=== PATIENT | female | born 1940 | race Caucasian/White ===

== ENCOUNTER 2020-06-07 19:21 | Observation (INO) | payer MEDICARE, BC ==
[2020-06-07] MEDS ORDERED: SODIUM CHLORIDE 0.9% 500 ML 500 ML IV STA (19:56)
[2020-06-07] MEDS ORDERED: ONDANSETRON 4 MG/2 ML VIAL IVP STA (19:56)
--- NOTE | 2020-06-07 20:06 | ED ---
General Adult HPI - General Chief complaint: Dizziness Stated complaint: Dizziness Time Seen by Provider: 06/07/20 19:52 Source: patient, EMS, RN notes reviewed, old records reviewed Mode of arrival: EMS Limitations: no limitations - History of Present Illness Initial comments: 79-year-old female presenting with vomiting, dizziness. Patient states she had eaten out at a restaurant, had, home and begun to do some also chores when she acutely began to vomit and felt quite dizzy. She does have a history of vertigo but states this was not the same as her typical vertigo. She reports some epigastric abdominal pain. She vomited several times at home. She denies chest pain or dyspnea. Denies focal numbness or weakness. Denies headache. - Related Data Allergies Allergy/AdvReac Type Severity Reaction Status Date / Time No Known Allergies Allergy Verified 06/07/20 19:30 Review of Systems ROS Statement: Those systems with pertinent positive or pertinent negative responses have been documented in the HPI. ROS Other: All systems not noted in ROS Statement are negative. Past Medical History Past Medical History: Hypertension Additional Past Medical History / Comment(s): Vertigo History of Any Multi-Drug Resistant Organisms: None Reported Past Surgical History: Appendectomy, Section, Cholecystectomy Past Psychological History: No Psychological Hx Reported Smoking Status: Current every day smoker Past Alcohol Use History: None Reported Past Drug Use History: None Reported General Exam Limitations: no limitations General appearance: alert, in no apparent distress Head exam: Present: atraumatic, normocephalic Eye exam: Present: normal appearance, PERRL ENT exam: Present: normal exam Neck exam: Present: normal inspection. Absent: tenderness, meningismus Respiratory exam: Present: normal lung sounds bilaterally. Absent: respiratory distress, wheezes Cardiovascular Exam: Present: regular rate, normal rhythm GI/Abdominal exam: Present: soft, tenderness (Mild epigastric tenderness). Absent: distended Extremities exam: Present: normal inspection, normal capillary refill. Absent: pedal edema Neurological exam: Present: alert, oriented X3, CN II-XII intact. Absent: motor sensory deficit Psychiatric exam: Present: normal affect, normal mood Skin exam: Present: warm, dry, intact. Absent: cyanosis, diaphoretic Course Vital Signs 06/07/20 06/07/20 06/07/20 19:23 19:32 22:12 Temperature 97.6 F Pulse Rate 72 75 Respiratory 18 18 Rate Blood Pressure 124/72 144/89 O2 Sat by Pulse 99 96 Oximetry EKG Findings - EKG Comments: EKG Findings:: EKG: Sinus rhythm with marked sinus arrhythmia occasional PVC, rate of 73, WI interval 206, QRS duration 68, QTC 467, question ST segment depression in V6. Medical Decision Making - Medical Decision Making 79-year-old presenting with acute onset nausea vomiting, dizziness. She has a nonfocal neurologic exam, no ataxia. Minimal epigastric tenderness. She has normal CBC, CO2 is 17, lactic is 2.3. She has otherwise normal laboratory testing. Chest x-ray negative for acute cardio pulmonary disease, x-ray of the abdomen is negative for obstruction or intraperitoneal free air. She will be placed in observation for IV hydration, symptom control. Case discussed with Dr. Cancino, who will admit. - Lab Data Result diagrams: 06/07/20 20:18 06/07/20 20:18 Lab Results 06/07/20 06/07/20 06/07/20 Range/Units 20:18 20:18 20:18 WBC 9.3 (3.8-10.6) k/uL RBC 3.94 (3.80-5.40) m/uL Hgb 12.1 (11.4-16.0) gm/dL Hct 38.0 (34.0-46.0) % MCV 96.5 (80.0-100.0) fL MCH 30.8 (25.0-35.0) pg MCHC 31.9 (31.0-37.0) g/dL RDW 16.8 H (11.5-15.5) % Plt Count 203 (150-450) k/uL Neutrophils % 67 % Lymphocytes % 22 % Monocytes % 6 % Eosinophils % 3 % Basophils % 1 % Neutrophils # 6.2 (1.3-7.7) k/uL Lymphocytes # 2.0 (1.0-4.8) k/uL Monocytes # 0.6 (0-1.0) k/uL Eosinophils # 0.2 (0-0.7) k/uL Basophils # 0.1 (0-0.2) k/uL Hypochromasia Slight Anisocytosis Slight PT 10.0 (9.0-12.0) sec INR 1.0 (<1.2) Sodium (137-145) mmol/L Potassium (3.5-5.1) mmol/L Chloride (98-107) mmol/L Carbon Dioxide (22-30) mmol/L Anion Gap mmol/L BUN (7-17) mg/dL Creatinine (0.52-1.04) mg/dL Est GFR (CKD-EPI)AfAm (>60 ml/min/1.73 sqM) Est GFR (CKD-EPI)NonAf (>60 ml/min/1.73 sqM) Glucose (74-99) mg/dL Plasma Lactic Acid David (0.7-2.0) mmol/L Calcium (8.4-10.2) mg/dL Total Bilirubin (0.2-1.3) mg/dL AST (14-36) U/L ALT (4-34) U/L Alkaline Phosphatase (38-126) U/L Troponin I (0.000-0.034) ng/mL Total Protein (6.3-8.2) g/dL Albumin (3.5-5.0) g/dL Urine Color Light Yellow Urine Appearance Clear (Clear) Urine pH 6.5 (5.0-8.0) Ur Specific [place] 1.012 (1.001-1.035) Urine Protein Negative (Negative) Urine Glucose (UA) Negative (Negative) Urine Ketones Negative (Negative) Urine Blood Negative (Negative) Urine Nitrite Negative (Negative) Urine Bilirubin Negative (Negative) Urine Urobilinogen <2.0 (<2.0) mg/dL Ur Leukocyte Esterase Small H (Negative) Urine RBC 1 (0-5) /hpf Urine WBC 4 (0-5) /hpf Ur Squamous Epith Cells <1 (0-4) /hpf Hyaline Casts 1 (0-2) /lpf Urine Mucus Rare H (None) /hpf 06/07/20 06/07/20 06/07/20 Range/Units 20:18 20:18 20:18 WBC (3.8-10.6) k/uL RBC (3.80-5.40) m/uL Hgb (11.4-16.0) gm/dL Hct (34.0-46.0) % MCV (80.0-100.0) fL MCH (25.0-35.0) pg MCHC (31.0-37.0) g/dL RDW (11.5-15.5) % Plt Count (150-450) k/uL Neutrophils % % Lymphocytes % % Monocytes % % Eosinophils % % Basophils % % Neutrophils # (1.3-7.7) k/uL Lymphocytes # (1.0-4.8) k/uL Monocytes # (0-1.0) k/uL Eosinophils # (0-0.7) k/uL Basophils # (0-0.2) k/uL Hypochromasia Anisocytosis PT (9.0-12.0) sec INR (<1.2) Sodium 139 (137-145) mmol/L Potassium 3.9 (3.5-5.1) mmol/L Chloride 114 H (98-107) mmol/L Carbon Dioxide 17 L (22-30) mmol/L Anion Gap 8 mmol/L BUN 19 H (7-17) mg/dL Creatinine 1.22 H (0.52-1.04) mg/dL Est GFR (CKD-EPI)AfAm 48 (>60 ml/min/1.73 sqM) Est GFR (CKD-EPI)NonAf 42 (>60 ml/min/1.73 sqM) Glucose 131 H (74-99) mg/dL Plasma Lactic Acid David 2.3 H* (0.7-2.0) mmol/L Calcium 8.7 (8.4-10.2) mg/dL Total Bilirubin 0.4 (0.2-1.3) mg/dL AST 24 (14-36) U/L ALT 9 (4-34) U/L Alkaline Phosphatase 61 (38-126) U/L Troponin I <0.012 (0.000-0.034) ng/mL Total Protein 7.9 (6.3-8.2) g/dL Albumin 3.9 (3.5-5.0) g/dL Urine Color Urine Appearance (Clear) Urine pH (5.0-8.0) Ur Specific [place] (1.001-1.035) Urine Protein (Negative) Urine Glucose (UA) (Negative) Urine Ketones (Negative) Urine Blood (Negative) Urine Nitrite (Negative) Urine Bilirubin (Negative) Urine Urobilinogen (<2.0) mg/dL Ur Leukocyte Esterase (Negative) Urine RBC (0-5) /hpf Urine WBC (0-5) /hpf Ur Squamous Epith Cells (0-4) /hpf Hyaline Casts (0-2) /lpf Urine Mucus (None) /hpf Disposition Clinical Impression: Dehydration, Nausea & vomiting Disposition: ADMITTED IP TO THIS HOSP Condition: Stable Is patient prescribed a controlled substance at d/c from ED?: No Referrals: None,Stated [Primary Care Provider] - 1-2 days Decision to Admit Reason: Admit from EC Decision Date: 06/07/20 Decision Time: 22:34
[2020-06-07 20:36] LABS: Anisocytosis Slight; Basophils # (A) 0.1 k/uL (0-0.2); Basophils % (A) 1 %; Eosinophils # (A) 0.2 k/uL (0-0.7); Eosinophils % (A) 3 %; HGB 12.1 gm/dL (11.4-16.0); Hypochromasia Slight; Lymphocytes % (A) 22 %; MCH 30.8 pg (25.0-35.0); MCHC 31.9 g/dL (31.0-37.0); MCV 96.5 fL (80.0-100.0); Mean Platelet Volume 8.5; Monocytes # (A) 0.6 k/uL (0-1.0); Monocytes % (A) 6 %; Neutrophils # (A) 6.2 k/uL (1.3-7.7); Neutrophils % (A) 67 %; Platelet Count 203 k/uL (150-450); RBC 3.94 m/uL (3.80-5.40); RDW 16.8 % (11.5-15.5); WBC 9.3 k/uL (3.8-10.6)
[2020-06-07 20:45] LABS: Albumin 3.9 g/dL (3.5-5.0); Calcium 8.7 mg/dL (8.4-10.2); Potassium 3.9 mmol/L (3.5-5.1); Total Bilirubin 0.4 mg/dL (0.2-1.3); Total Protein 7.9 g/dL (6.3-8.2)
--- NOTE | 2020-06-07 21:08 | XR ---
EXAMINATION TYPE: XR KUB DATE OF EXAM: 06/07/2020 COMPARISON: NONE HISTORY: Vomiting. Short of breath. TECHNIQUE: Single view FINDINGS: There is no sign of intestinal obstruction or pneumoperitoneum. Fecal pattern is normal. Th ere are clips from cholecystectomy. There are no pathologic calcifications over the kidneys. IMPRESSION: Nonacute abdomen.
--- NOTE | 2020-06-07 21:10 | XR ---
EXAMINATION TYPE: XR chest 2V DATE OF EXAM: 06/07/2020 COMPARISON: NONE HISTORY: Vomiting TECHNIQUE: FINDINGS: There is no heart failure nor confluent pneumonic infiltrate. There is some coarsening of i nterstitial markings. Heart size is normal. There are chest leads. There is no pleural effusion. IMPRESSION: Interstitial fibrotic changes. No heart failure.
[2020-06-07 21:45] LABS: Appearance,Urine Clear (Clear); Bilirubin,Urine Negative (Negative); Blood,Urine Negative (Negative); Color,Urine Light Yellow; Glucose,Urine (UA) Negative (Negative); Hyaline Casts,Urine 1 /lpf (0-2); Ketones,Urine Negative (Negative); Leukocyte Esterase,Urine Small (Negative); Mucus,Urine Rare /hpf; Nitrite,Urine Negative (Negative); PH, Urine 6.5 (5.0-8.0); Protein,Urine Negative (Negative); RBC,Urine 1 /hpf (0-5); Specific Gravity,Urine 1.012 (1.001-1.035); Squamous Epithelial Cell,Urine <1 /hpf (0-4); Urobilinogen,Urine <2.0 mg/dL (<2.0); WBC,Urine 4 /hpf (0-5)
[2020-06-07] MEDS ORDERED: NALOXONE 0.4 MG/ML 1 ML VIAL IV PRN (22:26)
--- NOTE | 2020-06-07 23:40 | P.HPIM ---
History of Present Illness H&P Date: 06/07/20 The patient is an 79-year-old female with a PMH of hypertension and hypothyroidism who presented to the ED with complaints of nausea, vomiting, diarrhea. Patient reports that she was in her usual state of health until this evening when she ate her supper at [employer]) where she had a cod sandwich at around 4:30 pm with her who ate the same. This subsequently returned home and she sat down on her couch to watch TV when she suddenly developed nausea with 4-5 episodes of nonbloody emesis within a period of 10-15 minutes. She also had 2 watery bowel movements, nonbloody. After her bowel movements, she began feeling lightheaded though she did not lose consciousness. She subsequently came to the emergency room where she had another 1-2 episodes of biliary emesis. At time of interview, she reported feeling better, and states that she feel as though she is back to her baseline. Aside from mild epigastric discomfort from the retching, she denied experiencing any additional symptoms. Denied chest discomfort, shortness of breath, palpitations, or diaphoresis. Reports that she has never experienced symptoms like this in the past. Further denied cough, fever, chills, headache, weakness, or numbness. In the emergency room, chest x-ray revealed interstitial fibrotic changes though otherwise unremarkable. Repeat EKG showing sinus rhythm with sinus arrhythmia a nd PVCs at 73 bpm with T-wave inversions in leads V1 and V2. KUB x-ray was unremarkable. Laboratory evaluation revealed a lactic acid of 2.3, BUN 19, creatinine 1.22, bicarb 17, troponin less than 0.012, UA unremarkable, and CBC unremarkable. Review of Systems Pertinent positives and negatives as discussed in HPI, a complete review of systems was performed and all other systems are negative. Past Medical History Past Medical History: Hypertension Additional Past Medical History / Comment(s): Vertigo History of Any Multi-Drug Resistant Organisms: None Reported Past Surgical History: Appendectomy, Section, Cholecystectomy Past Psychological History: No Psychological Hx Reported Smoking Status: Current every day smoker Past Alcohol Use History: None Reported Past Drug Use History: None Reported Medications and Allergies Allergies Allergy/AdvReac Type Severity Reaction Status Date / Time No Known Allergies Allergy Verified 06/07/20 19:30 Physical Exam Vitals: Vital Signs Temp Pulse Resp BP Pulse Ox 06/07/20 22:12 75 18 144/89 96 06/07/20 19:32 97.6 F 06/07/20 19:23 72 18 124/72 99 Intake and Output 06/07/20 06/07/20 06/08/20 14:59 22:59 06:59 Other: Weight 56.699 kg General: non toxic, no distress, appears at stated age, normal weight Derm: no unusual rashes/lesions no unusual ecchymoses, warm, dry Head: atraumatic, normocephalic, symmetric Eyes: EOMI, no lid lag, anicteric sclera, pupils equal round reactive to light ENT: Nose and ears atraumatic, no thrush, no pharyngeal erythema Neck: No thyromegaly, no cervical lymphadenopathy, trachea midline, supple Mouth: no lip lesion, mucus membranes moist Cardiovascular: S1S2 reg, no murmur, positive posterior tibial pulse bilateral, no edema, capillary refill less than 2 seconds Lungs: CTA bilateral, no rhonchi, no rales , no accessory muscle use Abdominal: soft, nontender to palpation, no guarding, no appreciable organomegaly, normal bowel sounds Ext: no gross muscle atrophy, muscle strength 5 out of 5 in all 4 extremities grossly, no contractures, Neuro: CN II-XI grossly intact, light touch intact all 4 extremities, finger to nose within normal limits, Psych: Alert, oriented, appropriate affect Results CBC & Chem 7: 06/07/20 20:18 06/07/20 20:18 Labs: Abnormal Lab Results - Last 24 Hours (Table) 06/07/20 06/07/20 06/07/20 Range/Units 20:18 20:18 20:18 RDW 16.8 H (11.5-15.5) % Chloride 114 H (98-107) mmol/L Carbon Dioxide 17 L (22-30) mmol/L BUN 19 H (7-17) mg/dL Creatinine 1.22 H (0.52-1.04) mg/dL Glucose 131 H (74-99) mg/dL Plasma Lactic Acid David (0.7-2.0) mmol/L Ur Leukocyte Esterase Small H (Negative) Urine Mucus Rare H (None) /hpf 06/07/20 Range/Units 20:18 RDW (11.5-15.5) % Chloride (98-107) mmol/L Carbon Dioxide (22-30) mmol/L BUN (7-17) mg/dL Creatinine (0.52-1.04) mg/dL Glucose (74-99) mg/dL Plasma Lactic Acid David 2.3 H* (0.7-2.0) mmol/L Ur Leukocyte Esterase (Negative) Urine Mucus (None) /hpf Assessment and Plan Plan: Nausea and vomiting, possibly toxic gastroenteritis -Conservative management for now with normal saline 100 mL an hour -Anti-emetics -Clear liquid diet Dizziness, likely orthostatic due to multiple episodes of emesis and diarrhea -Fall precautions Lactic acidosis, likely secondary to above -Monitor to resolution Kidney injury, acute versus chronic, no baseline available -Monitor BMP for now Metabolic acidosis, likely due to diarrhea with lactic acidosis -Monitor to resolution Chronic conditions: Hypertension, hypothyroidism -Hold off on home ASMITA inhibitor in setting of kidney injury -Continue with home Synthroid dose DVT prophylaxis -Heparin subq The patient is admitted with an anticipated less than 2 midnight stay for evaluation of nausea and vomiting CODE STATUS: Full Code Discussed with: Patient Anticipated discharge date: 06/[address]: Home A total of 40 minutes was spent on the care of this complex patient more than 50% of the time was spent in counseling and care coordination.
[2020-06-08] MEDS: SODIUM CHLORIDE 0.9% 1,000 ML IV SCH ×2 (00:14→07:20)
[2020-06-08] MEDS: HEPARIN SODIUM,PORCINE 5,000 UNIT/ML 1 ML VIAL SQ SCH ×2 (00:14→07:20)
[2020-06-08 06:21] LABS: Calcium 8.3 mg/dL (8.4-10.2); Potassium 4.1 mmol/L (3.5-5.1)
[2020-06-08 07:25] VITALS: BP 133/77; PULSE 70; RESP 14; TEMP 97.6
[2020-06-08] MEDS ORDERED: LEVOTHYROXINE 88 MCG TAB PO SCH (09:15)
[2020-06-08] MEDS ORDERED: PRAVASTATIN SODIUM 20 MG TAB PO SCH (09:15)
[2020-06-08] MEDS ORDERED: ASPIRIN 81 MG PO SCH (09:15)
--- NOTE | 2020-06-08 09:48 | P.DS ---
Providers Date of admission: 06/07/20 22:26 Expected date of discharge: 06/08/20 Attending physician: Flory Cancino MD Primary care physician: Stated None Hospital Course: The patient is an 79-year-old female with a PMH of hypertension and h ypothyroidism who presented to the ED with complaints of nausea, vomiting, diarrhea. Patient reports that she was in her usual state of health until this evening when she ate her supper at [employer]) where she had a cod sandwich at around 4:30 pm with her who ate the same. This subsequently returned home and she sat down on her couch to watch TV when she suddenly developed nausea with 4-5 episodes of nonbloody emesis within a period of 10-15 minutes. She also had 2 watery bowel movements, nonbloody. After her bowel movements, she began feeling lightheaded though she did not lose consciousness. She subsequently came to the emergency room where she had another 1-2 episodes of biliary emesis. At time of interview, she reported feeling better, and states that she feel as though she is back to her baseline. Aside from mild epigastric discomfort from the retching, she denied experiencing any additional symptoms. Denied chest discomfort, shortness of breath, palpitations, or diaphoresis. Reports that she has never experienced symptoms like this in the past. Further denied cough, fever, chills, headache, weakness, or numbness. In the emergency room, chest x-ray revealed interstitial fibrotic changes though otherwise unremarkable. Repeat EKG showing sinus rhythm with sinus arrhythmia and PVCs at 73 bpm with T-wave inversions in leads V1 and V2. KUB x-ray was unremarkable. Laboratory evaluation revealed a lactic acid of 2.3, BUN 19, creatinine 1.22, bicarb 17, troponin less than 0.012, UA unremarkable, and CBC unremarkable. Orthostats were negative. She was started on normal saline at 100 mL per hour for conservative management of gastroenteritis. She was able to tolerate her clear liquid diet this morning. She had no further nausea, vomiting or diarrhea. Patient was seen and examined this morning. No acute events overnight. No further symptoms since admission. Would like to go home. She denies any chest pain, shortness breath, palpitations or dizziness. General: [non toxic], [no distress], [appears at stated age] Derm: [warm], [dry] Head: [atraumatic], [normocephalic], [symmetric] Eyes: [EOMI], [no lid lag], [anicteric sclera] Mouth: [no lip lesion], [mucus membranes moist] Cardiovascular: [S1S2 reg], [no murmur], [positive DP pulse bilateral], Lungs: [CTA bilateral], [no rhonchi, no rales] , [no accessory muscle use] Abdominal: [soft], [ nontender to palpation], [no guarding], [no appreciable organomegaly] Ext: [no gross muscle atrophy], [no edema], [no contractures] Neuro: [no focal neuro deficits] Psych: [Alert], [oriented], [appropriate affect] Nausea and vomiting, possibly toxic gastroenteritis -DC IVF and encourage hydration by mouth -Anti-emetics -Clear liquid diet and advanced Kidney injury, acute versus chronic, no baseline available -Monitor BMP for now -Improved Metabolic acidosis, likely due to diarrhea with lactic acidosis -Monitor to resolution Chronic conditions: Hypertension, hypothyroidism -Hold off on home ASMITA inhibitor in setting of kidney injury -Continue with home Synthroid dose DVT prophylaxis -Heparin subq Resolved: Dizziness and lactic acidosis [Patient admitted for conservative management of gastroenteritis. Her symptoms have improved. Anticipate DC home today. ] Pertinent Studies: KUB, chest x-ray Patient Condition at Discharge: Stable Plan - Discharge Summary Discharge Rx Participant: No New Discharge Prescriptions: No Action Pravastatin Sodium [Pravachol] 10 mg PO DAILY Levothyroxine Sodium [Synthroid] 88 mcg PO DAILY Cholecalciferol [Vitamin D3 (25 Mcg = 1000 Iu)] 2,000 unit PO DAILY Aspirin [Adult Low Dose Aspirin EC] 81 mg PO DAILY amLODIPine [Norvasc] 5 mg PO DAILY Benazepril HCl 40 mg PO DAILY Discharge Medication List Aspirin [Adult Low Dose Aspirin EC] 81 mg PO DAILY 06/08/20 [History] Benazepril HCl 40 mg PO DAILY 06/08/20 [History] Cholecalciferol [Vitamin D3 (25 Mcg = 1000 Iu)] 2,000 unit PO DAILY 06/08/20 [History] Levothyroxine Sodium [Synthroid] 88 mcg PO DAILY 06/08/20 [History] Pravastatin Sodium [Pravachol] 10 mg PO DAILY 06/08/20 [History] amLODIPine [Norvasc] 5 mg PO DAILY 06/08/20 [History] Follow up Appointment(s)/Referral(s): None,Stated [Primary Care Provider] - 1-2 days
== END 2020-06-08 10:55 | disposition home or self-care (01) ==
LOC: EC 19:21 → 1SOBS 22:26
PROVIDERS: ADMIT Internal Medicine; ATTEND Internal Medicine
DX: K52.9 Noninfective gastroenteritis and colitis, unspecified (principal); E86.0 Dehydration; E87.2 Acidosis; I10 Essential (primary) hypertension; N28.9 Disorder of kidney and ureter, unspecified; R42 Dizziness and giddiness; F17.200 Nicotine dependence, unspecified, uncomplicated; E03.9 Hypothyroidism, unspecified; I49.3 Ventricular premature depolarization; Z90.49 Acquired absence of other specified parts of digestive tract; Z98.891 History of uterine scar from previous surgery
CPT/HCPCS: 96372; 96361; 96374; 99285; 36415; 93005; 80053; 80048; 83605; 84484; 85025; 85610; 81001; 71046; 74018; G0378 ×2; J1644; J2405

== ENCOUNTER 2020-09-24 08:02 | Day surgery (SDC) | payer MEDICARE, BC ==
[2020-09-18 15:42] VITALS: BMI 24.0
[~2020-09-24 08:02] MED LIST: LACTATED RINGERS 1,000 ML IV SCH; LIDOCAINE 1% (10MG/ML) FOR IV START INTRADERMA PRN
[2020-09-24 08:44] VITALS: RESP 16; TEMP 98.6
[2020-09-24] MEDS ORDERED: PROPOFOL 10 MG/ML 20 ML VIAL IV ONE (08:48)
--- NOTE | 2020-09-24 08:52 | P.GSHP ---
History of Present Illness H&P Date: 09/24/20 Chief Complaint: Blood in stool Patient here today for colonoscopy. She had a recent cologuard test comes back positive. Notices rectal bleeding rarely. Last colonoscopy 13 years ago. No family history of colon cancer. No bowel complaints. Past Medical History Past Medical History: Hyperlipidemia, Hypertension Additional Past Medical History / Comment(s): Vertigo, positive cologard History of Any Multi-Drug Resistant Organisms: None Reported Past Surgical History: Appendectomy, Section, Cholecystectomy Additional Past Surgical History / Comment(s): breast biopsy in 1986 pt stated "it turned out to be an absess." Past Anesthesia/Blood Transfusion Reactions: No Reported Reaction Smoking Status: Current every day smoker Medications and Allergies Home Medications Medication Instructions Recorded Confirmed Type Aspirin [Adult Low Dose Aspirin EC] 81 mg PO DAILY 06/08/20 09/24/20 History Benazepril HCl 40 mg PO DAILY 06/08/20 09/24/20 History Cholecalciferol [Vitamin D3 (25 2,000 unit PO DAILY 06/08/20 09/24/20 History Mcg = 1000 Iu)] Levothyroxine Sodium [Synthroid] 88 mcg PO DAILY 06/08/20 09/24/20 History Pravastatin Sodium [Pravachol] 10 mg PO DAILY 06/08/20 09/24/20 History amLODIPine [Norvasc] 5 mg PO DAILY 06/08/20 09/24/20 History Allergies Allergy/AdvReac Type Severity Reaction Status Date / Time No Known Allergies Allergy Verified 09/24/20 08:30 Surgical - Exam Vital Signs Temp Pulse Resp BP Pulse Ox 98.6 F 76 16 155/72 98 09/24/20 08:34 09/24/20 08:34 09/24/20 08:34 09/24/20 08:34 09/24/20 08:34 Physical exam: General: Well-developed, well-nourished HEENT: Normocephalic, sclerae nonicteric Abdomen: Nontender, nondistended Extremities: No edema Neuro: Alert and oriented Assessment and Plan (1) Blood in stool Narrative/Plan: Will proceed with colonoscopy Current Visit: Yes Status: Acute Code(s): K92.1 - MELENA SNOMED Code(s): 186870910
--- NOTE | 2020-09-24 09:15 | P.PCN ---
Date of Procedure: 09/24/20 Procedure(s) Performed: PREOPERATIVE DIAGNOSIS: Blood in stool POSTOPERATIVE DIAGNOSIS: Descending colon polyp, tortuous colon PROCEDURE: Colonoscopy with snare polypectomy, unable to reach cecum ANESTHESIA: MAC SURGEON: Dwayne Godoy M.D. SPECIMENS: And ascending colon polyp ENDOSCOPIC PROCEDURE: The patient was placed on the endoscopy table in the left decubitus position. The Olympus colonoscope was inserted into the anus and passed under direct visualization to the hepatic flexure. We thought we were able to visualize the cecum from a a distance however I was not completely sure of that. Numerous attempts to get to the cecum were unsuccessful. The scope was slowly withdrawn. There were no abnormalities seen throughout the transverse colon. In the descending colon a small polyp was seen and removed using the snare with cautery technique. The remainder of the descending sigmoid and rectum appeared normal. Air was no visible diverticulosis. The patient did have hemorrhoids noted. Digital rectal examination was otherwise normal. The patient was taken to the recovery room in stable condition per anesthesia guidelines. RECOMMENDATIONS: Await biopsy results. Will need barium enema 8 weeks
[2020-09-24 09:45] VITALS: BP 149/73; PULSE 67
== END 2020-09-24 10:08 | disposition home or self-care (01) ==
LOC: ORWHC2ENDO 08:02
PROVIDERS: ATTEND Surgery
DX: D12.4 Benign neoplasm of descending colon (principal); K64.9 Unspecified hemorrhoids; Q43.8 Other specified congenital malformations of intestine; E78.5 Hyperlipidemia, unspecified; I10 Essential (primary) hypertension; E07.9 Disorder of thyroid, unspecified; F17.210 Nicotine dependence, cigarettes, uncomplicated; R42 Dizziness and giddiness; Z90.49 Acquired absence of other specified parts of digestive tract; Z98.891 History of uterine scar from previous surgery; Z98.890 Other specified postprocedural states; Z90.89 Acquired absence of other organs; Z97.2 Presence of dental prosthetic device (complete) (partial); Z79.82 Long term (current) use of aspirin; Z79.890 Hormone replacement therapy; Z79.899 Other long term (current) drug therapy
CPT/HCPCS: 88305; 45385; J2704

== ENCOUNTER → 2021-12-08 | Outpatient (CLI) | payer MEDICARE, BC ==
--- NOTE | 2021-12-09 09:42 | XR ---
EXAMINATION TYPE: XR knee complete RT DATE OF EXAM: 12/08/2021 COMPARISON: NONE HISTORY: Pain TECHNIQUE: Three views are submitted. FINDINGS: Chondrocalcinosis with diffuse osteopenia. There is narrowing of the medial compartment and patellofe moral compartments of the joint space.. Osseous structures are intact. No acute fracture seen. IMPRESSION: 1. 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
== END | disposition home or self-care (01) ==
LOC: RADXRMAIN 16:40
PROVIDERS: ATTEND Family Medicine
DX: M11.261 Other chondrocalcinosis, right knee (principal); M12.861 Other specific arthropathies, not elsewhere classified, right knee; M85.861 Other specified disorders of bone density and structure, right lower leg

== ENCOUNTER → 2022-08-05 | Outpatient (CLI) | payer MEDICARE, BC ==
--- NOTE | 2022-08-05 10:59 | MM ---
Reason for Exam: Clinical finding. Last mammogram was performed 3 year(s) and 1 month(s) ago. Patient History: Menarche at age 12. First Full-Term at age 19. Postmenopausal. MG pre op needle loc LT - 2 on the Left side. Niece had breast cancer at or over age 50. Paternal aunt had breast cancer under age 50. Risk Values: Zoe 5 year model risk: 1.3%. NCI Lifetime model risk: 1.5%. Prior Study Comparison: 05/05/2017 Bilateral MG screening mammo w CAD - 2, Unknown. 05/10/2018 Bilateral MG screening mammo w CAD - 2, Unknown. 07/05/2019 Bilateral MG screening mammo w CAD - 2, Unknown. Tissue Density: The breast tissue is heterogeneously dense. This may lower the sensitivity of mammography. Findings: Analyzed By CAD. A few scattered tiny benign-appearing round calcifications in the bilateral breasts. Some benign-appearing vascular calcifications bilaterally. No suspicious new mass or distortion in either breast. Overall Assessment: Benign, BI-RAD 2 Management: Screening Mammogram of both breasts in 1 year. Manage left nipple pain on clinical basis. Results were given to the patient verbally at the time of exam. Electronically signed and approved by: Claudio Martinez M.D.
--- NOTE | 2022-08-05 11:17 | BD ---
EXAMINATION TYPE: Axial Bone Density DATE OF EXAM: 08/05/2022 COMPARISON: NONE CLINICAL HISTORY: 82 years year old Female. ICD-10 CODE: Z78.0 ASYMPTOMATIC MENOPAUSAL STATE Height: 5FT 1IN Weight: 120.6 FRAX RISK QUESTIONS: Alcohol (3 or more units per day): NO-NO Family History (Parent hip fracture): NO Glucocorticoids (More than 3mos): NO (Ex: prednisone, prednisolone, methylprednisolone, dexamethasone, and hydrocortisone). History of Fracture in Adulthood: NO Secondary Osteoporosis: YES 1. Type 1 Diabetes: NO 2. Hyperthyroidism: NO 3. Menopause before 45: NO 4. Malnutrition: NO 5. Chronic liver disease: NO Rheumatoid Arthritis: NO Current Tobacco Use: YES RISK FACTORS HISTORY OF: Family History of Osteoporosis: NONE KNOWN Active: YES Diet low in dairy products/other sources of calcium: YES Postmenopausal woman: YES Lost more than 2 inches in height since high school: YES Frequent falls: NO Poor Health: YES Hyperparathyroidism: NO Adrenal Insufficiency: NO MEDICATIONS: Additional Medications: BENZAPRIL, AMLODIPINE, SYNTHROID Additional History: EXAM MEASUREMENTS: Bone mineral densitometry was performed using the Taggs System. Bone mineral density as measured about the Lumbar spine is: ----- L1-L4(G/cm2): 1.011 T Score Values are as follows: ----- L1: -2.1 ----- L2: -2.8 ----- L3: -1.2 ----- L4: 0.0 ----- L1-L4: -1.4 PREVIOUS ELSEWHERE Bone mineral density about the R hip (g/cm2): 0.558 Bone mineral density about the L hip (g/cm2): 0.551 T Score values are as follows: -----R Neck: -3.8 -----L Neck: -3.6 -----R Total: -3.6 -----L Total: -3.6 PREVIOUS ELSEWHERE FRAX%s: The graph provided illustrates a 35.5% chance for a major osteoporotic fx and a 23.7% chance for the hips probability for fx in 10 years time. IMPRESSION: Osteoporosis (T Score less than -2.5). There is increased fracture risk and therapy is usually indicated based on age. Re-Screen 1-2 years. NOTE: T-SCORE=SD OF THE YOUNG ADULT MEAN.
== END | disposition home or self-care (01) ==
LOC: RADBDWWP 09:50
PROVIDERS: ATTEND Family Medicine
DX: M81.0 Age-related osteoporosis without current pathological fracture (principal); N64.4 Mastodynia; Z78.0 Asymptomatic menopausal state; Z80.3 Family history of malignant neoplasm of breast
CPT/HCPCS: 77066; 77080

== ENCOUNTER 2022-12-28 17:31 | Observation (INO) | payer MEDICARE, BC ==
--- NOTE | 2022-12-28 17:39 | ED ---
ENT HPI - General Source: patient <MenloAkua - Last Filed: 12/28/22 17:35> <Jeanne Grimm - Last Filed: 12/28/22 20:34> - General Chief complaint: ENT Stated complaint: Bleeding left nostril Time Seen by Provider: 12/28/22 17:35 - History of Present Illness Initial comments: Patient is 82-year-old female presents to the emergency room with complaints of epistaxis ongoing throughout the day today out of her left nostril. She reports the symptoms began after blowing her nose earlier in the day. She has applied cotton pressure which has helped the bleeding and it is not currently bleeding at this time. She states that she has had problems with occasional nosebleeds since being placed on Xarelto for atrial fibrillation. She denies taking any antihistamines or nasal sprays. She denies any other symptoms including any headache, dizziness, congestion, difficulty in breathing, nausea, vomiting, fevers or chills. (Akua Horta) I agree with the above HPI. No injury to the face or nose. No recent falls. No chest pain, shortness of breath, lightheadedness. (Jeanne Grimm) - Related Data Home Medications Medication Instructions Recorded Confirmed Aspirin [Adult Low Dose Aspirin EC] 81 mg PO DAILY 06/08/20 09/24/20 Benazepril HCl 40 mg PO DAILY 06/08/20 09/24/20 Cholecalciferol [Vitamin D3 (25 2,000 unit PO DAILY 06/08/20 09/24/20 Mcg = 1000 Iu)] Levothyroxine Sodium [Synthroid] 88 mcg PO DAILY 06/08/20 09/24/20 Pravastatin Sodium [Pravachol] 10 mg PO DAILY 06/08/20 09/24/20 amLODIPine [Norvasc] 5 mg PO DAILY 06/08/20 09/24/20 Allergies Allergy/AdvReac Type Severity Reaction Status Date / Time No Known Allergies Allergy Verified 12/28/22 18:25 Review of Systems ROS Other: All systems not noted in ROS Statement are negative. <Akua Horta - Last Filed: 12/28/22 17:35> ROS Other: All systems not noted in ROS Statement are negative. <Jeanne Grimm - Last Filed: 12/28/22 20:34> ROS Statement: Those systems with pertinent positive or pertinent negative responses have been documented in the HPI. Past Medical History Past Medical History: Hyperlipidemia, Hypertension Additional Past Medical History / Comment(s): Vertigo, positive cologard History of Any Multi-Drug Resistant Organisms: None Reported Past Surgical History: Appendectomy, Section, Cholecystectomy Additional Past Surgical History / Comment(s): breast biopsy in 1986 pt stated "it turned out to be an absess." Past Anesthesia/Blood Transfusion Reactions: No Reported Reaction Smoking Status: Current every day smoker <Akua Horta - Last Filed: 12/28/22 17:35> General Exam <Akua Horta - Last Filed: 12/28/22 17:35> General appearance: alert, in no apparent distress Head exam: Present: atraumatic, normocephalic, normal inspection Eye exam: Present: normal appearance, PERRL, EOMI. Absent: scleral icterus, conjunctival injection, periorbital swelling ENT exam: Present: other (right nostril: no evidence of trauma or prior bleed left nostril: clot visualized no evidence of trauma no active bleeding ) Respiratory exam: Present: normal lung sounds bilaterally. Absent: respiratory distress, wheezes, rales, rhonchi, stridor Cardiovascular Exam: Present: regular rate, normal heart sounds. Absent: normal rhythm (patient has known a fib ), systolic murmur, diastolic murmur, rubs, ga llop, clicks Neurological exam: Present: alert, oriented X3, CN II-XII intact Psychiatric exam: Present: normal affect, normal mood Skin exam: Present: warm, dry, intact, normal color. Absent: rash <Jeanne Grimm - Last Filed: 12/28/22 20:34> - General Exam Comments Initial Comments: Visual Physical Exam Vital signs reviewed General: Well-appearing, nontoxic, no acute distress. Head: Normocephalic, atraumatic Eyes: PERRLA, EOMI ENT: Airway patent Chest: Nonlabored breathing Skin: No visual rash, normal skin tone Neuro: Alert and oriented 3 Musculoskeletal: No gross abnormalities noted, patient in wheelchair. (Akua Horta) Course Vital Signs 12/28/22 18:21 Temperature 98.0 F Pulse Rate 76 Respiratory 20 Rate Blood Pressure 127/73 O2 Sat by Pulse 100 Oximetry Medical Decision Making - Lab Data Result diagrams: 12/28/22 18:44 <Jeanne Grimm - Last Filed: 12/28/22 20:34> - Lab Data Lab Results 12/28/22 12/28/22 Range/Units 18:44 18:44 WBC 7.4 (3.8-10.6) k/uL RBC 3.06 L (3.80-5.40) m/uL Hgb 6.6 L* (11.4-16.0) gm/dL Hct 23.6 L (34.0-46.0) % MCV 77.2 L (80.0-100.0) fL MCH 21.6 L (25.0-35.0) pg MCHC 28.0 L (31.0-37.0) g/dL RDW 17.6 H (11.5-15.5) % Plt Count 305 (150-450) k/uL MPV 8.2 Neutrophils % (Manual) 70 % Lymphocytes % (Manual) 19 % Monocytes % (Manual) 10 % Eosinophils % (Manual) 1 % Neutrophils # (Manual) 5.18 (1.3-7.7) k/uL Lymphocytes # (Manual) 1.41 (1.0-4.8) k/uL Monocytes # (Manual) 0.74 (0-1.0) k/uL Eosinophils # (Manual) 0.07 (0-0.7) k/uL Nucleated RBCs 0 (0-0) /100 WBC Hypochromasia Marked Poikilocytosis Moderate Anisocytosis Slight Microcytosis Slight PT 13.9 H (9.0-12.0) sec INR 1.4 H (<1.2) APTT 28.1 (22.0-30.0) sec Disposition <Akua Horta - Last Filed: 12/28/22 17:35> <Jeanne Grimm - Last Filed: 12/28/22 20:34> Clinical Impression: Epistaxis, Anemia Disposition: ADMITTED IP TO THIS [facility] Condition: Stable Referrals: Magda Soto, KWASI [REFERRING] - 1-2 days
[2022-12-28 19:18] LABS: Anisocytosis Slight; HCT 23.6 % (34.0-46.0); Hypochromasia Marked; MCH 21.6 pg (25.0-35.0); MCV 77.2 fL (80.0-100.0); Mean Platelet Volume 8.2; Microcytosis Slight; Platelet Count 305 k/uL (150-450); Poikilocytosis Moderate; RBC 3.06 m/uL (3.80-5.40); RDW 17.6 % (11.5-15.5); WBC 7.4 k/uL (3.8-10.6)
[2022-12-28 19:22] LABS: INR 1.4 (<1.2); Partial Thromboplastin Time 28.1 sec (22.0-30.0); Prothrombin Time 13.9 sec (9.0-12.0)
[2022-12-28 19:24] LABS: HGB 6.6 gm/dL (11.4-16.0)
[2022-12-28 19:58] LABS: Eosinophils # (M) 0.07 k/uL (0-0.7); Lymphocytes # (M) 1.41 k/uL (1.0-4.8); Monocytes # (M) 0.74 k/uL (0-1.0); Neutrophils # (M) 5.18 k/uL (1.3-7.7); Neutrophils % (M) 70 %; Nucleated Red Blood Cells 0 /100 WBC (0-0); Total Cells Counted 100
[2022-12-28] MEDS ORDERED: NALOXONE 0.4 MG/ML 1 ML VIAL IV PRN (20:26)
[2022-12-28] MEDS ORDERED: SODIUM CHLORIDE 0.9% 1,000 ML IV STA (20:28)
[2022-12-29] MEDS ORDERED: METOPROLOL SUCCINATE (ER) 25 MG TAB.ER.24H PO SCH (09:00)
[2022-12-29] MEDS ORDERED: LEVOTHYROXINE 100 MCG TAB PO SCH (09:00)
[2022-12-29] MEDS ORDERED: PANTOPRAZOLE 40 MG/10 ML VIAL IVP SCH (09:00)
[2022-12-29] MEDS ORDERED: PRAVASTATIN SODIUM 20 MG TAB PO SCH (09:00)
[2022-12-29 10:57] LABS: Anisocytosis Slight; Basophils % (A) 1 %; Eosinophils % (A) 0 %; HCT 28.3 % (34.0-46.0); Hypochromasia Marked; Lymphocytes # (A) 1.3 k/uL (1.0-4.8); Lymphocytes % (A) 16 %; MCHC 29.3 g/dL (31.0-37.0); MCV 78.6 fL (80.0-100.0); Mean Platelet Volume 8.5; Microcytosis Slight; Monocytes # (A) 0.7 k/uL (0-1.0); Monocytes % (A) 8 %; Neutrophils # (A) 6.2 k/uL (1.3-7.7); Neutrophils % (A) 74 %; Platelet Count 274 k/uL (150-450); Poikilocytosis Marked; RBC 3.59 m/uL (3.80-5.40); RDW 17.4 % (11.5-15.5); WBC 8.4 k/uL (3.8-10.6)
[2022-12-29 10:58] LABS: HGB 8.3 gm/dL (11.4-16.0)
[2022-12-29] MEDS: ARTIFICIAL TEARS-HYPROMELLOSE DROPS 15 ML BTL BOTH EYES SCH ×2 (11:33→13:16)
[2022-12-29 12:27] LABS: Poikilocytosis (M) Present; Polychromasia Present
--- NOTE | 2022-12-29 12:31 | P.HPIM ---
History of Present Illness H&P Date: 12/29/22 Chief Complaint: Nosebleed History of physical and discharge summary This is a pleasant 82-year-old female with a past medical history of atrial fibr illation on aspirin and Xarelto ,hypertension, hyperlipidemia, hypothyroidism, ongoing nicotine dependence, chronic kidney disease stage III and multiple other medical issues presented to the ER with complaints of nose bleeding ongoing throughout the day. Denies fall/trauma. Denies syncope. Reports it initiated after blowing her nose earlier and was unable to stop the bleed with pressure. Patient is on Xarelto and aspirin and reported to the ER that she has occasional nosebleeds since being placed on Xarelto. Denies nasal sprays. Denies chest pain, palpitations or shortness of breath. Denies lightheadedness dizziness or focal deficits. Denies nausea, vomiting or diarrhea. Hemoglobin 6.6, platelets 305, INR 1.4. Receive 1 unit of packed RBCs, follow-up hemoglobin pending. Review of Systems ROS Statement: Those systems with pertinent positive or pertinent negative responses have been documented in the HPI. ROS Other: All systems not noted in ROS Statement are negative. Past Medical History Past Medical History: Hyperlipidemia, Hypertension Additional Past Medical History / Comment(s): Vertigo, positive cologard History of Any Multi-Drug Resistant Organisms: None Reported Past Surgical History: Appendectomy, Section, Cholecystectomy Additional Past Surgical History / Comment(s): breast biopsy in 1986 pt stated "it turned out to be an absess." Past Anesthesia/Blood Transfusion Reactions: No Reported Reaction Past Psychological History: No Psychological Hx Reported Smoking Status: Current every day smoker Past Alcohol Use History: None Reported Past Drug Use History: None Reported Medications and Allergies Home Medications Medication Instructions Recorded Confirmed Type Benazepril HCl 40 mg PO DAILY 06/08/20 12/28/22 History Pravastatin Sodium [Pravachol] 10 mg PO DAILY 06/08/20 12/28/22 History Alendronate Sodium 70 mg PO BUNDY 12/28/22 12/28/22 History Carboxymethylcellulose Sodium 1 drop BOTH EYES QID 12/28/22 12/28/22 History [Refresh Tears] Levothyroxine Sodium 100 mcg PO DAILY 12/28/22 12/28/22 History Metoprolol Succinate [Metoprolol 25 mg PO DAILY 12/28/22 12/28/22 History Succinate ER] Vit C/E/Zn/Coppr/Lutein/Zeaxan 1 cap PO BID 12/28/22 12/28/22 History [Preservision Areds 2 Softgel] Aspirin [Adult Low Dose Aspirin EC] 81 mg PO DAILY #0 12/29/22 12/28/22 Rx Rivaroxaban [Xarelto] 20 mg PO W/SUPPER #0 12/29/22 12/28/22 Rx Allergies Allergy/AdvReac Type Severity Reaction Status Date / Time No Known Allergies Allergy Verified 12/28/22 21:02 Physical Exam Vitals: Vital Signs Temp Pulse Resp BP Pulse Ox 12/29/22 08:18 97.9 F 74 18 127/74 98 12/29/22 04:00 82 16 160/97 98 12/29/22 03:00 87 16 161/82 98 12/29/22 02:00 88 16 156/93 96 12/29/22 01:42 977 F H 84 16 162/91 98 12/29/22 01:40 97.7 F 84 16 162/91 98 12/29/22 01:00 87 16 156/91 95 12/29/22 00:09 136/96 12/29/22 00:00 97.9 F 88 16 145/88 98 12/28/22 23:00 89 16 153/76 12/28/22 22:46 97.7 F 89 16 153/76 98 12/28/22 22:26 97.8 F 83 16 159/79 98 12/28/22 22:19 84 16 151/86 12/28/22 22:00 97.8 F 88 16 151/86 99 12/28/22 20:46 98.1 F 78 14 150/80 97 12/28/22 18:21 98.0 F 76 20 127/73 100 Intake and Output 12/28/22 12/29/22 12/29/22 22:59 06:59 14:59 Intake Total 0 310 Balance 0 310 Intake: Blood Product 0 310 Rc As-1 Unit 0 310 [id number] Other: Weight 56.245 kg PHYSICAL EXAM: VITAL SIGNS: [As above] GENERAL: Sitting up in bed, no acute distress HEENT: Conjunctivae normal. eyes normal. NECK: Supple, No JVD. No thyroid enlargement. No LNs CARDIOVASCULAR: S1, S2 regular. No murmur RESPIRATION: Nonlabored, Breath sounds diminished in the bases. No rhonchi or crackles. No bronchial breathing. ABDOMEN: Soft, nontender . No guarding. no masses palpable. No ascites, No hepatosplenomegaly.Bowel sounds heard. LEGS: No edema. no swelling PSYCHIATRY: Alert and oriented X3, mood and affect normal. NERVOUS SYSTEM: Cranial N 2-12 grossly normal. No focal deficits. Strength and sensation grossly intact. Skin: Warm and dry, no rash Results CBC & Chem 7: 12/29/22 09:22 Labs: Abnormal Lab Results - Last 24 Hours (Table) 12/28/22 12/28/22 12/28/22 Range/Units 18:44 18:44 20:11 RBC 3.06 L (3.80-5.40) m/uL Hgb 6.6 L* (11.4-16.0) gm/dL Hct 23.6 L (34.0-46.0) % MCV 77.2 L (80.0-100.0) fL MCH 21.6 L (25.0-35.0) pg MCHC 28.0 L (31.0-37.0) g/dL RDW 17.6 H (11.5-15.5) % PT 13.9 H (9.0-12.0) sec INR 1.4 H (<1.2) Crossmatch See Detail 12/29/22 Range/Units 09:22 RBC 3.59 L (3.80-5.40) m/uL Hgb 8.3 L D (11.4-16.0) gm/dL Hct 28.3 L (34.0-46.0) % MCV 78.6 L (80.0-100.0) fL MCH 23.0 L (25.0-35.0) pg MCHC 29.3 L (31.0-37.0) g/dL RDW 17.4 H (11.5-15.5) % PT (9.0-12.0) sec INR (<1.2) Crossmatch Assessment and Plan Assessment: Acute blood loss anemia secondary to Epistaxis, status post 1 unit packed RBCs, resolved with no further bleeding. Aspirin and Xarelto placed on hold. Patient advised to hold for 1 week and then resume. Hypertension Hyperlipidemia Chronic kidney disease stage III Chronic anemia secondary to the above Hypothyroidism Vertigo Positive cologard, further follow-up outpatient as per PCP Vertigo, chronic Ongoing nicotine dependence Plan: Continue on current medication regime ,monitoring and symptomatic treatment. Significant clinical improvement. Bleeding has subsided, no further bleeding since yesterday. Status post 1 unit of packed RBCs with follow-up hemoglobin pending. Patient will be discharged home today in a stable condition with guarded prognosis pending patient continues to have no bleeding, follow-up hemoglobin improving. Patient has been advised to hold on aspirin and Xarelto 1 week and then resume. Discharge Medication List Benazepril HCl 40 mg PO DAILY 06/08/20 [History] Pravastatin Sodium [Pravachol] 10 mg PO DAILY 06/08/20 [History] Alendronate Sodium 70 mg PO BUNDY 12/28/22 [History] Carboxymethylcellulose Sodium [Refresh Tears] 1 drop BOTH EYES QID 12/28/22 [History] Levothyroxine Sodium 100 mcg PO DAILY 12/28/22 [History] Metoprolol Succinate [Metoprolol Succinate ER] 25 mg PO DAILY 12/28/22 [History] Vit C/E/Zn/Coppr/Lutein/Zeaxan [Preservision Areds 2 Softgel] 1 cap PO BID 12/28/22 [History] Aspirin [Adult Low Dose Aspirin EC] 81 mg PO DAILY #0 12/29/22 [Rx] Famotidine [Pepcid] 20 mg PO BID #60 tablet 12/29/22 [Rx] Rivaroxaban [Xarelto] 20 mg PO W/SUPPER #0 12/29/22 [Rx] The impression and plan of care has been dictated as directed. : I performed a history and examination of this patient, discussed the same with the dictator. I agree with the dictator's note ,documented as a scribe. Any ad ditional findings or plans will be noted.
[2022-12-29 14:21] VITALS: BP 162/78; PULSE 83; RESP 16; TEMP 97.8
== END 2022-12-29 14:43 ==
LOC: EC 17:31 → 6NMEDSUR 20:26
PROVIDERS: ADMIT Family Medicine; ATTEND Family Medicine
DX: D62 Acute posthemorrhagic anemia (principal); R04.0 Epistaxis; I12.9 Hypertensive chronic kidney disease with stage 1 through stage 4 chronic kidney disease, or unspecified chronic kidney disease; N18.30 Chronic kidney disease, stage 3 unspecified; I48.0 Paroxysmal atrial fibrillation; E03.9 Hypothyroidism, unspecified; E78.5 Hyperlipidemia, unspecified; F17.200 Nicotine dependence, unspecified, uncomplicated; R42 Dizziness and giddiness; R19.5 Other fecal abnormalities; Z79.01 Long term (current) use of anticoagulants; Z79.82 Long term (current) use of aspirin; Z79.890 Hormone replacement therapy; Z79.899 Other long term (current) drug therapy; Z90.49 Acquired absence of other specified parts of digestive tract; Z98.891 History of uterine scar from previous surgery; Z98.890 Other specified postprocedural states
CPT/HCPCS: 96374; 36430; 99284; 36415; 86900; 86901; 85025 ×2; 85610; 85730; 86850; 86920; G0378; P9016; C9113

== ENCOUNTER → 2023-03-08 | Outpatient (CLI) | payer MEDICARE, BC ==
--- NOTE | 2023-03-08 16:01 | XR ---
EXAMINATION TYPE: XR chest 2V DATE OF EXAM: 03/08/2023 COMPARISON: 01/23/2023 TECHNIQUE: PA and lateral views submitted. HISTORY: Inflammation FINDINGS: The lungs are clear and there is no pneumothorax, or focal pneumonia. There is hyperexpansion of the lungs and there is borderline cardiomegaly with diffuse interstitial pattern. Diffuse osteopenia. Th ere is blunting of the right costophrenic angle. Osseous structures demonstrate hypertrophic and dege nerative changes of the spine. IMPRESSION: 1. COPD correlate for mild chronic interstitial lung disease. Tiny right pleural effusion suggested.
[2023-03-09 10:19] LABS: Angiotensin-1 Converting Enz. 16 U/L (8-52)
[2023-03-09 15:54] LABS: HLA B27 NEGATIVE
== END | disposition home or self-care (01) ==
LOC: LABWHC1 14:49
PROVIDERS: ATTEND Ophthalmology
DX: H20.00 Unspecified acute and subacute iridocyclitis (principal)
CPT/HCPCS: 36415; 71046; 82164; 85549; 86618; 86780; 86812

== ENCOUNTER → 2023-08-06 | Outpatient (CLI) | payer MEDICARE, BC ==
--- NOTE | 2023-08-09 14:34 | MM ---
Reason for Exam: Screening (asymptomatic). Last screening mammogram was performed 12 month(s) ago. Patient History: Menarche at age 12. First Full-Term at age 19. Postmenopausal. MG pre op needle loc LT - 2 on the Left side. Niece had breast cancer at or over age 50. Paternal aunt had breast cancer under age 50. Risk Values: Zoe 5 year model risk: 1.2%. NCI Lifetime model risk: 1.2%. Prior Study Comparison: 05/10/2018 Bilateral MG screening mammo w CAD - 2, Unknown. 07/05/2019 Bilateral MG screening mammo w CAD - 2, Unknown. 08/05/2022 Bilateral MG diagnostic mammo w CAD MENDO[facility], PH. Tissue Density: The breast tissue is heterogeneously dense. This may lower the sensitivity of mammography. Findings: Analyzed By CAD. There is no suspicious group of microcalcifications or new suspicious mass in either breast. Overall Assessment: Benign, BI-RAD 2 Management: Screening Mammogram of both breasts in 1 year. . Patient should continue monthly self-breast exams. A clinical breast exam by your physician is recommended on an annual basis. This exam should not preclude additional follow-up of suspicious palpable abnormalities. Note on Zoe scores and lifetime risk: 1. A Zoe score greater than 3% is considered moderate risk. If this is the case, consider specialist referral to assess eligibility for a risk reducing agent. 2. If overall lifetime risk for the development of breast cancer is 20% or higher, the patient may qualify for future screening with alternating mammogram and breast MRI. Electronically signed and approved by: Cyril Suggs M.D. Radiologis
== END | disposition home or self-care (01) ==
LOC: RADMAMWWP 14:33
PROVIDERS: ATTEND Family Medicine
DX: Z12.31 Encounter for screening mammogram for malignant neoplasm of breast (principal); Z78.0 Asymptomatic menopausal state; Z80.3 Family history of malignant neoplasm of breast
CPT/HCPCS: 77063; 77067

== ENCOUNTER → 2024-04-19 | Outpatient (CLI) | payer MEDICARE, BC ==
--- NOTE | 2024-04-19 16:01 | XR ---
EXAMINATION TYPE: XR thoracic spine 2V DATE OF EXAM: 04/19/2024 3:33 PM CLINICAL INDICATION:Female, 83 years old with history of M54.6 THORACIC PAIN; [facility] COMPARISON: None TECHNIQUE: XR thoracic spine 2V views of the spine in Frontal and lateral projections. FINDINGS: No evidence of acute fracture. There is scattered multilevel disk space narrowing without loss of ve rtebral body height. There is normal alignment of the thoracic vertebral bodies. Scattered osteophyte formation along the anterior and lateral aspects of the vertebral bodies. Neural foramen are patent given limitations of this exam. Spinal canal appears patent. IMPRESSION: 1. No acute osseous pathology. 2. Moderate multilevel degeneration changes of the spine.
--- NOTE | 2024-04-19 16:03 | XR ---
EXAMINATION TYPE: XR abdomen 2V DATE OF EXAM: 04/19/2024 3:33 PM CLINICAL INDICATION:Female, 83 years old with history of M54.6 THORACIC PAIN; [facility] COMPARISON: None. TECHNIQUE: Two views of the abdomen were obtained. FINDINGS: The bowel gas pattern is nonspecific without dilated loops of small or large bowel. There i s no evidence for organomegaly or pneumoperitoneum. The osseous structures are intact. No abnormal calcifications are present. Fecal material and gas are demonstrated throughout the colon and rectum. Right upper quadrant clips possibly cholecystectomy clips. IMPRESSION: Nonspecific bowel gas pattern without radiographic evidence for acute process.
== END | disposition home or self-care (01) ==
LOC: RADXRMAIN 15:09
PROVIDERS: ATTEND Family Medicine
DX: K31.89 Other diseases of stomach and duodenum (principal); M54.6 Pain in thoracic spine
CPT/HCPCS: 72070; 74019

== ENCOUNTER 2024-04-21 14:50 | Emergency (ER) | payer MEDICARE, BC ==
[2024-04-21] MEDS: CYCLOBENZAPRINE 5 MG TAB PO STA (16:46)
[2024-04-21] MEDS: ACETAMINOPHEN TAB 500 MG TAB PO STA (16:46)
[2024-04-21] MEDS: LIDOCAINE 4% PATCH TOPICAL ONE (17:11)
[2024-04-21 17:17] VITALS: RESP 16
--- NOTE | 2024-04-21 17:35 | CT ---
EXAMINATION TYPE: CT chest wo con CT DLP: 233.2 mGycm, Automated exposure control for dose reduction was used. DATE OF EXAM: 04/21/2024 5:03 PM COMPARISON: Chest radiograph 03/08/2023. CLINICAL INDICATION:Female, 83 years old with history of mid/upper T spine/right post rib pain; PH[facility], mid/upper T spine/right post rib pain TECHNIQUE: Multiple axial images were obtained through the chest. Sagittal and coronal reformats were created for review. Contrast used: mL of (None if empty) Oral contrast used: (None if empty) FINDINGS: LUNGS/ PLEURA: No gross consolidation identified. Moderately severe emphysematous change. AIRWAY: Patent and unremarkable. HEART: Moderately enlarged.. MEDIASTINUM: No gross evidence of adenopathy. VASCULATURE: No aortic aneurysm. MUSCULOSKELETAL: No acute osseous abnormalities. Approximately T2, T6 and mildly T2 anterior wedging of vertebral bodies.1 SOFT TISSUES/LYMPH NODES: Unremarkable. LOWER NECK: No significant findings. UPPER ABDOMEN: Cholecystectomy clips in the gallbladder. No acute process. IMPRESSION: Emphysema. Moderately severe
--- NOTE | 2024-04-21 17:53 | CT ---
EXAMINATION TYPE: CT thoracic spine wo con CT DLP: 233.2 mGycm, Automated exposure control for dose reduction was used. DATE OF EXAM: 04/21/2024 5:03 PM COMPARISON: . CLINICAL INDICATION:Female, 83 years old with history of mid/upper T spine/right post rib pain; [facility], mid/upper T spine/right post rib pain TECHNIQUE: Axial images of the thoracic spine were obtained without contrast. Coronal and sagittal re formats were performed. 3-D reformats of the bones were created on a separate workstation and submitt ed for review. CT DLP: 233.2 mGycm, Automated exposure control for dose reduction was used. Contrast used: mL of , none Oral contrast used: none FINDINGS: Vertebra are osteoporotic. Osteoporotic anterior wedge compression deformities are seen in volving T3 and T7. This produces slightly exaggerated dorsal spine kyphosis. Intervertebral discs an d osseous structures have normal appearance. I do not see any evidence of extradural defects nor significant spinal canal narrowing at any thoraci c vertebral body level. IMPRESSION: No spinal canal or neural foraminal stenosis is identified. Osteoporotic anterior wedge compression deformities of T3 and T7
--- NOTE | 2024-04-21 18:30 | ED ---
General Adult HPI - General Chief complaint: Back Pain/Injury Stated complaint: Back Pain Time Seen by Provider: 04/21/24 16:25 Source: patient, RN notes reviewed, old records reviewed Mode of arrival: ambulatory Limitations: no limitations - History of Present Illness Initial comments: Patient is an 83-year-old female presents emergency department complaining of back pain. Has been ongoing for 1 week. Had x-rays yesterday with PCP and given a prescription for Toradol however patient cannot take it as she is on a blood thinner. States the pain is worse and presents emergency department for evaluation. States it is primarily over the right side of her back next to the thoracic spine. States it started after sitting for a long time at a 1 week ago. Worse with movements. Denies any other acute complaints at this time. Denies any falls or trauma. Presents for further evaluation. Did not hit her head. Has only been taking Tylenol at home for pain control. Presents with family over concern for her continued pain. - Related Data Home Medications Medication Instructions Recorded Confirmed Pravastatin Sodium [Pravachol] 10 mg PO DAILY 06/08/20 01/23/23 Alendronate Sodium 70 mg PO BUNDY 12/28/22 01/23/23 Carboxymethylcellulose Sodium 1 drop BOTH EYES QID 12/28/22 01/23/23 [Refresh Tears] Levothyroxine Sodium 100 mcg PO DAILY 12/28/22 01/23/23 Vit C/E/Zn/Coppr/Lutein/Zeaxan 1 cap PO BID 12/28/22 01/23/23 [Preservision Areds 2 Softgel] Previous Rx's Medication Instructions Recorded Famotidine [Pepcid] 20 mg PO BID #60 tablet 12/29/22 Apixaban [Eliquis] 2.5 mg PO BID #60 tab 01/26/23 Furosemide [Lasix] 40 mg PO DAILY #30 tab 01/26/23 Metoprolol Succinate [Toprol XL] 50 mg PO DAILY #90 tab 01/26/23 Cyclobenzaprine [Flexeril] 5 mg PO TID PRN 7 Days #21 tablet 04/21/24 Lidocaine 5% Patch [Lidoderm 5% 1 patch TOPICAL DAILY PRN 14 Days 04/21/24 Patch] #14 patch Allergies Allergy/AdvReac Type Severity Reaction Status Date / Time No Known Allergies Allergy Verified 04/21/24 15:03 Review of Systems ROS Statement: Those systems with pertinent positive or pertinent negative responses have been documented in the HPI. Review of Systems: CONST: Denies fever EYES: Denies blurry vision ENT: Denies nasal congestion C/V: Denies Chest pain RESP: Denies shortness of breath GI: Denies abdominal pain : Denies dysuria SKIN: Denies rash. MSK: Endorses back pain NEURO: Denies headache ROS Other: All systems not noted in ROS Statement are negative. Past Medical History Past Medical History: Atrial Fibrillation, Heart Failure, Hyperlipidemia, Hypertension, Thyroid Disorder Additional Past Medical History / Comment(s): Vertigo, positive cologard History of Any Multi-Drug Resistant Organisms: None Reported Past Surgical History: Appendectomy, Section, Cholecystectomy Additional Past Surgical History / Comment(s): breast biopsy in 1986 pt stated "it turned out to be an absess." Past Anesthesia/Blood Transfusion Reactions: No Reported Reaction Past Psychological History: No Psychological Hx Reported Smoking Status: Current every day smoker Past Alcohol Use History: None Reported Past Drug Use History: None Reported - Past Family History Mother Family Medical History: Cancer Additional Family Medical History / Comment(s): Gallbladder cancer Father Family Medical History: Myocardial Infarction ([place]) General Exam - General Exam Comments Initial Comments: General: Appears in no acute distress. HEAD: Normal with no signs of head trauma. EYES: EOMI ENT: Hearing grossly intact, normal oropharynx. RESPIRATORY: Clear breath sounds bilaterally. No wheezes, rales, or rhonchi. C/V: Regular rate and rhythm. S1 and S2 auscultated, no edema, peripheral pulses 2+ and intact throughout ABD: Abd is soft, nontender, nondistended EXT: Normal range of motion, no obvious deformity. Mild midline mid thoracic spine tenderness to palpation but mostly paraspinal muscle tenderness to palpation on the right. No obvious step-offs or deformities. No obvious injuries. SKIN: No rashes or lesions observed on exposed skin. NEURO: Alert and oriented x 4. Limitations: no limitations Course Vital Signs 04/21/24 04/21/24 04/21/24 14:58 17:16 19:06 Temperature 97.8 F 98.1 F Pulse Rate 94 80 87 Respiratory 18 16 16 Rate Blood Pressure 147/84 151/89 148/84 O2 Sat by Pulse 99 98 96 Oximetry Medical Decision Making - Medical Decision Making Was pt. sent in by a medical professional or institution ([facility], [facility], urgent care, hospital, or group home...) When possible be specific @ -No Did you speak to anyone other than the patient for history (EMS, parent, family, police, friend...)? What history was obtained from this source @ -No Did you review nursing and triage notes (agree or disagree)? Why? @ -I reviewed and agree with nursing and triage notes Were old charts reviewed (outside hosp., previous admission, EMS record, old EKG, old radiological studies, urgent care reports/EKG's, group home records)? Report findings @ -No old charts were reviewed Differential Diagnosis (chest pain, altered mental status, abdominal pain women, abdominal pain men, vaginal bleeding, weakness, fever, dyspnea, syncope, headache, dizziness, GI bleed, back pain, seizure, CVA, palpatations, mental health, musculoskeletal)? @ -Differential Back Pain: Strain, zoster, cauda equina syndrome, epidural abscess, vertebral osteomyelitis, discitis, fracture, subluxation, disc herniation, DJD, spinal stenosis, dissection, AAA, pancreatitis, peptic ulcer disease, pyelonephritis, kidney stone, this is not meant to be an all-inclusive list. EKG interpreted by me (3pts min.). @ -None done X-rays interpreted by me (1pt min.). @ -None done CT interpreted by me (1pt min.). @ -CT chest shows emphysema but no other obvious injuries. CT C-spine shows compression fractures at T3 and T7 of indeterminate age. U/S interpreted by me (1pt. min.). @ -None done What testing was considered but not performed or refused? (CT, X-rays, U/S, labs)? Why? @ -None What meds were considered but not given or refused? Why? @ -None Did you discuss the management of the patient with other professionals (professionals i.e. [facility], [facility], lab, RT, psych nurse, social worker assistant, toxicologist, teacher, ground defence officer, continuous pillowcase cutter)? Give summary @ -No Was smoking cessation discussed for >3mins.? @ -No Was critical care preformed (if so, how long)? @ -No Were there social determinants of health that impacted care today? How? (Homelessness, low income, unemployed, alcoholism, drug addiction, transportation, low edu. Level, literacy, decrease access to med. care, shelter, rehab)? @ -No Was there de-escalation of care discussed even if they declined (Discuss DNR or withdrawal of care, Hospice)? DNR status @ -No What co-morbidities impacted this encounter? (DM, HTN, Smoking, COPD, CAD, Cancer, CVA, ARF, Chemo, Hep., AIDS, mental health diagnosis, sleep apnea, morb id obesity)? @ -None Was patient admitted / discharged? Hospital course, mention meds given and route, prescriptions, significant lab abnormalities, going to OR and other pertinent info. @ -Patient presents with back pain. Is been ongoing for 1 week. Appears to be musculoskeletal on exam. Did recommend CT imaging as x-rays revealed nothing obvious. They were in agreement this plan. Patient will be administered Flexeril as well as a lidocaine patch and Tylenol for pain control. Imaging shows compression fractures of T3 and T7 of unknown age. After reevaluations, patient is feeling improved. Discussed that the pain could be secondary to compression fractures or possible muscle sprain or strain or spasm. I did recommend discharge on muscle relaxer as well as lidocaine patches. They were in agreement this plan. Recommended follow-up with PCP. They expressed understanding were in agreement this plan. I will provide the patient with a prescription for lidocaine patch, Flexeril. I instructed the patient to follow up with their PCP in the next 1-3 days.. I explained that the patient should return to the emergency department if they experience any worsening symptoms. Strict return precautions were discussed with the patient. The patient expressed understanding of these instructions. I answered all questions that the patient had. The patient was discharged home in good condition with their prescriptions and follow up information. Undiagnosed new problem with uncertain prognosis? @ -No Drug Therapy requiring intensive monitoring for toxicity (Heparin, Nitro, Insulin, Cardizem)? @ -No Were any procedures done? @ -No Diagnosis/symptom? @ -Thoracic compression fracture, back spasm Acute, or Chronic, or Acute on Chronic? @ -Acute Uncomplicated (without systemic symptoms) or Complicated (systemic symptoms)? @ -Uncomplicated Side effects of treatment? @ -No Exacerbation, Progression, or Severe Exacerbation? @ -No Poses a threat to life or bodily function? How? (Chest pain, [place], [place], pneumonia, PE, COPD, DKA, ARF, appy, cholecystitis, CVA, Diverticulitis, Homicidal, Suicidal, threat to staff... and all critical care pts) @ -No Disposition Clinical Impression: Back spasm, Thoracic compression fracture Disposition: HOME SELF-CARE Condition: Fair Instructions (If sedation given, give patient instructions): Vertebral Compression Fracture (ED), Muscle Spasm (ED), Back Pain (ED) Prescriptions: Cyclobenzaprine [Flexeril] 5 mg PO TID PRN 7 Days #21 tablet PRN Reason: Pain Lidocaine 5% Patch [Lidoderm 5% Patch] 1 patch TOPICAL DAILY PRN 14 Days #14 patch PRN Reason: Muscle Spasm Is patient prescribed a controlled substance at d/c from ED?: No Referrals: Gerardo Kwong DO [Primary Care Provider] - 1-2 days Time of Disposition: 18:30
[2024-04-21 19:08] VITALS: BP 148/84; PULSE 87; TEMP 98.1
== END 2024-04-21 19:08 | disposition home or self-care (01) ==
LOC: EC 14:50
DX: S22.000A Wedge compression fracture of unspecified thoracic vertebra, initial encounter for closed fracture (principal); R25.2 Cramp and spasm; F17.200 Nicotine dependence, unspecified, uncomplicated; X58.XXXA Exposure to other specified factors, initial encounter
CPT/HCPCS: 71250; 72128; 99284

== ENCOUNTER 2024-07-09 11:41 | Emergency (ER) | payer MEDICARE, BC ==
--- NOTE | 2024-07-09 12:40 | ED ---
General Adult HPI - General Chief complaint: Recheck/Abnormal Lab/Rx Stated complaint: abn labs Time Seen by Provider: 07/09/24 12:10 Source: patient, family, RN notes reviewed, old records reviewed Mode of arrival: wheelchair Limitations: no limitations - History of Present Illness Initial comments: Patient is an 84-year-old female with past medical history remarkable for atrial fibrillation on Eliquis, hypertension, hyperlipidemia, thyroid disease, anemia. Sent to the emergency department over concern for worsening anemia. Patient has been feeling weak for weeks, 3 to 4 weeks with nausea and vomiting ongoing for longer than that. Time as well. No blood in her vomit. Emesis is almost on a daily basis and is usually what she just ate or clear. States she is still having bowel movements and they are light brown. No dark tarry stool. No bright red blood per rectum. No bleeding from the urine. No vaginal discharge. No other acute complaints at this time other than this weakness and feeling cold. Once again, the symptoms have been ongoing for weeks. She does have a history of anemia and saw her PCP on Wednesday Dr. Kwong who recommended blood work and stopped her Eliquis on Wednesday. It is currently Wednesday. Was notified today that her hemoglobin was low and was sent here for further evaluation. She has been off her blood thinners for 2 days. - Related Data Home Medications Medication Instructions Recorded Confirmed Pravastatin Sodium [Pravachol] 10 mg PO HS 06/08/20 07/09/24 Levothyroxine Sodium 100 mcg PO DAILY 12/28/22 07/09/24 Acetaminophen Tab [Tylenol] 325 - 650 mg PO Q6H PRN 07/09/24 07/09/24 Apixaban [Eliquis] 5 mg PO BID 07/09/24 07/09/24 Ondansetron Odt [Zofran Odt] 4 mg PO Q6H PRN 07/09/24 07/09/24 methylPREDNISolone [Medrol Dose See Taper PO DIRECTED 07/09/24 07/09/24 Pack] Previous Rx's Medication Instructions Recorded Famotidine [Pepcid] 20 mg PO BID #60 tablet 12/29/22 Furosemide [Lasix] 40 mg PO DAILY #30 tab 01/26/23 Metoprolol Succinate [Toprol XL] 50 mg PO DAILY #90 tab 05/02/23 Allergies Allergy/AdvReac Type Severity Reaction Status Date / Time No Known Allergies Allergy Verified 07/09/24 15:31 Review of Systems ROS Statement: Those systems with pertinent positive or pertinent negative responses have been documented in the HPI. Review of Systems: CONST: Denies fever EYES: Denies blurry vision ENT: Denies nasal congestion C/V: Denies Chest pain RESP: Denies shortness of breath GI: Denies abdominal pain : Denies dysuria SKIN: Denies rash. MSK: Denies joint pain. NEURO: Denies headache ROS Other: All systems not noted in ROS Statement are negative. Past Medical History Past Medical History: Atrial Fibrillation, Heart Failure, Hyperlipidemia, Hypertension, Thyroid Disorder Additional Past Medical History / Comment(s): Vertigo, positive cologard History of Any Multi-Drug Resistant Organisms: None Reported Past Surgical History: Appendectomy, Section, Cholecystectomy Additional Past Surgical History / Comment(s): breast biopsy in 1986 pt stated "it turned out to be an absess." Past Anesthesia/Blood Transfusion Reactions: No Reported Reaction Past Psychological History: No Psychological Hx Reported Smoking Status: Current every day smoker Past Alcohol Use History: None Reported Past Drug Use History: None Reported - Past Family History Mother Family Medical History: Cancer Additional Family Medical History / Comment(s): Gallbladder cancer Father Family Medical History: Myocardial Infarction ([place]) General Exam - General Exam Comments Initial Comments: General: Appears in no acute distress. HEAD: Normal with no signs of head trauma. EYES: PERRLA, EOMI, conjunctiva normal, no discharge. ENT: Hard of hearing, normal oropharynx. RESPIRATORY: Clear breath sounds bilaterally. No wheezes, rales, or rhonchi. C/V: Regular rate and rhythm. S1 and S2 auscultated, no edema, peripheral pulses 2+ and intact throughout ABD: Abd is soft, nontender, nondistended. Rectal exam performed in the presence of a female staff member negative for any obvious gross blood. No m francie. No dark tarry stool. Light brown stool on gross exam. Occult sent. EXT: Normal range of motion, no obvious deformity SKIN: No rashes or lesions observed on exposed skin. NEURO: Alert and oriented x 4. Limitations: no limitations Course Vital Signs 07/09/24 07/09/24 07/09/24 11:49 14:50 15:04 Temperature 97.4 F L 97.3 F L 97.9 F Pulse Rate 66 62 72 Respiratory 18 17 16 Rate Blood Pressure 104/55 109/58 108/69 O2 Sat by Pulse 92 L Oximetry 07/09/24 07/09/24 15:24 17:36 Temperature 97.4 F L 98.1 F Pulse Rate 66 72 Respiratory 15 15 Rate Blood Pressure 103/62 105/66 O2 Sat by Pulse 97 97 Oximetry Medical Decision Making - Medical Decision Making Was pt. sent in by a medical professional or institution (, PA, [employer] HRMS DEVELOPER, urgent care, hospital, or assisted...) When possible be specific @ -No Did you speak to anyone other than the patient for history (EMS, parent, family, police, friend...)? What history was obtained from this source @ -Spoke with patient's family members and daughter who are present who help with patient's history as patient is legally blind. She is able to report on patient's stool, emesis, as well as symptoms and for how long they have been ongoing. Did you review nursing and triage notes (agree or disagree)? Why? @ -I reviewed and agree with nursing and triage notes Were old charts reviewed (outside hosp., previous admission, EMS record, old EKG, old radiological studies, urgent care reports/EKG's, assisted records)? Report findings @ -Reviewed the laboratory results from 07/07/2024 which showed patient was anemic at that time with a hemoglobin of 6.1. Differential Diagnosis (chest pain, altered mental status, abdominal pain women, abdominal pain men, vaginal bleeding, weakness, fever, dyspnea, syncope, headache, dizziness, GI bleed, back pain, seizure, CVA, palpatations, mental health, musculoskeletal)? @ -Differential GI Bleed: Esophageal varices, aortoenteric fistula, Christie-Knutson, gastritis, peptic ulcer disease, diverticulosis, inflammatory bowel disease, hemorrhoids, fissure, colitis, malignancy, Meckel's diverticulum, this is not meant to be an all- inclusive list. EKG interpreted by me (3pts min.). @ -As above X-rays interpreted by me (1pt min.). @ -None done CT interpreted by me (1pt min.). @ -Considered CTA for GI bleed protocol however patient's renal function is poor at baseline. I did discuss with family regarding this, and due to patient's age, as well as no obvious active GI bleed and the chronicity of symptoms we decided to defer at this time. U/S interpreted by me (1pt. min.). @ -None done What testing was considered but not performed or refused? (CT, X-rays, U/S, labs)? Why? @ -None What meds were considered but not given or refused? Why? @ -None Did you discuss the management of the patient with other professionals (professionals i.e. , PA, [employer] HRMS DEVELOPER, lab, RT, psych nurse, social media intern, recording studio internship, teacher, staff command and control officer, high risk case manager)? Give summary @ -No Was smoking cessation discussed for >3mins.? @ -No Was critical care preformed (if so, how long)? @ -No Were there social determinants of health that impacted care today? How? (Homelessness, low income, unemployed, alcoholism, drug addiction, transportation, low edu. Level, literacy, decrease access to med. care, mcc, re hab)? @ -No Was there de-escalation of care discussed even if they declined (Discuss DNR or withdrawal of care, Hospice)? DNR status @ -No What co-morbidities impacted this encounter? (DM, HTN, Smoking, COPD, CAD, Cancer, CVA, ARF, Chemo, Hep., AIDS, mental health diagnosis, sleep apnea, morbid obesity)? @ -None Was patient admitted / discharged? Hospital course, mention meds given and route, prescriptions, significant lab abnormalities, going to OR and other pertinent info. @ -Based on patient's presentation and physical exam, presents to the emergency department for anemia with no obvious source of bleeding on chronic blood thinners. Also complaining of chronic weakness as well as nausea and vomiting for multiple weeks. Was sent in by her PCP. Vital signs are within acceptable limits. We will obtain laboratory studies, screening EKG. Occult blood sent as rectal exam was unremarkable on gross rectal exam showed light brown stool with no evidence of bleeding. She will be symptomatically treated with IV Zofran and Protonix. We will discuss CT imaging following laboratory results. Family and patient were in agreement this plan. Patient has been off Eliquis for 2 days. Patient's laboratory studies are remarkable for hemoglobin of 7.1, which is microcytic. Patient has a leukocytosis of 14.9 which is likely reactive. Patient has a MARIFER on CKD. Occult blood is positive despite the gross blood in rectal exam being unremarkable overall. Viral swabs are negative. I discussed at length with family as well as patient. I did offer CT angiogram of the abdomen GI bleed protocol however due to the patient's renal function this would require admission. We discussed options of admission versus discharge. They would prefer to go home as the patient has no active GI h emorrhage and stool exam is unremarkable. She is feeling fine otherwise. Her symptoms seem likely chronic after discussion with family members and patient. I did discuss that if admitted, there is a good chance they would prefer that patient be transferred as we do not have GI services which they do not want. Family and patient also agree that patient would not want any significant surgery done. Uncertain if they would want any scoping such as colonoscopy or EGD performed. Overall they would prefer if the patient goes home which I believe is reasonable at this time as her hemoglobin is actually improved from Wednesday. We will transfuse her 1 unit of blood. I did attempt to contact the patient's PCP at the request however he did not call back as he is off as it is the weekend. Patient was transfused 2 unit of blood. They would still like to go home. I believe this is reasonable. I instructed patient not to take her Eliquis until speak with Dr. Kwong. Strict return precautions discussed. They were in agreement this plan. I instructed the patient to follow up with their PCP in the next 1-3 days. I explained that the patient should return to the emergency department if they experience any worsening symptoms. Strict return precautions were discussed with the patient. The patient expressed understanding of these instructions. I answered all questions that the patient had. The patient was discharged home in fair condition with their prescriptions and follow up information. Undiagnosed new problem with uncertain prognosis? @ -No Drug Therapy requiring intensive monitoring for toxicity (Heparin, Nitro, Insulin, Cardizem)? @ -No Were any procedures done? @ -No Diagnosis/symptom? @ -Symptomatic anemia of unknown etiology Acute, or Chronic, or Acute on Chronic? @ -Acute on chronic Uncomplicated (without systemic symptoms) or Complicated (systemic symptoms)? @ -Complicated Side effects of treatment? @ -None Exacerbation, Progression, or Severe Exacerbation] @ -No Poses a threat to life or bodily function? @ -Unlikely at this time - Lab Data Result diagrams: 07/09/24 12:20 07/09/24 12:20 Lab Results 07/09/24 07/09/24 07/09/24 Range/Units 12:20 12:20 12:20 WBC 14.9 H (3.8-10.6) k/uL RBC 3.37 L (3.80-5.40) m/uL Hgb 7.1 L (11.4-16.0) gm/dL Hct 26.0 L (34.0-46.0) % MCV 77.2 L (80.0-100.0) fL MCH 21.2 L (25.0-35.0) pg MCHC 27.4 L (31.0-37.0) g/dL RDW 18.7 H (11.5-15.5) % Plt Count 287 (150-450) k/uL MPV 8.4 Neutrophils % (Manual) 88 % Lymphocytes % (Manual) 5 % Monocytes % (Manual) 7 % Neutrophils # (Manual) 13.11 H (1.3-7.7) k/uL Lymphocytes # (Manual) 0.75 L (1.0-4.8) k/uL Monocytes # (Manual) 1.04 H (0-1.0) k/uL Nucleated RBCs 2 H (0-0) /100 WBC Manual Slide Review Performed Polychromasia Present Hypochromasia Marked Poikilocytosis Marked Anisocytosis Slight Microcytosis Slight Target Cells Present PT 12.4 (10.0-12.5) sec INR 1.2 H (<1.2) APTT 23.4 (22.0-30.0) sec Sodium 140 (137-145) mmol/L Potassium 3.5 (3.5-5.1) mmol/L Chloride 104 (98-107) mmol/L Carbon Dioxide 25 (22-30) mmol/L Anion Gap 11 mmol/L BUN 47 H (7-17) mg/dL Creatinine 1.72 H (0.52-1.04) mg/dL Est GFR (CKD-EPI)AfAm 31 (>60 ml/min/1.73 sqM) Est GFR (CKD-EPI)NonAf 27 (>60 ml/min/1.73 sqM) Glucose 123 H (74-99) mg/dL Calcium 9.1 (8.4-10.2) mg/dL Magnesium 2.4 H (1.6-2.3) mg/dL Total Bilirubin 0.8 (0.2-1.3) mg/dL AST 20 (14-36) U/L ALT 12 (4-34) U/L Alkaline Phosphatase 73 (38-126) U/L Total Protein 7.4 (6.3-8.2) g/dL Albumin 4.0 (3.5-5.0) g/dL Stool Occult Blood (Negative) Influenza Type A (PCR) (Not Detectd) Influenza Type B (PCR) (Not Detectd) RSV (PCR) (Not Detectd) SARS-CoV-2 (PCR) (Not Detectd) Blood Type Blood Type Recheck Bld Type Recheck Status Antibody Screen Crossmatch Spec Expiration Date 07/09/24 07/09/24 07/09/24 Range/Units 12:34 12:34 12:35 WBC (3.8-10.6) k/uL RBC (3.80-5.40) m/uL Hgb (11.4-16.0) gm/dL Hct (34.0-46.0) % MCV (80.0-100.0) fL MCH (25.0-35.0) pg MCHC (31.0-37.0) g/dL RDW (11.5-15.5) % Plt Count (150-450) k/uL MPV Neutrophils % (Manual) % Lymphocytes % (Manual) % Monocytes % (Manual) % Neutrophils # (Manual) (1.3-7.7) k/uL Lymphocytes # (Manual) (1.0-4.8) k/uL Monocytes # (Manual) (0-1.0) k/uL Nucleated RBCs (0-0) /100 WBC Manual Slide Review Polychromasia Hypochromasia Poikilocytosis Anisocytosis Microcytosis Target Cells PT (10.0-12.5) sec INR (<1.2) APTT (22.0-30.0) sec Sodium (137-145) mmol/L Potassium (3.5-5.1) mmol/L Chloride (98-107) mmol/L Carbon Dioxide (22-30) mmol/L Anion Gap mmol/L BUN (7-17) mg/dL Creatinine (0.52-1.04) mg/dL Est GFR (CKD-EPI)AfAm (>60 ml/min/1.73 sqM) Est GFR (CKD-EPI)NonAf (>60 ml/min/1.73 sqM) Glucose (74-99) mg/dL Calcium (8.4-10.2) mg/dL Magnesium (1.6-2.3) mg/dL Total Bilirubin (0.2-1.3) mg/dL AST (14-36) U/L ALT (4-34) U/L Alkaline Phosphatase (38-126) U/L Total Protein (6.3-8.2) g/dL Albumin (3.5-5.0) g/dL Stool Occult Blood Positive H (Negative) Influenza Type A (PCR) Not Detected (Not Detectd) Influenza Type B (PCR) Not Detected (Not Detectd) RSV (PCR) Not Detected (Not Detectd) SARS-CoV-2 (PCR) Not Detected (Not Detectd) Blood Type A Negative Blood Type Recheck A Neg Bld Type Recheck Status No Antibody Screen NEGATIVE Crossmatch See Detail Spec Expiration Date 07/12/20242334 - EKG Data -: EKG Interpreted by Me EKG Comments: 12-lead Electrocardiogram Interpretation Note EKG was reviewed and interpreted by myself. 12-lead ECG performed at 1303 is interpreted by me as revealing atrial fibrillation at a rate of 73 beats per minute. Dougherty is normal. QRS duration is 77 ms, QTc is 359 ms.. There were no ST or T wave abnormalities to suggest myocardial ischemia or injury. R wave progression across the precordium was satisfactory. By my interpretation this EKG is non-diagnostic for acute ischemia. Disposition Clinical Impression: Symptomatic anemia Disposition: HOME SELF-CARE Condition: Fair Instructions (If sedation given, give patient instructions): Anemia (ED) Additional Instructions: Continue to hold your blood thinner Eliquis. Follow-up with Dr. Kwong in the next 24 to 48 hours. Is patient prescribed a controlled substance at d/c from ED?: No Referrals: Gerardo Kwong DO [Primary Care Provider] - 1-2 days Time of Disposition: 17:37
[2024-07-09 12:51] LABS: INR 1.2 (<1.2); Partial Thromboplastin Time 23.4 sec (22.0-30.0); Prothrombin Time 12.4 sec (10.0-12.5)
[2024-07-09] MEDS: PANTOPRAZOLE 40 MG/10 ML VIAL IVP STA (12:53)
[2024-07-09] MEDS: ONDANSETRON 4 MG/2 ML VIAL IVP STA (12:53)
[2024-07-09 12:54] LABS: Anisocytosis Slight; HGB 7.1 gm/dL (11.4-16.0); Hypochromasia Marked; MCH 21.2 pg (25.0-35.0); MCHC 27.4 g/dL (31.0-37.0); MCV 77.2 fL (80.0-100.0); Mean Platelet Volume 8.4; Microcytosis Slight; Platelet Count 287 k/uL (150-450); Poikilocytosis Marked; RBC 3.37 m/uL (3.80-5.40); RDW 18.7 % (11.5-15.5)
[2024-07-09 13:01] LABS: ALT 12 U/L (4-34); AST 20 U/L (14-36); African American GFR (CKD) 31 (>60 ml/min/1.73 sqM); Alkaline Phosphatase 73 U/L (38-126); Anion Gap 11 mmol/L; Blood Urea Nitrogen 47 mg/dL (7-17); Calcium 9.1 mg/dL (8.4-10.2); Carbon Dioxide 25 mmol/L (22-30); Chloride 104 mmol/L (98-107); Glucose 123 mg/dL (74-99); Magnesium 2.4 mg/dL (1.6-2.3); Non-African American GFR(CKD) 27 (>60 ml/min/1.73 sqM); Potassium 3.5 mmol/L (3.5-5.1); Sodium 140 mmol/L (137-145); Total Bilirubin 0.8 mg/dL (0.2-1.3); Total Protein 7.4 g/dL (6.3-8.2)
[2024-07-09 13:33] LABS: Neutrophils % (M) 88 %
[2024-07-09 13:34] LABS: Polychromasia Present; Target Cells Present
[2024-07-09 13:36] LABS: Nucleated Red Blood Cells 2 /100 WBC (0-0)
[2024-07-09 13:37] LABS: Lymphocytes # (M) 0.75 k/uL (1.0-4.8); Monocytes # (M) 1.04 k/uL (0-1.0); Neutrophils # (M) 13.11 k/uL (1.3-7.7); Total Cells Counted 200; WBC 14.9 k/uL (3.8-10.6)
[2024-07-09 17:22] VITALS: RESP 15
[2024-07-09 17:36] VITALS: BP 105/66; PULSE 72; TEMP 98.1
== END 2024-07-09 17:51 | disposition home or self-care (01) ==
LOC: EC 11:41
CPT/HCPCS: 36415; 36430; 80053; 82272; 83735; 85025; 85610; 85730; 86850; 86900; 86901; 86920; 87636; 93005; 96374; 96375; 99284

== ENCOUNTER 2024-07-17 09:12 | Day surgery (SDC) | payer MEDICARE, BC ==
[2024-07-17 09:42] VITALS: TEMP 97.9
[2024-07-17] MEDS: IV FLUID CONTINUATION 1,000 ML IV ONE (09:42)
[2024-07-17] MEDS: LACTATED RINGERS 1,000 ML IV SCH (09:42)
[2024-07-17] MEDS: LIDOCAINE 1% (10MG/ML) FOR IV START INTRADERMA PRN (09:42)
[2024-07-17] MEDS ORDERED: PROPOFOL 10 MG/ML 20 ML VIAL IV ONE (10:03)
[2024-07-17] MEDS ORDERED: LIDOCAINE 1% INJ 10MG/ML (20 ML MDV) ONE (10:03)
[2024-07-17] MEDS ORDERED: PHENYLEPHRINE-0.9% NACL SYG 1,000 MCG/10 ML SYRINGE ONE (10:03)
[2024-07-17 10:04] LABS: Glucose,Whole Blood 105 mg/dL (70-110)
--- NOTE | 2024-07-17 10:18 | P.PCN ---
Date of Procedure: 07/17/24 Preoperative Diagnosis: Melena, black stool Postoperative Diagnosis: Gastritis Duodenitis Procedure(s) Performed: EGD with biopsy Anesthesia: GIANNI Surgeon: Delta Damon Pathology: other (Biopsies of GE junction, antrum, duodenum) Condition: stable Disposition: same day Indications for Procedure: 84-year-old female presents for EGD. She has had recent episodes of black stool. Secondary to this, plan is for upper endoscopy for further workup. Risk on benefits and alternatives were provided to the patient. All questions answered. Operative Findings: Mild gastritis Mild duodenitis Description of Procedure: Patient was brought to the endoscopy suite and placed in left lateral decubitus position and adequate sedation was achieved using conscious sedation. A bite block was placed and an endoscope was placed in the oropharynx and advanced und er endoscopic visualization. The endoscope was advanced through the esophagus into the stomach, through the gastric antrum and in through the pylorus. The third portion of the duodenum was visualized. The endoscope was then slowly withdrawn. The first portion of the duodenum was noted to have mild inflammatory changes. Biopsies were taken. The antrum was noted to have mild inflammatory changes. Biopsies were taken. The gastric body distended normally and the gastric folds appeared normal and flattened with insufflation. A retroflexed view of the fundus and GE junction revealed no significant hiatal hernia. The esophagus appeared endoscopically normal. Biopsies were taken of the GE junction. Excess air was removed and the scope was withdrawn and the procedure completed. The patient was then sent to postanesthesia care unit in stable condition.
[2024-07-17 10:43] VITALS: BP 97/66; PULSE 84; RESP 20
== END 2024-07-17 11:22 | disposition home or self-care (01) ==
LOC: ORWHC2ENDO 09:12
PROVIDERS: ATTEND Surgery
CPT/HCPCS: 43239; 88305; 88313

== ENCOUNTER 2024-07-30 14:04 | Emergency (ER) | payer MEDICARE, BC ==
--- NOTE | 2024-07-30 15:25 | ED ---
Extremity Problem HPI - General Chief complaint: Extremity Problem,Nontraumatic Stated complaint: SOB,Facial swelling Time Seen by Provider: 07/30/24 14:24 Source: patient, RN notes reviewed Mode of arrival: ambulatory Limitations: no limitations - History of Present Illness Initial comments: 84-year-old female presents emergency department with family for concerns of swelling. Daughter stating that she has leg swelling, some shortness of breath. Patient states that she does not have any complaints and denies having chest pain shortness of breath dizziness. Patient did receive blood transfusion last week for hemoglobin 6.8 repeat was 8. Patient did have upper and lower scopes without acute findings. They are unsure where she is anemic. Patient states she does not want to be here but is brought here with family for these concerns. - Related Data Home Medications Medication Instructions Recorded Confirmed Pravastatin Sodium [Pravachol] 10 mg PO HS 06/08/20 07/14/24 Levothyroxine Sodium 100 mcg PO DAILY 12/28/22 07/14/24 Apixaban [Eliquis] 5 mg PO BID 07/09/24 07/14/24 Ondansetron Odt [Zofran ODT] 4 mg PO Q6H PRN 07/09/24 07/14/24 Famotidine [Pepcid] 20 mg PO BID PRN 07/14/24 07/14/24 Previous Rx's Medication Instructions Recorded Furosemide [Lasix] 40 mg PO DAILY #30 tab 01/26/23 Metoprolol Succinate [Toprol XL] 50 mg PO DAILY #90 tab 01/26/23 Allergies Allergy/AdvReac Type Severity Reaction Status Date / Time No Known Allergies Allergy Verified 07/30/24 14:18 Review of Systems ROS Statement: Those systems with pertinent positive or pertinent negative responses have been documented in the HPI. ROS Other: All systems not noted in ROS Statement are negative. Past Medical History Past Medical History: Atrial Fibrillation, Heart Failure, CVA/TIA, Eye Disorder, Hyperlipidemia, Hypertension, Osteoarthritis (OA), Renal Disease, Thyroid Disorder Additional Past Medical History / Comment(s): frequent Vertigo, macular degeneration, anemia, recent blood transfusion on Sun., on & off N/V for 3 weeks, emphysema, chronic kidney disease, TIA-s-no deficits per daughter, bout of CHF about a year ago but hasn't had any recent problems per daughter, osteoporosis, currently has 3 compression fx.'s in back History of Any Multi-Drug Resistant Organisms: None Reported Past Surgical History: Appendectomy, Section, Cholecystectomy Additional Past Surgical History / Comment(s): breast biopsy in 1986 pt stated "it turned out to be an absess." C/S x5 Past Anesthesia/Blood Transfusion Reactions: No Reported Reaction Additional Past Anesthesia/Blood Transfusion Reaction / Comment(s): no transfusion reactions Past Psychological History: No Psychological Hx Reported Smoking Status: Current every day smoker - Past Family History Mother Family Medical History: Cancer Additional Family Medical History / Comment(s): Gallbladder cancer Father Family Medical History: Myocardial Infarction (AR) General Exam Limitations: no limitations General appearance: alert, in no apparent distress Head exam: Present: atraumatic, normocephalic, normal inspection Eye exam: Present: normal appearance, PERRL, EOMI. Absent: scleral icterus, conjunctival injection, periorbital swelling ENT exam: Present: normal exam, normal oropharynx, mucous membranes moist Neck exam: Present: normal inspection, full ROM. Absent: tenderness, menin gismus, lymphadenopathy Respiratory exam: Present: normal lung sounds bilaterally. Absent: respiratory distress, wheezes, rales, rhonchi, stridor Cardiovascular Exam: Present: regular rate, normal rhythm, normal heart sounds. Absent: systolic murmur, diastolic murmur, rubs, gallop, clicks Neurological exam: Present: alert, oriented X3, CN II-XII intact Skin exam: Present: warm, dry, intact, normal color. Absent: rash Course Vital Signs 07/30/24 14:14 Temperature 97.5 F L Pulse Rate 72 Respiratory 16 Rate Blood Pressure 112/61 O2 Sat by Pulse 100 Oximetry Medical Decision Making - Medical Decision Making Was pt. sent in by a medical professional or institution (, PA, BLOWER ROOM ATTENDANT, urgent care, hospital, or penitentiary...) When possible be specific @ -No Did you speak to anyone other than the patient for history (EMS, parent, family, police, friend...)? What history was obtained from this source @ -No Did you review nursing and triage notes (agree or disagree)? Why? @ -I reviewed and agree with nursing and triage notes Were old charts reviewed (outside hosp., previous admission, EMS record, old EKG, old radiological studies, urgent care reports/EKG's, penitentiary records)? Report findings @ -No old charts were reviewed Differential Diagnosis (chest pain, altered mental status, abdominal pain women, abdominal pain men, vaginal bleeding, weakness, fever, dyspnea, syncope, headache, dizziness, GI bleed, back pain, seizure, CVA, palpatations, mental health, musculoskeletal)? @ -Leg edema, CHF, transfusion reaction, renal failure EKG interpreted by me (3pts min.). @ -None X-rays interpreted by me (1pt min.). @ -Chest x-ray shows minimal pleural effusion CT interpreted by me (1pt min.). @ -None done U/S interpreted by me (1pt. min.). @ -None done What testing was considered but not performed or refused? (CT, X-rays, U/S, labs)? Why? @ -None What meds were considered but not given or refused? Why? @ -None Did you discuss the management of the patient with other professionals (professionals i.e. , PA, BLOWER ROOM ATTENDANT, lab, RT, psych nurse, delinquency prevention social worker, sql server architect, teacher, building drafting officer, family preservation caseworker)? Give summary @ -No Was smoking cessation discussed for >3mins.? @ -No Was critical care preformed (if so, how long)? @ -No Were there social determinants of health that impacted care today? How? (Homelessness, low income, unemployed, alcoholism, drug addiction, transportation, low edu. Level, literacy, decrease access to med. care, group home, rehab)? @ -No Was there de-escalation of care discussed even if they declined (Discuss DNR or withdrawal of care, Hospice)? DNR status @ -No What co-morbidities impacted this encounter? (DM, HTN, Smoking, COPD, CAD, Canc er, CVA, ARF, Chemo, Hep., AIDS, mental health diagnosis, sleep apnea, morbid obesity)? @ -CHF, anemia Was patient admitted / discharged? Hospital course, mention meds given and route, prescriptions, significant lab abnormalities, going to OR and other pertinent info. @ -Patient presented with family which family had concerns of a cough and possible leg edema. Patient has no significant leg edema only some swelling in her foot. Patient does not want to be here denies being dyspneic or having any chest pain. Patient's x-ray shows possible small pleural effusion. Patient was given a dose of Lasix. Patient will be discharged in stable condition return parameters abdirahman. Undiagnosed new problem with uncertain prognosis? @ -No Drug Therapy requiring intensive monitoring for toxicity (Heparin, Nitro, Insulin, Cardizem)? @ -No Were any procedures done? @ -No Diagnosis/symptom? @ -Leg edema Acute, or Chronic, or Acute on Chronic? @ -Acute Uncomplicated (without systemic symptoms) or Complicated (systemic symptoms)? @ -Uncomplicated Side effects of treatment? @ -No Exacerbation, Progression, or Severe Exacerbation? @ -No Poses a threat to life or bodily function? How? (Chest pain, USA, AR, pneumonia, PE, COPD, DKA, ARF, appy, cholecystitis, CVA, Diverticulitis, Homicidal, Suicidal, threat to staff... and all critical care pts) @ -No - Lab Data Result diagrams: 07/30/24 15:45 07/30/24 15:45 Lab Results 07/30/24 07/30/24 Range/Units 15:45 15:45 WBC 9.2 (3.8-10.6) k/uL RBC 3.80 (3.80-5.40) m/uL Hgb 8.8 L (11.4-16.0) gm/dL Hct 31.0 L (34.0-46.0) % MCV 81.5 (80.0-100.0) fL MCH 23.2 L (25.0-35.0) pg MCHC 28.5 L (31.0-37.0) g/dL RDW 20.5 H (11.5-15.5) % Plt Count 223 (150-450) k/uL MPV 7.6 Neutrophils % 72 % Lymphocytes % 18 % Monocytes % 7 % Eosinophils % 1 % Basophils % 1 % Neutrophils # 6.6 (1.3-7.7) k/uL Lymphocytes # 1.7 (1.0-4.8) k/uL Monocytes # 0.6 (0-1.0) k/uL Eosinophils # 0.1 (0-0.7) k/uL Basophils # 0.1 (0-0.2) k/uL Hypochromasia Marked Poikilocytosis Moderate Anisocytosis Moderate Microcytosis Slight Sodium 142 (137-145) mmol/L Potassium 3.3 L (3.5-5.1) mmol/L Chloride 106 (98-107) mmol/L Carbon Dioxide 30 (22-30) mmol/L Anion Gap 6 mmol/L BUN 31 H (7-17) mg/dL Creatinine 1.61 H (0.52-1.04) mg/dL Est GFR (CKD-EPI)AfAm 33 (>60 ml/min/1.73 sqM) Est GFR (CKD-EPI)NonAf 29 (>60 ml/min/1.73 sqM) Glucose 130 H (74-99) mg/dL Calcium 8.5 (8.4-10.2) mg/dL NT-Pro-B Natriuret Pep 52619 pg/mL Disposition Clinical Impression: Leg edema Disposition: HOME SELF-CARE Condition: Stable Instructions (If sedation given, give patient instructions): Leg Edema (ED) Additional Instructions: Please return to the Emergency Department if symptoms worsen or any other concerns. Is patient prescribed a controlled substance at d/c from ED?: No Referrals: Gerardo Kwong DO [Primary Care Provider] - 1-2 days Time of Disposition: 16:27
--- NOTE | 2024-07-30 15:39 | XR ---
EXAMINATION TYPE: XR chest 2V DATE OF EXAM: 07/30/2024 COMPARISON: 03/08/2023 INDICATION: Short of breath TECHNIQUE: Frontal and lateral views of the chest are obtained. FINDINGS: The heart size is normal. The pulmonary vasculature is normal. Small right and left pleural effusions are present. Some adjacent compressive atelectasis likely pres ent. Compression deformity mid thoracic spine, may have mild progression from comparison CT 4. No posterior wall displacement is identified. IMPRESSION: 1. Mild bibasilar infiltrates, correlate for atelectasis. 2. Small bilateral pleural effusions. 3. Compression deformity midthoracic spine may be slightly progressive from comparison March 2024 [facility], Workstation: [facility], 07/30/2024 3:36 PM
[2024-07-30 16:02] LABS: Anisocytosis Moderate; Basophils # (A) 0.1 k/uL (0-0.2); Basophils % (A) 1 %; Eosinophils # (A) 0.1 k/uL (0-0.7); Eosinophils % (A) 1 %; HGB 8.8 gm/dL (11.4-16.0); Hypochromasia Marked; Lymphocytes # (A) 1.7 k/uL (1.0-4.8); Lymphocytes % (A) 18 %; MCH 23.2 pg (25.0-35.0); MCHC 28.5 g/dL (31.0-37.0); MCV 81.5 fL (80.0-100.0); Mean Platelet Volume 7.6; Microcytosis Slight; Monocytes # (A) 0.6 k/uL (0-1.0); Monocytes % (A) 7 %; Neutrophils # (A) 6.6 k/uL (1.3-7.7); Neutrophils % (A) 72 %; Platelet Count 223 k/uL (150-450); Poikilocytosis Moderate; RDW 20.5 % (11.5-15.5); WBC 9.2 k/uL (3.8-10.6)
[2024-07-30 16:15] LABS: African American GFR (CKD) 33 (>60 ml/min/1.73 sqM); Anion Gap 6 mmol/L; Blood Urea Nitrogen 31 mg/dL (7-17); Calcium 8.5 mg/dL (8.4-10.2); Carbon Dioxide 30 mmol/L (22-30); Chloride 106 mmol/L (98-107); Glucose 130 mg/dL (74-99); Non-African American GFR(CKD) 29 (>60 ml/min/1.73 sqM); Potassium 3.3 mmol/L (3.5-5.1); Sodium 142 mmol/L (137-145)
[2024-07-30 16:22] LABS: NT-Pro-B-Type Natriuretic Pept 12200 pg/mL
[2024-07-30 16:41] VITALS: RESP 18; TEMP 98.1
[2024-07-30] MEDS: FUROSEMIDE 10 MG/ML 4 ML VIAL IV STA (16:41)
[2024-07-30 17:55] VITALS: BP 117/76; PULSE 84
== END 2024-07-30 17:53 | disposition home or self-care (01) ==
LOC: EC 14:04
DX: R60.0 Localized edema (principal); F17.200 Nicotine dependence, unspecified, uncomplicated
CPT/HCPCS: 36415; 83880; 80048; 85025; 71046; 99285; 96374; J1940

== ENCOUNTER 2024-09-02 13:26 | Inpatient (IN) | payer MEDICARE, BC ==
--- NOTE | 2024-09-02 14:53 | ED ---
General Adult HPI - General Chief complaint: Altered Mental Status Stated complaint: AMS Time Seen by Provider: 09/02/24 14:16 Source: patient, EMS, RN notes reviewed, old records reviewed Mode of arrival: EMS Limitations: altered mental status - History of Present Illness Initial comments: 84-year-old female presenting with confusion over the past 24 to 48 hours. History is obtained somewhat from the patient but predominantly from the family members including her daughter and . Patient's only complaint is thirst. She has no prior history of diabetes but does have initial blood sugar which is elevated. She has had poor appetite over the past 2 days. No fever. No focal numbness or weakness reported. - Related Data Home Medications Medication Instructions Recorded Confirmed Pravastatin Sodium [Pravachol] 10 mg PO HS 06/08/20 09/02/24 Apixaban [Eliquis] 5 mg PO BID-W/MEALS 07/09/24 09/02/24 Donepezil [Aricept] 10 mg PO HS 09/02/24 09/02/24 Furosemide [Lasix] 40 mg PO BID-W/MEALS 09/02/24 09/02/24 Iron (Unknown Dose) 2 tab PO DAILY 09/02/24 09/02/24 Levothyroxine Sodium [Tirosint] 100 mcg PO DAILY 09/02/24 09/02/24 Potassium Chloride ER [K-Dur 20] 20 meq PO DAILY 09/02/24 09/02/24 Vit C/E/Zn/Coppr/Lutein/Zeaxan 1 cap PO BID-W/MEALS 09/02/24 09/02/24 [Preservision Areds 2 Softgel] Previous Rx's Medication Instructions Recorded Metoprolol Succinate [Toprol XL] 50 mg PO DAILY #90 tab 01/26/23 Allergies Allergy/AdvReac Type Severity Reaction Status Date / Time No Known Allergies Allergy Verified 09/02/24 15:30 Review of Systems ROS Statement: Those systems with pertinent positive or pertinent negative responses have been documented in the HPI. ROS Other: All systems not noted in ROS Statement are negative. Past Medical History Past Medical History: Atrial Fibrillation, Heart Failure, CVA/TIA, Eye Disorder, Hyperlipidemia, Hypertension, Osteoarthritis (OA), Renal Disease, Thyroid Di sorder Additional Past Medical History / Comment(s): frequent Vertigo, macular degeneration, anemia, recent blood transfusion on Sun., on & off N/V for 3 weeks, emphysema, chronic kidney disease, TIA-s-no deficits per daughter, bout of CHF about a year ago but hasn't had any recent problems per daughter, osteoporosis, currently has 3 compression fx.'s in back History of Any Multi-Drug Resistant Organisms: None Reported Past Surgical History: Appendectomy, Section, Cholecystectomy Additional Past Surgical History / Comment(s): breast biopsy in 1986 pt stated "it turned out to be an absess." C/S x5 Past Anesthesia/Blood Transfusion Reactions: No Reported Reaction Additional Past Anesthesia/Blood Transfusion Reaction / Comment(s): no transfusion reactions Past Psychological History: No Psychological Hx Reported Smoking Status: Current every day smoker - Past Family History Mother Family Medical History: Cancer Additional Family Medical History / Comment(s): Gallbladder cancer Father Family Medical History: Myocardial Infarction (AR) General Exam General appearance: alert, in no apparent distress Head exam: Present: atraumatic, normocephalic Eye exam: Present: normal appearance, PERRL ENT exam: Present: mucous membranes dry Neck exam: Present: normal inspection. Absent: tenderness, meningismus Respiratory exam: Present: normal lung sounds bilaterally. Absent: respiratory distress Cardiovascular Exam: Present: regular rate, normal rhythm GI/Abdominal exam: Present: soft. Absent: distended, tenderness Extremities exam: Absent: pedal edema Neurological exam: Absent: oriented X3, motor sensory deficit Course Vital Signs 09/02/24 13:54 Temperature 98.1 F Pulse Rate 40 L Respiratory 18 Rate Blood Pressure 112/56 O2 Sat by Pulse 100 Oximetry Medical Decision Making - Medical Decision Making Was pt. sent in by a medical professional or institution (, PA, RECREATION THERAPY AIDE, urgent ca re, hospital, or care home...) When possible be specific @ -No Did you speak to anyone other than the patient for history (EMS, parent, family, police, friend...)? What history was obtained from this source @ -No Did you review nursing and triage notes (agree or disagree)? Why? @ -I reviewed and agree with nursing and triage notes Were old charts reviewed (outside hosp., previous admission, EMS record, old EKG, old radiological studies, urgent care reports/EKG's, care home records)? Report findings @ -No old charts were reviewed Differential Altered Mental Status: Hypoglycemia, DKA, hypercapnia, ETOH, overdose, CO poisoning, trauma, myxedema coma, HTN encephalopathy, infection, encephalitis, psychosis, intercranial hemorrhage, hepatic encephalopathy, meningitis, CVA, this is not meant to be an all-inclusive list EKG interpreted by me (3pts min.). Controlled atrial fibrillation rate of 81, QRS duration 81, QTc [address] segment elevation X-rays interpreted by me (1pt min.). @ -Chest x-ray shows large left-sided pleural effusion CT interpreted by me (1pt min.). @CT brain negative for intracranial hemorrhage or mass effect U/S interpreted by me (1pt. min.). @ -None done What testing was considered but not performed or refused? (CT, X-rays, U/S, labs)? Why? @ -None What meds were considered but not given or refused? Why? @ -None Did you discuss the management of the patient with other professionals (professionals i.e. , PA, RECREATION THERAPY AIDE, lab, RT, psych nurse, social work specialist, hanging flags decorator, teacher, food safety officer, rifle case repairer)? Give summary @ -Case discussed with Dr. Marie who will admit Was smoking cessation discussed for >3mins.? @ -No Was critical care preformed (if so, how long)? @ -No Were there social determinants of health that impacted care today? How? (Homel essness, low income, unemployed, alcoholism, drug addiction, transportation, low edu. Level, literacy, decrease access to med. care, skilled nursing, rehab)? @ -No Was there de-escalation of care discussed even if they declined (Discuss DNR or withdrawal of care, Hospice)? DNR status @ -No What co-morbidities impacted this encounter? (DM, HTN, Smoking, COPD, CAD, Cancer, CVA, ARF, Chemo, Hep., AIDS, mental health diagnosis, sleep apnea, morbid obesity)? @ -Chronic kidney disease, atrial fibrillation Was patient admitted / discharged? Hospital course, mention meds given and route, prescriptions, significant lab abnormalities, going to OR and other pertinent info. @ -84-year-old female with multiple medical problems presenting with approximately 24 hours of confusion and altered mental status. Patient received workup including CT, chest x-ray, laboratory testing. She has chronic stable lab abnormalities including anemia and chronic kidney disease. She has a minimally elevated troponin 0.054. This level will be trended. This may be elevated in the setting of CHF and chronic kidney disease. Her urinalysis is negative. CT brain shows no signs of intracranial hemorrhage or mass effect. Chest x-ray shows large left-sided pleural effusion. No definitive cause of her altered mental status identified in the emergency department. Patient admitted with both neurology and cardiology placed on consult. Undiagnosed new problem with uncertain prognosis? @ -No Drug Therapy requiring intensive monitoring for toxicity (Heparin, Nitro, Insulin, Cardizem)? @ -No Were any procedures done? @ -No Diagnosis/symptom? @ -Altered Mental status, pleural effusion, troponin elevation Acute, or Chronic, or Acute on Chronic? @ -[acute Uncomplicated (without systemic symptoms) or Complicated (systemic symptoms)? @ -Default Side effects of treatment? @ -No Exacerbation, Progression, or Severe Exacerbation? @ -No Poses a threat to life or bodily function? How? (Chest pain, USA, AR, pneumonia, PE, COPD, DKA, ARF, appy, cholecystitis, CVA, Diverticulitis, Homicidal, Suicidal, threat to staff... and all critical care pts) @ -moderate risk - Lab Data Result diagrams: 09/02/24 14:37 09/02/24 14:37 Lab Results 09/02/24 09/02/24 09/02/24 Range/Units 14:37 14:37 14:37 WBC 9.4 (3.8-10.6) k/uL RBC 4.07 (3.80-5.40) m/uL Hgb 8.8 L (11.4-16.0) gm/dL Hct 32.8 L (34.0-46.0) % MCV 80.7 (80.0-100.0) fL MCH 21.7 L (25.0-35.0) pg MCHC 26.9 L (31.0-37.0) g/dL RDW 21.9 H (11.5-15.5) % Plt Count 182 (150-450) k/uL MPV 8.4 Neutrophils % 77 % Lymphocytes % 13 % Monocytes % 9 % Eosinophils % 0 % Basophils % 0 % Neutrophils # 7.2 (1.3-7.7) k/uL Lymphocytes # 1.2 (1.0-4.8) k/uL Monocytes # 0.8 (0-1.0) k/uL Eosinophils # 0.0 (0-0.7) k/uL Basophils # 0.0 (0-0.2) k/uL Manual Slide Review Performed Hypochromasia Marked Poikilocytosis Slight Anisocytosis Moderate Microcytosis Slight PT 14.2 H (10.0-12.5) sec INR 1.4 H (<1.2) APTT 28.3 (22.0-30.0) sec Sodium (137-145) mmol/L Potassium (3.5-5.1) mmol/L Chloride (98-107) mmol/L Carbon Dioxide (22-30) mmol/L Anion Gap mmol/L BUN (7-17) mg/dL Creatinine (0.52-1.04) mg/dL Est GFR (CKD-EPI)AfAm (>60 ml/min/1.73 sqM) Est GFR (CKD-EPI)NonAf (>60 ml/min/1.73 sqM) Glucose (74-99) mg/dL POC Glucose (mg/dL) (70-110) mg/dL POC Glu Multi Line Claims Adjuster ID Calcium (8.4-10.2) mg/dL Total Bilirubin (0.2-1.3) mg/dL AST (14-36) U/L ALT (4-34) U/L Alkaline Phosphatase (38-126) U/L Troponin I (0.000-0.034) ng/mL Total Protein (6.3-8.2) g/dL Albumin (3.5-5.0) g/dL Urine Color Light Yellow Urine Appearance Clear (Clear) Urine pH 6.5 (5.0-8.0) Ur Specific [place] 1.012 (1.001-1.035) Urine Protein Negative (Negative) Urine Glucose (UA) Negative (Negative) Urine Ketones Negative (Negative) Urine Blood Negative (Negative) Urine Nitrite Negative (Negative) Urine Bilirubin Negative (Negative) Urine Urobilinogen 2.0 (<2.0) mg/dL Ur Leukocyte Esterase Negative (Negative) Urine Opiates Screen Not Detected (NotDetected) Ur Oxycodone Screen Not Detected (NotDetected) Urine Methadone Screen Not Detected (NotDetected) Ur Barbiturates Screen Not Detected (NotDetected) U Tricyclic Antidepress Not Detected (NotDetected) Ur Phencyclidine Scrn Not Detected (NotDetected) Ur Amphetamines Screen Not Detected (NotDetected) U Methamphetamines Scrn Not Detected (NotDetected) U Benzodiazepines Scrn Not Detected (NotDetected) Urine Cocaine Screen Not Detected (NotDetected) U Marijuana (THC) Screen Not Detected (NotDetected) Acetone, Qual (Negative) 09/02/24 09/02/24 09/02/24 Range/Units 14:37 14:37 14:56 WBC (3.8-10.6) k/uL RBC (3.80-5.40) m/uL Hgb (11.4-16.0) gm/dL Hct (34.0-46.0) % MCV (80.0-100.0) fL MCH (25.0-35.0) pg MCHC (31.0-37.0) g/dL RDW (11.5-15.5) % Plt Count (150-450) k/uL MPV Neutrophils % % Lymphocytes % % Monocytes % % Eosinophils % % Basophils % % Neutrophils # (1.3-7.7) k/uL Lymphocytes # (1.0-4.8) k/uL Monocytes # (0-1.0) k/uL Eosinophils # (0-0.7) k/uL Basophils # (0-0.2) k/uL Manual Slide Review Hypochromasia Poikilocytosis Anisocytosis Microcytosis PT (10.0-12.5) sec INR (<1.2) APTT (22.0-30.0) sec Sodium 144 (137-145) mmol/L Potassium 3.9 (3.5-5.1) mmol/L Chloride 105 (98-107) mmol/L Carbon Dioxide 33 H (22-30) mmol/L Anion Gap 6 mmol/L BUN 36 H (7-17) mg/dL Creatinine 1.35 H (0.52-1.04) mg/dL Est GFR (CKD-EPI)AfAm 41 (>60 ml/min/1.73 sqM) Est GFR (CKD-EPI)NonAf 36 (>60 ml/min/1.73 sqM) Glucose 123 H (74-99) mg/dL POC Glucose (mg/dL) 143 H (70-110) mg/dL POC Glu Multi Line Claims Adjuster ID Carmelo Crook Calcium 8.3 L (8.4-10.2) mg/dL Total Bilirubin 0.8 (0.2-1.3) mg/dL AST 23 (14-36) U/L ALT 13 (4-34) U/L Alkaline Phosphatase 67 (38-126) U/L Troponin I 0.054 H* (0.000-0.034) ng/mL Total Protein 6.2 L (6.3-8.2) g/dL Albumin 3.0 L (3.5-5.0) g/dL Urine Color Urine Appearance (Clear) Urine pH (5.0-8.0) Ur Specific [place] (1.001-1.035) Urine Protein (Negative) Urine Glucose (UA) (Negative) Urine Ketones (Negative) Urine Blood (Negative) Urine Nitrite (Negative) Urine Bilirubin (Negative) Urine Urobilinogen (<2.0) mg/dL Ur Leukocyte Esterase (Negative) Urine Opiates Screen (NotDetected) Ur Oxycodone Screen (NotDetected) Urine Methadone Screen (NotDetected) Ur Barbiturates Screen (NotDetected) U Tricyclic Antidepress (NotDetected) Ur Phencyclidine Scrn (NotDetected) Ur Amphetamines Screen (NotDetected) U Methamphetamines Scrn (NotDetected) U Benzodiazepines Scrn (NotDetected) Urine Cocaine Screen (NotDetected) U Marijuana (THC) Screen (NotDetected) Acetone, Qual Negative (Negative) Disposition Clinical Impression: Anemia, Altered mental status, Pleural effusion Disposition: ADMITTED IP TO [facility] Condition: Stable Is patient prescribed a controlled substance at d/c from ED?: No Referrals: Gerardo Kwong DO [Primary Care Provider] - 1-2 days Time of Disposition: 17:19
[2024-09-02 14:55] LABS: Anisocytosis Moderate; Basophils % (A) 0 %; Eosinophils % (A) 0 %; HCT 32.8 % (34.0-46.0); HGB 8.8 gm/dL (11.4-16.0); Hypochromasia Marked; Lymphocytes # (A) 1.2 k/uL (1.0-4.8); Lymphocytes % (A) 13 %; MCH 21.7 pg (25.0-35.0); MCHC 26.9 g/dL (31.0-37.0); MCV 80.7 fL (80.0-100.0); Mean Platelet Volume 8.4; Microcytosis Slight; Monocytes # (A) 0.8 k/uL (0-1.0); Monocytes % (A) 9 %; Neutrophils # (A) 7.2 k/uL (1.3-7.7); Neutrophils % (A) 77 %; Platelet Count 182 k/uL (150-450); Poikilocytosis Slight; RBC 4.07 m/uL (3.80-5.40); RDW 21.9 % (11.5-15.5); WBC 9.4 k/uL (3.8-10.6)
[2024-09-02 14:56] LABS: Appearance,Urine Clear (Clear); Bilirubin,Urine Negative (Negative); Blood,Urine Negative (Negative); Color,Urine Light Yellow; Glucose,Urine (UA) Negative (Negative); Ketones,Urine Negative (Negative); Leukocyte Esterase,Urine Negative (Negative); Nitrite,Urine Negative (Negative); PH, Urine 6.5 (5.0-8.0); Protein,Urine Negative (Negative); Specific Gravity,Urine 1.012 (1.001-1.035)
[2024-09-02 14:57] LABS: Glucose,Whole Blood 143 mg/dL (70-110)
[2024-09-02] MEDS: SODIUM CHLORIDE 0.9% 500 ML 500 ML IV ONE (14:59)
[2024-09-02 15:03] LABS: INR 1.4 (<1.2); Partial Thromboplastin Time 28.3 sec (22.0-30.0); Prothrombin Time 14.2 sec (10.0-12.5)
[2024-09-02 15:08] LABS: ALT 13 U/L (4-34); AST 23 U/L (14-36); African American GFR (CKD) 41 (>60 ml/min/1.73 sqM); Alkaline Phosphatase 67 U/L (38-126); Anion Gap 6 mmol/L; Blood Urea Nitrogen 36 mg/dL (7-17); Calcium 8.3 mg/dL (8.4-10.2); Carbon Dioxide 33 mmol/L (22-30); Chloride 105 mmol/L (98-107); Glucose 123 mg/dL (74-99); Non-African American GFR(CKD) 36 (>60 ml/min/1.73 sqM); Potassium 3.9 mmol/L (3.5-5.1); Sodium 144 mmol/L (137-145); Total Bilirubin 0.8 mg/dL (0.2-1.3); Total Protein 6.2 g/dL (6.3-8.2)
--- NOTE | 2024-09-02 15:14 | XR ---
EXAMINATION TYPE: XR chest 1V portable DATE OF EXAM: 09/02/2024 3:02 PM COMPARISON: Chest 07/30/2024. CLINICAL INDICATION: Female, 84 years old with history of altered mental status; [facility] TECHNIQUE: XR chest 1V portable Frontal view of the chest. FINDINGS: Cardiomegaly. Moderate to large partially layering left pleural effusion. Pulmonary vascular congesti ve changes bilaterally. Small right pleural effusion. No definite pneumothorax. IMPRESSION Cardiomegaly, large left and small right pleural effusions suggesting pulmonary edema. [facility], , 09/02/2024 3:12 PM
[2024-09-02 15:28] LABS: Amphetamine Screen,Urine Not Detected (NotDetected); Barbiturate Screen,Urine Not Detected (NotDetected); Benzodiazepines Screen,Urine Not Detected (NotDetected); Cocaine Screen,Urine Not Detected (NotDetected); Methadone Screen, Urine Not Detected (NotDetected); Opiate Screen,Urine Not Detected (NotDetected); Oxycodone Screen, Urine Not Detected (NotDetected); Phencyclidine Screen,Urine Not Detected (NotDetected); Tricyclic Antidepressant,Urine Not Detected (NotDetected); Urn Cannabinoid Scrn Not Detected (NotDetected)
--- NOTE | 2024-09-02 15:44 | CT ---
EXAMINATION TYPE: CT brain wo con DATE OF EXAM: 09/02/2024 3:38 PM COMPARISON: None.. CLINICAL INDICATION: Female, 84 years old with history of Altered mental status, ams TECHNIQUE: Brain: Axial CT images of the brain were obtained with coronal and sagittal reformats created and rev iewed. Contrast used: None. Oral contrast used: None. CT DLP: 1096.4 mGycm, Automated exposure control for dose reduction was used. FINDINGS: Brain: No acute intracranial hemorrhage, midline shift or evidence of significant acute mass effect. Ventric les and sulci mildly prominent with generalized cerebral volume loss. Patchy ventricular and subcorti adilia white matter hypoattenuation likely resting chronic microvascular ischemic disease. No sizable ex tra axial fluid collection. No depressed calvarial fracture. No large scalp hematoma. Basal cisterns appear patent. Previous bilateral cataract lens extraction noted. Paranasal sinuses and mastoid air c ells appear grossly patent. IMPRESSION: No acute intracranial process. [facility], , 09/02/2024 3:42 PM
[2024-09-02] MEDS ORDERED: ACETAMINOPHEN TAB 325 MG TAB PO PRN (17:15)
[2024-09-02] MEDS ORDERED: NALOXONE 0.4 MG/ML 1 ML VIAL IV PRN (17:15)
[2024-09-02] MEDS: SODIUM CHLORIDE 0.9% 1,000 ML IV SCH (17:23)
[2024-09-02 17:50] LABS: VBG PH 7.37 (7.31-7.41)
[2024-09-02] MEDS: APIXABAN 5 MG TAB PO SCH (21:31)
[2024-09-02] MEDS: FUROSEMIDE 40 MG TAB PO SCH (21:31)
[2024-09-03] MEDS ORDERED: FUROSEMIDE 40 MG TAB PO SCH (07:30)
[2024-09-03] MEDS ORDERED: APIXABAN 5 MG TAB PO SCH (07:30)
[2024-09-03] MEDS: APIXABAN 2.5 MG TABLET PO SCH (08:35)
[2024-09-03] MEDS: METOPROLOL SUCCINATE (ER) 50 MG TAB.ER.24H PO SCH (08:39)
--- NOTE | 2024-09-03 09:25 | P.CRDCN ---
History of Present Illness History of present illness: HISTORY OF PRESENT ILLNESS: This is a 84-year-old female with a past medical history significant for hypertension, hyperlipidemia, atrial fibrillation, and hypothyroidism. Patient follows in the office with Dr. Sexton. We have been asked to see the patient in consultation for elevated troponins and CHF. Patient examined at the bedside in the emergency room. Patient's daughters present. Patient's mentation appears altered and she is unable to give much history. The patient's daughter states that the patient was at home and became very confused. She states that she began shaking her head involuntarily and also bit her tongue. She states that it looked as though her mom had a seizure. She states she does not have a history of seizures. The patient currently denies chest pain or pressure. Denies shortness of breath. Bedside telemetry reveals atrial fibrillation with controlled ventricular rate. DIAGNOSTICS: - EKG reveals A-fib with controlled ventricular rate - Chest xray cardiomegaly, large left and small right pleural effusion suggesting pulmonary edema - CT brain: Negative for acute process - Laboratory data: WBC 9.4. Hemoglobin 8.8. Platelet count 182. Sodium 144. Potassium 3.9. BUN 36. Creatinine 1.35. Troponin 0.054. - Current home cardiac medications include Pravachol 10 mg at night, Lasix 40 mg twice a day, metoprolol succinate 50 mg daily, and Eliquis 5 mg twice a day - Most recent echocardiogram obtained in January 2023 revealed ejection fraction 40 to 45%, global hypokinesis, severe pulm hypertension, severe mitral regurgitation, moderate tricuspid regurgitation - Lexiscan stress test completed in the office in September 2022 was negative for ischemia REVIEW OF SYSTEMS: At the time of my exam: Unable to obtain thorough review of systems secondary to altered mental status PHYSICAL EXAM: VITAL SIGNS: Reviewed. GENERAL: Well-developed in no acute distress. HEENT: Head is normocephalic. Pupils are equal, round. Sclerae anicteric. Mucous membranes of the mouth are moist. Neck supple. No JVD or thyromegaly LUNGS: Respirations even and unlabored. Lungs essentially clear to auscultation bilaterally, diminished. HEART: Irregular rate and rhythm. S1 and S2 heard. Systolic murmur noted ABDOMEN: Soft. Nondistended. Nontender. EXTREMITIES: Normal range of motion. No clubbing or cyanosis. Peripheral pulses intact. No lower extremity edema NEUROLOGIC: Slightly lethargic. ASSESSMENT: Altered mental status with episode of involuntary shaking/jerking, rule out seizure Large left and small right pleural effusion Acute on chronic heart failure with reduced EF, 40 to 45% Persistent atrial fibrillation with controlled ventricular rate Chronic kidney disease 1 minimally elevated troponin, likely secondary to CKD, no evidence of elliot cardial injury or ischemia Hypertension Hyperlipidemia PLAN: Obtain 2D echo to assess cardiac structure and function Continue Eliquis Resume additional home cardiac medications Continue IV Lasix 40 mg every 12 hours. Likely transition to oral diuretics tomorrow. Daily weights, accurate intake and output, and monitoring of kidney function Check BNP Obtain 1 more troponin for completeness sake Await neurology evaluation Further recommendations pending patient course Nurse practitioner note has been reviewed by physician. Signing provider agrees with the documented findings, assessment, and plan of care documented by DONOR SERVICES COORDINATOR as a scribe. Past Medical History Past Medical History: Atrial Fibrillation, Heart Failure, CVA/TIA, Eye Disorder, Hyperlipidemia, Hypertension, Osteoarthritis (OA), Renal Disease, Thyroid Disorder Additional Past Medical History / Comment(s): frequent Vertigo, macular degeneration, anemia, recent blood transfusion on Sun., on & off N/V for 3 weeks, emphysema, chronic kidney disease, TIA-s-no deficits per daughter, bout of CHF about a year ago but hasn't had any recent problems per daughter, osteoporosis, currently has 3 compression fx.'s in back History of Any Multi-Drug Resistant Organisms: None Reported Past Surgical History: Appendectomy, Section, Cholecystectomy Additional Past Surgical History / Comment(s): breast biopsy in 1986 pt stated "it turned out to be an absess." C/S x5 Past Anesthesia/Blood Transfusion Reactions: No Reported Reaction Additional Past Anesthesia/Blood Transfusion Reaction / Comment(s): no transfusion reactions Past Psychological History: No Psychological Hx Reported Smoking Status: Current every day smoker - Past Family History Mother Family Medical History: Cancer Additional Family Medical History / Comment(s): Gallbladder cancer Father Family Medical History: Myocardial Infarction ([place]) Medications and Allergies Home Medications Medication Instructions Recorded Confirmed Type Pravastatin Sodium [Pravachol] 10 mg PO HS 06/08/20 09/02/24 History Metoprolol Succinate [Toprol XL] 50 mg PO DAILY #90 tab 01/26/23 09/02/24 Rx Apixaban [Eliquis] 5 mg PO BID-W/MEALS 07/09/24 09/02/24 History Donepezil [Aricept] 10 mg PO HS 09/02/24 09/02/24 History Furosemide [Lasix] 40 mg PO BID-W/MEALS 09/02/24 09/02/24 History Iron (Unknown Dose) 2 tab PO DAILY 09/02/24 09/02/24 History Levothyroxine Sodium [Tirosint] 100 mcg PO DAILY 09/02/24 09/02/24 History Potassium Chloride ER [K-Dur 20] 20 meq PO DAILY 09/02/24 09/02/24 History Vit C/E/Zn/Coppr/Lutein/Zeaxan 1 cap PO BID-W/MEALS 09/02/24 09/02/24 History [Preservision Areds 2 Softgel] Allergies Allergy/AdvReac Type Severity Reaction Status Date / Time No Known Allergies Allergy Verified 09/02/24 15:30 Physical Exam Vitals: Vital Signs Temp Pulse Resp BP Pulse Ox 09/03/24 08:00 81 22 134/75 94 L 09/03/24 04:22 68 16 125/62 96 09/03/24 00:53 73 18 122/92 93 L 09/02/24 22:16 82 16 109/66 95 09/02/24 18:09 97.3 F L 70 20 111/81 96 09/02/24 17:00 74 20 94 L 09/02/24 13:54 98.1 F 40 L 18 112/56 100 Results 09/02/24 14:37 09/02/24 14:37 Cardiac Enzymes 09/02/24 09/02/24 Range/Units 14:37 14:37 AST 23 (14-36) U/L Troponin I 0.054 H* (0.000-0.034) ng/mL Coagulation 09/02/24 Range/Units 14:37 PT 14.2 H (10.0-12.5) sec APTT 28.3 (22.0-30.0) sec CBC 09/02/24 Range/Units 14:37 WBC 9.4 (3.8-10.6) k/uL RBC 4.07 (3.80-5.40) m/uL Hgb 8.8 L (11.4-16.0) gm/dL Hct 32.8 L (34.0-46.0) % Plt Count 182 (150-450) k/uL Comprehensive Metabolic Panel 09/02/24 Range/Units 14:37 Sodium 144 (137-145) mmol/L Potassium 3.9 (3.5-5.1) mmol/L Chloride 105 (98-107) mmol/L Carbon Dioxide 33 H (22-30) mmol/L BUN 36 H (7-17) mg/dL Creatinine 1.35 H (0.52-1.04) mg/dL Glucose 123 H (74-99) mg/dL Calcium 8.3 L (8.4-10.2) mg/dL AST 23 (14-36) U/L ALT 13 (4-34) U/L Alkaline Phosphatase 67 (38-126) U/L Total Protein 6.2 L (6.3-8.2) g/dL Albumin 3.0 L (3.5-5.0) g/dL Current Medications Generic Name Dose Route Start Last Admin Trade Name Bradq PRN Reason Stop Dose Admin Acetaminophen 650 mg 09/02/24 17:15 Acetaminophen Tab 325 Mg Tab PO Q6HR PRN Mild Pain or Fever > 100.5 Apixaban 2.5 mg 09/03/24 07:30 09/03/24 08:35 Apixaban 2.5 Mg Tablet PO 2.5 mg BID-W/MEALS SHAQ Administration Protocol Donepezil HCl 10 mg 09/03/24 21:00 Donepezil 10 Mg Tab PO HS [facility] Furosemide 40 mg 09/02/24 21:45 09/03/24 08:38 Furosemide 40 Mg Tab PO 40 mg BID-W/MEALS SHAQ Administration Levothyroxine Sodium 100 mcg 09/03/24 09:15 Levothyroxine 100 Mcg Tab PO DAILY@0630 [facility] Metoprolol Succinate 50 mg 09/03/24 09:00 09/03/24 08:39 Metoprolol Succinate (Er) 50 Mg Tab.Er.24h PO 50 mg DAILY SHAQ Administration Naloxone HCl 0.2 mg 09/02/24 17:15 Naloxone 0.4 Mg/Ml 1 Ml Vial IV Q2M PRN Opioid Reversal Pravastatin Sodium 10 mg 09/03/24 21:00 Pravastatin Sodium 20 Mg Tab PO HS [facility] 09/02/24 14:37 09/02/24 14:37
--- NOTE | 2024-09-03 09:32 | P.HPIM ---
History of Present Illness 34-year-old pleasant female was brought in by daughter because of her daughter because of altered mental status which started yesterday. Patient was recently diagnosed with dementia and was started on Aricept. Patient is hypoxic does not use any oxygen patient has chest x-ray which showed pulm edema patient does have history of congestive heart failure EF of around 40 to 45% with severe mitral regurgitation, moderate pulmonary hypertension. Patient has bilateral pleural effusion large left and small right pleural effusion. Daughter is also concerned that patient was shaking and concerned about seizure although patient did not lose any consciousness at tongue bite does not appear to be postictal but was confused. Patient does not have any evidence of infection at this time urinalysis is within normal limits patient does not have any UTI symptoms REVIEW OF SYSTEMS: All other systems are negative except those mentioned in the HPI PHYSICAL EXAMINATION: GENERAL: The patient is alert and oriented x2, not in any acute distress. Well developed, well nourished. HEENT: Pupils are round and equally reacting to light. EOMI. No scleral icterus. No conjunctival pallor. Normocephalic, atraumatic. No pharyngeal erythema. No thyromegaly. CARDIOVASCULAR: S1 and S2 present. No murmurs, rubs, or gallops. PULMONARY: Chest is clear to auscultation, no wheezing or crackles. ABDOMEN: Soft, nontender, nondistended, normoactive bowel sounds. No palpable organomegaly. MUSCULOSKELETAL: No joint swelling or deformity. EXTREMITIES: No cyanosis, clubbing, or pedal edema. NEUROLOGICAL: Gross neurological examination did not reveal any focal deficits. SKIN: No rashes. Assessment and plan -Metabolic encephalopathy probably secondary to pain start failure exacerbation. CT did not show any evidence of acute stroke although does have chronic microvascular ischemic changes. 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 -There is heart failure chronic systolic function with acute exacerbation patient will be started on Lasix 40 mg twice a day IV oral Lasix will be discontinued -Persistent atrial fibrillation patient is rate controlled continue with anticoagulation continue beta-blockers -Bilateral pleural effusion secondary to congestive heart failure patient may benefit from pleural tap because of presumed concerning pulmonary -Chronic kidney disease stage III-IV -Troponin elevation secondary to renal failure and A-fib repeat troponin -Hypertension -Dementia possibly vascular dementia DVT prophylaxis: On Eliquis which will be continued Past Medical History Past Medical History: Atrial Fibrillation, Heart Failure, CVA/TIA, Eye Disorder, Hyperlipidemia, Hypertension, Osteoarthritis (OA), Renal Disease, Thyroid Disorder Additional Past Medical History / Comment(s): frequent Vertigo, macular degeneration, anemia, recent blood transfusion on Sun., on & off N/V for 3 weeks, emphysema, chronic kidney disease, TIA-s-no deficits per daughter, bout of CHF about a year ago but hasn't had any recent problems per daughter, osteoporosis, currently has 3 compression fx.'s in back History of Any Multi-Drug Resistant Organisms: None Reported Past Surgical History: Appendectomy, Section, Cholecystectomy Additional Past Surgical History / Comment(s): breast biopsy in 1986 pt stated "it turned out to be an absess." C/S x5 Past Anesthesia/Blood Transfusion Reactions: No Reported Reaction Additional Past Anesthesia/Blood Transfusion Reaction / Comment(s): no transfusion reactions Past Psychological History: No Psychological Hx Reported Smoking Status: Current every day smoker - Past Family History Mother Family Medical History: Cancer Additional Family Medical History / Comment(s): Gallbladder cancer Father Family Medical History: Myocardial Infarction ([place]) Medications and Allergies Home Medications Medication Instructions Recorded Confirmed Type Pravastatin Sodium [Pravachol] 10 mg PO HS 06/08/20 09/02/24 History Metoprolol Succinate [Toprol XL] 50 mg PO DAILY #90 tab 01/26/23 09/02/24 Rx Apixaban [Eliquis] 5 mg PO BID-W/MEALS 07/09/24 09/02/24 History Donepezil [Aricept] 10 mg PO HS 09/02/24 09/02/24 History Furosemide [Lasix] 40 mg PO BID-W/MEALS 09/02/24 09/02/24 History Iron (Unknown Dose) 2 tab PO DAILY 09/02/24 09/02/24 History Levothyroxine Sodium [Tirosint] 100 mcg PO DAILY 09/02/24 09/02/24 History Potassium Chloride ER [K-Dur 20] 20 meq PO DAILY 09/02/24 09/02/24 History Vit C/E/Zn/Coppr/Lutein/Zeaxan 1 cap PO BID-W/MEALS 09/02/24 09/02/24 History [Preservision Areds 2 Softgel] Allergies Allergy/AdvReac Type Severity Reaction Status Date / Time No Known Allergies Allergy Verified 09/02/24 15:30 Physical Exam Vitals: Vital Signs Temp Pulse Resp BP Pulse Ox 09/03/24 08:00 81 22 134/75 94 L 09/03/24 04:22 68 16 125/62 96 09/03/24 00:53 73 18 122/92 93 L 09/02/24 22:16 82 16 109/66 95 09/02/24 18:09 97.3 F L 70 20 111/81 96 09/02/24 17:00 74 20 94 L 09/02/24 13:54 98.1 F 40 L 18 112/56 100 Results CBC & Chem 7: 09/02/24 14:37 09/02/24 14:37 Labs: Abnormal Lab Results - Last 24 Hours (Table) 09/02/24 09/02/24 09/02/24 Range/Units 14:37 14:37 14:37 Hgb 8.8 L (11.4-16.0) gm/dL Hct 32.8 L (34.0-46.0) % MCH 21.7 L (25.0-35.0) pg MCHC 26.9 L (31.0-37.0) g/dL RDW 21.9 H (11.5-15.5) % PT 14.2 H (10.0-12.5) sec INR 1.4 H (<1.2) VBG pCO2 (37-51) mmHg VBG HCO3 (24-28) mmol/L Carbon Dioxide 33 H (22-30) mmol/L BUN 36 H (7-17) mg/dL Creatinine 1.35 H (0.52-1.04) mg/dL Glucose 123 H (74-99) mg/dL POC Glucose (mg/dL) (70-110) mg/dL Calcium 8.3 L (8.4-10.2) mg/dL Troponin I (0.000-0.034) ng/mL Total Protein 6.2 L (6.3-8.2) g/dL Albumin 3.0 L (3.5-5.0) g/dL 09/02/24 09/02/24 09/02/24 Range/Units 14:37 14:56 15:01 Hgb (11.4-16.0) gm/dL Hct (34.0-46.0) % MCH (25.0-35.0) pg MCHC (31.0-37.0) g/dL RDW (11.5-15.5) % PT (10.0-12.5) sec INR (<1.2) VBG pCO2 53 H (37-51) mmHg VBG HCO3 31 H (24-28) mmol/L Carbon Dioxide (22-30) mmol/L BUN (7-17) mg/dL Creatinine (0.52-1.04) mg/dL Glucose (74-99) mg/dL POC Glucose (mg/dL) 143 H (70-110) mg/dL Calcium (8.4-10.2) mg/dL Troponin I 0.054 H* (0.000-0.034) ng/mL Total Protein (6.3-8.2) g/dL Albumin (3.5-5.0) g/dL
[2024-09-03] MEDS: LEVOTHYROXINE 100 MCG TAB PO SCH (11:05)
--- NOTE | 2024-09-03 12:43 | US ---
EXAMINATION TYPE: US chest DATE OF EXAM: 09/03/2024 COMPARISON: NONE CLINICAL INDICATION: Female, 84 years old with history of Pleural effusions, left > right; TECHNIQUE: Grayscale imaging of the chest. Targeted ultrasound of the posterior lower bilateral omari thoraces FINDINGS: EXAM MEASUREMENTS: Right Pleural Effusion pocket size: 6.0 cm Right skin surface to fluid distance: 1.5 cm Left Pleural Effusion pocket size: 9.2 cm Left skin surface to fluid distance: 1.8 cm Right side marked for possible thoracentesis outside the dept. Left side marked for possible thoracentesis outside the dept. Pulmonologists are able to review the images in the patient?s EMR. IMPRESSIONS: Large bilateral pleural effusions both marked for possible thoracentesis [facility], Workstation: [email or web address] 09/03/2024 12:40 PM
--- NOTE | 2024-09-03 15:14 | P.CNPUL ---
History of Present Illness Consult date: 09/03/24 Requesting physician: Megha Cooper Reason for consult: pleural effusion, abnormal CXR/CT Chief complaint: Altered mental status History of present illness: This is an 84-year-old female patient with a known history of relation anticoagulated with Eliquis, CVA/TIA, congestive heart failure, chronic kidney disease, anemia, hypothyroidism, chronic and ongoing tobacco dependence who was brought into the emergency room yesterday for confusion and altered mental status according to her family members who are present. Some progressive weakness and poor appetite over the past couple of days. CT scan of the brain revealed no acute intracranial process. Chest x-ray reveals cardiomegaly and a large left and small right pleural effusions suggestive of pulmonary edema. White count 9.4. Hemoglobin 8.8. Platelets 187. INR 1.4. Sodium 144. Potassium 3.9. Bicarb 33. BUN 36. Creatinine 1.37. Glucose 123. Troponin 0.054, 0.038. proBNP 14,100. Urinalysis clean. Drug screen clean. Viral screen negative. She is seen today in consultation in the emergency department. She is currently resting on a stretcher. Awake but very weak and slow to respond. She is maintaining O2 saturations in the mid 90s on 2 L/min per nasal cannula. She is afebrile. Hemodynamically stable. Review of Systems REVIEW OF SYSTEMS: CONSTITUTIONAL: Positive for generalized weakness, denies any recent significant weight loss or weight gain. EYES: Denies change in vision. EARS, NOSE, MOUTH, THROAT: Denies headaches, denies sore throat. CARDIOVASCULAR: Denies chest pain, palpitations or syncopal episodes. RESPIRATORY: Denies shortness of breath, cough, congestion or hemoptysis. GASTROINTESTINAL: Positive for poor appetite. GENITOURINARY: Denies hematuria, denies infections. MUSKULOSKELETAL: Denies pain, denies swelling. INTEGUMENTARY: Denies rash, denies eczema. NEUROLOGICAL: Positive for altered mental status. PSYCHIATRIC: Denies anxiety, denies depression. HEMATOLOGIC/LYMPHATIC: Denies anemia, denies enlarged lymph nodes. Past Medical History Past Medical History: Atrial Fibrillation, Heart Failure, CVA/TIA, Eye Disorder, Hyperlipidemia, Hypertension, Osteoarthritis (OA), Renal Disease, Thyroid Disorder Additional Past Medical History / Comment(s): frequent Vertigo, macular degeneration, anemia, recent blood transfusion on Sun., on & off N/V for 3 weeks, emphysema, chronic kidney disease, TIA-s-no deficits per daughter, bout of CHF about a year ago but hasn't had any recent problems per daughter, osteoporosis, currently has 3 compression fx.'s in back History of Any Multi-Drug Resistant Organisms: None Reported Past Surgical History: Appendectomy, Section, Cholecystectomy Additional Past Surgical History / Comment(s): breast biopsy in 1986 pt stated "it turned out to be an absess." C/S x5 Past Anesthesia/Blood Transfusion Reactions: No Reported Reaction Additional Past Anesthesia/Blood Transfusion Reaction / Comment(s): no transfusion reactions Past Psychological History: No Psychological Hx Reported Smoking Status: Current every day smoker - Past Family History Mother Family Medical History: Cancer Additional Family Medical History / Comment(s): Gallbladder cancer Father Family Medical History: Myocardial Infarction ([place]) Medications and Allergies Home Medications Medication Instructions Recorded Confirmed Type Pravastatin Sodium [Pravachol] 10 mg PO HS 06/08/20 09/02/24 History Metoprolol Succinate [Toprol XL] 50 mg PO DAILY #90 tab 01/26/23 09/02/24 Rx Apixaban [Eliquis] 5 mg PO BID-W/MEALS 07/09/24 09/02/24 History Donepezil [Aricept] 10 mg PO HS 09/02/24 09/02/24 History Furosemide [Lasix] 40 mg PO BID-W/MEALS 09/02/24 09/02/24 History Iron (Unknown Dose) 2 tab PO DAILY 09/02/24 09/02/24 History Levothyroxine Sodium [Tirosint] 100 mcg PO DAILY 09/02/24 09/02/24 History Potassium Chloride ER [K-Dur 20] 20 meq PO DAILY 09/02/24 09/02/24 History Vit C/E/Zn/Coppr/Lutein/Zeaxan 1 cap PO BID-W/MEALS 09/02/24 09/02/24 History [Preservision Areds 2 Softgel] Allergies Allergy/AdvReac Type Severity Reaction Status Date / Time No Known Allergies Allergy Verified 09/02/24 15:30 Physical Exam Vitals: Vital Signs Temp Pulse Resp BP Pulse Ox 09/03/24 14:00 84 20 113/69 95 09/03/24 11:00 67 20 122/84 97 09/03/24 08:15 90 L 09/03/24 08:00 81 22 134/75 94 L 09/03/24 04:22 68 16 125/62 96 09/03/24 00:53 73 18 122/92 93 L 09/02/24 22:16 82 16 109/66 95 09/02/24 18:09 97.3 F L 70 20 111/81 96 09/02/24 17:00 74 20 94 L GENERAL EXAM: Alert, very weak, altered, pale 84-year-old female, on 2 L nasal cannula, fairly comfortable in no apparent distress. HEAD: Normocephalic. EYES: Normal reaction of pupils, equal size. NOSE: Clear with pink turbinates. THROAT: No erythema or exudates. NECK: No masses, no JVD. CHEST: No chest wall deformity. LUNGS: Equal air entry with crackles in the bilateral bases left greater than right.. CVS: S1 and S2 normal with no audible murmur, regular rhythm. ABDOMEN: No hepatosplenomegaly, normal bowel sounds, no guarding or rigidity. SPINE: No scoliosis or deformity SKIN: No rashes CENTRAL NERVOUS SYSTEM: No focal deficits, tone is normal in all 4 extremities. EXTREMITIES: There is no peripheral edema. No clubbing, no cyanosis. Peripheral pulses are intact. Results - Laboratory Findings CBC and BMP: 09/02/24 14:37 09/02/24 14:37 PT/INR, D-dimer PT 14.2 sec (10.0-12.5) H 09/02/24 14:37 INR 1.4 (<1.2) H 09/02/24 14:37 Abnormal lab findings: Abnormal Labs 09/02/24 09/02/24 09/02/24 14:37 14:37 14:37 Hgb 8.8 L Hct 32.8 L MCH 21.7 L MCHC 26.9 L RDW 21.9 H PT 14.2 H INR 1.4 H VBG pCO2 VBG HCO3 Carbon Dioxide 33 H BUN 36 H Creatinine 1.35 H Glucose 123 H POC Glucose (mg/dL) Calcium 8.3 L Troponin I Total Protein 6.2 L Albumin 3.0 L 12/07/24 12/07/24 12/07/24 14:37 14:56 15:01 Hgb Hct MCH MCHC RDW PT INR VBG pCO2 53 H VBG HCO3 31 H Carbon Dioxide BUN Creatinine Glucose POC Glucose (mg/dL) 143 H Calcium Troponin I 0.054 H* Total Protein Albumin 09/03/24 09:16 Hgb Hct MCH MCHC RDW PT INR VBG pCO2 VBG HCO3 Carbon Dioxide BUN Creatinine Glucose POC Glucose (mg/dL) Calcium Troponin I 0.038 H* Total Protein Albumin - Diagnostic Findings Chest x-ray: image reviewed Assessment and Plan Assessment: Altered mental status of unclear etiology Acute hypoxic respiratory failure secondary to bilateral pleural effusions left greater than right Atrial fibrillation, anticoagulated with Eliquis Acute on chronic anemia, current hemoglobin 8.8 Acute kidney injury suspect secondary to dehydration Troponin leak History of hypertension Hyperlipidemia Hypothyroidism Chronic kidney disease Plan: The patient was seen and evaluated Imaging, labs and medications reviewed Initiated on Lasix 40 mg IV every 12 hours Obtain an ultrasound of the chest Currently on Eliquis Titrate the FiO2 as tolerated We will continue to follow and make further recommendations based on her clinical status I have personally seen and examined the patient, performed the documentation and the assessment and plan as written. Number of minutes spent on the visit: 20 Dictation was produced using [employer] dictation software. Please excuse any grammatical, word or spelling errors.
[2024-09-03] MEDS ORDERED: levETIRAcetam 500 MG TAB PO ONE (16:00)
[2024-09-03] MEDS: levETIRAcetam 500 MG TAB PO SCH (16:04)
--- NOTE | 2024-09-03 17:25 | P.CNNES ---
History of Present Illness Consult date: 09/03/24 Requesting physician: Kee Strickland Reason for Consult: ams History of Present Illness: This is an 84-year-old woman presents to the emergency department because of episode of confusion. Patient is accompanied with her who provides some of the history. According to the yesterday around 11:30 AM or 12 PM noon patient was confused and she had head shaking that lasted for 2 minutes and the felt maybe she had a seizure. felt maybe she bit her tongue but patient denies biting her tongue. According to while she was having the episode having a hard time describing the episode since felt like a blur to him but was concerned about a seizure. He cannot remember if her eye direction but thinks maybe she was looking at him but unsure. He denies any jerking of of the extremities but he just felt was the head. No foaming around the mouth. After the episode she was confused a little bit. Patient does not have any history of seizures in the past. According the patient and her she does not have a history of stroke but per the medical record it seems that she has a history of stroke/TIA. They do acknowledge that the patient has a history of atrial fibrillation and she is on Eliquis. She has a history of congestive heart failure chronic kidney insufficiency. She feels she is doing better today. Some of the workup during this hospital visit consisted of: Creatinine is 1.35, BUN is 36 Troponin is 0.054 and most recent troponin is 0.038 I reviewed the rest of the lab workup. Next CT of the head is reported as no acute intracranial process. I personally reviewed the CT and agree with the report. Review of Systems As per HPI. Past Medical History Past Medical History: Atrial Fibrillation, Heart Failure, CVA/TIA, Eye Disorder, Hyperlipidemia, Hypertension, Osteoarthritis (OA), Renal Disease, Thyroid Disorder Additional Past Medical History / Comment(s): frequent Vertigo, macular degeneration, anemia, recent blood transfusion on Sun., on & off N/V for 3 weeks, emphysema, chronic kidney disease, TIA-s-no deficits per daughter, bout of CHF about a year ago but hasn't had any recent problems per daughter, osteoporosis, currently has 3 compression fx.'s in back History of Any Multi-Drug Resistant Organisms: None Reported Past Surgical History: Appendectomy, Section, Cholecystectomy Additional Past Surgical History / Comment(s): breast biopsy in 1986 pt stated " it turned out to be an absess." C/S x5 Past Anesthesia/Blood Transfusion Reactions: No Reported Reaction Additional Past Anesthesia/Blood Transfusion Reaction / Comment(s): no transfusion reactions Past Psychological History: No Psychological Hx Reported Smoking Status: Current every day smoker - Past Family History Mother Family Medical History: Cancer Additional Family Medical History / Comment(s): Gallbladder cancer Father Family Medical History: Myocardial Infarction ([place]) Medications and Allergies Home Medications Medication Instructions Recorded Confirmed Type Pravastatin Sodium [Pravachol] 10 mg PO HS 06/08/20 09/02/24 History Metoprolol Succinate [Toprol XL] 50 mg PO DAILY #90 tab 01/26/23 09/02/24 Rx Apixaban [Eliquis] 5 mg PO BID-W/MEALS 07/09/24 09/02/24 History Donepezil [Aricept] 10 mg PO HS 09/02/24 09/02/24 History Furosemide [Lasix] 40 mg PO BID-W/MEALS 09/02/24 09/02/24 History Iron (Unknown Dose) 2 tab PO DAILY 09/02/24 09/02/24 History Levothyroxine Sodium [Tirosint] 100 mcg PO DAILY 09/02/24 09/02/24 History Potassium Chloride ER [K-Dur 20] 20 meq PO DAILY 09/02/24 09/02/24 History Vit C/E/Zn/Coppr/Lutein/Zeaxan 1 cap PO BID-W/MEALS 09/02/24 09/02/24 History [Preservision Areds 2 Softgel] Allergies Allergy/AdvReac Type Severity Reaction Status Date / Time No Known Allergies Allergy Verified 09/02/24 15:30 Physical Examination - Vital Signs Vital Signs: Vital Signs Temp Pulse Resp BP Pulse Ox 09/03/24 15:00 88 22 105/67 96 09/03/24 14:00 84 20 113/69 95 09/03/24 11:00 67 20 122/84 97 09/03/24 08:15 90 L 09/03/24 08:00 81 22 134/75 94 L 09/03/24 04:22 68 16 125/62 96 09/03/24 00:53 73 18 122/92 93 L 09/02/24 22:16 82 16 109/66 95 09/02/24 18:09 97.3 F L 70 20 111/81 96 General: Lying in bed and is not in acute distress. Lung: Seems slight tachypeic. Neuro: Somewhat limited. Patient is mildly drowsy but is awake both voice. She is oriented to self and she stated that she is at [facility]. She is following simple commands. No aphasia. No neglect. The pupils are round equal reactive to light. Visual jimenez are full to confrontation. Extraocular movements intact no nystagmus. No facial weakness. No dysarthria Tongue is midline move [id number] without difficulty but has a tongue bite over the right lateral side on the anterior aspect of one third. Motor the strength there is upper extremities 5 out of 5. In the lower extremity somewhat limited but was able to lift up the right upper extremity above gravity while the left was only able to bend her left knee but stated this is chronic but the answer was not consistent. thinks this is old. Sensations to go through stricture reflexes 2+ Plantars are mute Results - Laboratory Findings CBC and BMP: 09/02/24 14:37 09/02/24 14:37 Abnormal Lab Findings: Abnormal Labs 09/02/24 09/02/24 09/02/24 14:37 14:37 14:37 Hgb 8.8 L Hct 32.8 L MCH 21.7 L MCHC 26.9 L RDW 21.9 H PT 14.2 H INR 1.4 H VBG pCO2 VBG HCO3 Carbon Dioxide 33 H BUN 36 H Creatinine 1.35 H Glucose 123 H POC Glucose (mg/dL) Calcium 8.3 L Troponin I Total Protein 6.2 L Albumin 3.0 L 09/02/24 09/02/24 09/02/24 14:37 14:56 15:01 Hgb Hct MCH MCHC RDW PT INR VBG pCO2 53 H VBG HCO3 31 H Carbon Dioxide BUN Creatinine Glucose POC Glucose (mg/dL) 143 H Calcium Troponin I 0.054 H* Total Protein Albumin 09/03/24 09:16 Hgb Hct MCH MCHC RDW PT INR VBG pCO2 VBG HCO3 Carbon Dioxide BUN Creatinine Glucose POC Glucose (mg/dL) Calcium Troponin I 0.038 H* Total Protein Albumin Assessment and Plan Assessment: This is an 84-year-old man who presents emergency department because of episode of confusion and according to she had head shaking lasting for 2 minutes then afterwards she was somewhat confused and the was concerned seems like a seizure. She does not have any history of stroke. Episode of head shaking with confusion: Unknown exact etiology of encephalopathy. One of the differential is seizure. Rule out stroke. Slightly elevated troponin History of stroke/TIA according to medical record but patient and her do not remember that she had a stroke. History of atrial fibrillation on Eliquis Hypertension History of congestive heart failure Chronic kidney insufficiency Hypothyroidism Chronic tobacco use Plan: Ordered a routine EEG which will be completed tomorrow I ordered MRI of the brain Ordered TSH, vitamin B12, ammonia level. I started the patient on Keppra 500 mg twice a day because of concern for seizure Seizure precautions seizure pads Cardiology is on board Pulmonary team is on board and they are consulted for pulmonary edema Patient is on Eliquis 2.5 mg twice daily her home dose. Will defer the rest of the medical management to primary other specialist. The plan is discussed with patient and her . Thank you for the consultation. Time with Patient: Greater than 30
[2024-09-03 19:54] LABS: T4, Free (Free Thyroxine) 2.34 ng/dL (0.78-2.19)
[2024-09-03] MEDS: DONEPEZIL 10 MG TAB PO SCH (21:05)
[2024-09-03] MEDS: PRAVASTATIN SODIUM 20 MG TAB PO SCH (21:05)
[2024-09-03] MEDS ORDERED: ZINC OXIDE PASTE (Z-GUARD) 1 APPLIC TOPICAL PRN (22:39)
[2024-09-03] MEDS: FUROSEMIDE 10 MG/ML 4 ML VIAL IV SCH (23:06)
[2024-09-03] MEDS: FUROSEMIDE 40 MG TAB PO STA (23:46)
[2024-09-04 07:59] LABS: Anisocytosis Moderate; Basophils % (A) 0 %; Eosinophils % (A) 0 %; HCT 31.4 % (34.0-46.0); HGB 8.2 gm/dL (11.4-16.0); Hypochromasia Marked; Lymphocytes # (A) 1.6 k/uL (1.0-4.8); Lymphocytes % (A) 11 %; MCH 21.8 pg (25.0-35.0); MCHC 26.1 g/dL (31.0-37.0); MCV 83.7 fL (80.0-100.0); Mean Platelet Volume 8.4; Microcytosis Slight; Monocytes # (A) 1.1 k/uL (0-1.0); Monocytes % (A) 8 %; Neutrophils # (A) 10.7 k/uL (1.3-7.7); Neutrophils % (A) 78 %; Platelet Count 139 k/uL (150-450); Poikilocytosis Slight; RBC 3.75 m/uL (3.80-5.40); RDW 21.6 % (11.5-15.5); WBC 13.7 k/uL (3.8-10.6)
[2024-09-04 08:19] LABS: ALT 12 U/L (4-34); AST 19 U/L (14-36); African American GFR (CKD) 41 (>60 ml/min/1.73 sqM); Albumin 2.9 g/dL (3.5-5.0); Alkaline Phosphatase 71 U/L (38-126); Anion Gap 8 mmol/L; Blood Urea Nitrogen 39 mg/dL (7-17); Calcium 8.5 mg/dL (8.4-10.2); Carbon Dioxide 29 mmol/L (22-30); Chloride 104 mmol/L (98-107); Glucose 81 mg/dL (74-99); Non-African American GFR(CKD) 35 (>60 ml/min/1.73 sqM); Potassium 3.3 mmol/L (3.5-5.1); Sodium 141 mmol/L (137-145); Total Bilirubin 0.9 mg/dL (0.2-1.3); Total Protein 5.8 g/dL (6.3-8.2)
[2024-09-04 08:26] LABS: NT-Pro-B-Type Natriuretic Pept 17500 pg/mL
[2024-09-04] MEDS: levETIRAcetam 500 MG TAB PO SCH (09:07)
--- NOTE | 2024-09-04 12:06 | CA ---
Transthoracic Echo Report Name: Zita Bates Age: 84 Gender: F : 1940 Exam Date: 09/04/2024 09:23 Exam Location: [facility] Ht (in): 60 Wt (lb): 126 Ordering Physician: Ne Payton Attending/Referring Phys: [id number], Tata Document Manager Francisca Guzman RDCS Procedure CPT: Indications: LV function, CHF Cardiac Hx: Technical Quality: Good Contrast 1: Total Dose (mL): Contrast 2: Total Dose (mL): MEASUREMENTS (Male / Female) Normal Values 2D ECHO LV Diastolic Diameter PLAX 4.7 cm 4.2 - 5.9 / 3.9 - 5.3 cm LV Systolic Diameter PLAX 3.2 cm IVS Diastolic Thickness 1.1 cm 0.6 - 1.0 / 0.6 - 0.9 cm LVPW Diastolic Thickness 0.9 cm 0.6 - 1.0 / 0.6 - 0.9 cm LV Relative Wall Thickness 0.4 LVOT Diameter 1.9 cm LV Diastolic Volume MOD BP 93.4 cm??? 67 - 155 / 56 - 104 cm??? LV Systolic Volume MOD BP 27.9 cm??? 22 - 58 / 19 - 49 cm??? LV Ejection Fraction MOD BP 70.2 % >= 55 % LV Cardiac Index MOD BP 2424.2 cm???/min???m??? LV Diastolic Volume MOD 4C 98.6 cm??? LV Systolic Volume MOD 4C 31.9 cm??? LV Ejection Fraction MOD 4C 67.6 % LV Cardiac Index MOD 4C 2467.3 cm???/min???m??? LV Diastolic Length 4C 6.8 cm LV Systolic Length 4C 5.4 cm LV Diastolic Volume MOD 2C 85.2 cm??? LV Systolic Volume MOD 2C 23.3 cm??? LV Ejection Fraction MOD 2C 72.7 % LV Cardiac Index MOD 2C 2293.2 cm???/min???m??? LV Diastolic Length 2C 7.0 cm LV Systolic Length 2C 5.1 cm LA Volume 98.7 cm??? 18 - 58 / 22 - 52 cm??? LA Volume Index 62.9 cm???/m??? 16 - 28 cm???/m??? Ascending Aorta Diameter 3.4 cm DOPPLER AV Peak Velocity 134.0 cm/s AV Peak Gradient 7.2 mmHg AV Mean Velocity 80.2 cm/s AV Mean Gradient 3.2 mmHg AV Velocity Time Integral 28.4 cm LVOT Peak Velocity 86.8 cm/s LVOT Peak Gradient 3.0 mmHg LVOT Velocity Time Integral 16.5 cm LVOT Stroke Volume 45.1 cm??? LVOT Stroke Volume Index 29.4 ml/m??? LVOT Cardiac Index 1667.1 cm???/min???m??? AV Area Cont Eq vti 1.6 cm??? AV Area Cont Eq pk 1.8 cm??? MV Peak Velocity 146.9 cm/s MV Peak Gradient 8.6 mmHg MV Mean Velocity 69.7 cm/s MV Mean Gradient 2.6 mmHg MV Velocity Time Integral 34.6 cm MV Area PHT 3.3 cm??? MR Peak Velocity 486.1 cm/s MR Peak Gradient 94.5 mmHg Mitral E Point Velocity 111.5 cm/s Mitral A Point Velocity 47.1 cm/s Mitral E to A Ratio 2.4 MV Deceleration Time 228.0 ms TR Peak Velocity 334.9 cm/s TR Peak Gradient 44.9 mmHg Right Atrial Pressure 5.0 mmHg Pulmonary Artery Systolic Pressu 49.9 mmHg Right Ventricular Systolic Press 49.9 mmHg PV Peak Velocity 79.2 cm/s PV Peak Gradient 2.5 mmHg FINDINGS Left Ventricle Left ventricular ejection fraction is estimated at 55-60 %. Mildly increased septal wall thickness. Left ventricular cavity size normal. No obvious regional wall motion abnormalities. Right Ventricle Normal right ventricular size and function. Moderate pulmonary hypertension. Right Atrium Severe right atrial dilatation. Left Atrium Severely increased left atrial volume. Mildly increased left atrial area. Mitral Valve Mitral annular calcification. Mitral valve thickened. No evidence for mitral valve prolapse. Minimal mitral stenosis. Moderate to severe concentric mitral regurgitation. Multiple jets of mitral regurgitation Systolic flow reversal in the pulmonary veins. Aortic Valve Trileaflet aortic valve. Aortic valve sclerosis. No aortic stenosis. Mild aortic regurgitation. Tricuspid Valve Structurally normal tricuspid valve. No tricuspid stenosis. Moderate tricuspid regurgitation. Pulmonic Valve Structurally normal pulmonic valve. No pulmonic stenosis. No pulmonic regurgitation. Pericardium Minimal pericardial effusion (normal variant). Aorta Normal size aortic root and proximal ascending aorta. CONCLUSIONS Normal LV size and systolic function with severe mitral regurgitation eccentric and also central with multiple jets. Moderate pulmonary hypertension. Moderate tricuspid regurgitation No aortic stenosis. No significant pericardial effusion Previewed by: Dr. Christiano Klein MD (Electronically Signed) Final Date: 04 September 2024 12:05
--- NOTE | 2024-09-04 13:56 | P.PN ---
Subjective Progress Note Date: 09/04/24 This is a 84-year-old female admitted with altered mental status changes, acute hypoxic respiratory failure and multiple other medical issues. Evaluated by neurology, neuro workup in progress. Keppra initiated yesterday, no seizure activity reported. reported EEG completed this morning, results pending, MRI and echo pending. Patient does not recognize PCP. Speech is slow ,family reports patient mixing up words and short of breath. Maintaining O2 sats of high 90s to 100% on 2 L nasal cannula. Ultrasound performed yesterday reported large bilateral pleural effusions both marked for possible thoracentesis,left greater than right; anticoagulated on Eliquis. Diuresing on Lasix IV push. blood pressure soft this morning. Bicarb 29, BUN 39, creatinine 1.36. On admission BNP 14,100, currently 17,500. Objective - Vital Signs Vital signs: Vital Signs Temp 96.9 F L 09/04/24 08:00 Pulse 62 09/04/24 08:00 Resp 18 09/04/24 08:00 BP 97/55 09/04/24 08:00 Pulse Ox 100 09/04/24 08:00 FiO2 Intake & Output 09/03/24 09/04/24 09/04/24 18:59 06:59 18:59 Intake Total 120 Balance 120 Intake: Oral 120 Other: Voiding Method External Catheter - Exam GENERAL: Fatigued, sleepy ,alert and oriented x1, NAD, speaking softly and slow HEENT: Normocephalic, atraumatic, pupils are round and equal, positive conjunctival pallor. CARDIOVASCULAR: S1 and S2 present. No murmurs, rubs, or gallops. PULMONARY: Unlabored at rest, equal air entry, fine bibasilar crackles ABDOMEN: Soft, nontender, nondistended, normoactive bowel sounds. No palpable organomegaly. EXTREMITIES: No cyanosis, clubbing, or pedal edema. NEUROLOGICAL: Gross neurological examination did not reveal any focal deficits. SKIN: Warm and dry, no rashes. - Labs CBC & Chem 7: 09/04/24 07:13 09/04/24 07:13 Labs: Abnormal Lab Results - Last 24 Hours (Table) 09/03/24 09/04/24 09/04/24 Range/Units 18:19 07:13 07:13 WBC 13.7 H (3.8-10.6) k/uL RBC 3.75 L (3.80-5.40) m/uL Hgb 8.2 L (11.4-16.0) gm/dL Hct 31.4 L (34.0-46.0) % MCH 21.8 L (25.0-35.0) pg MCHC 26.1 L (31.0-37.0) g/dL RDW 21.6 H (11.5-15.5) % Plt Count 139 L (150-450) k/uL Neutrophils # 10.7 H (1.3-7.7) k/uL Monocytes # 1.1 H (0-1.0) k/uL Potassium 3.3 L (3.5-5.1) mmol/L BUN 39 H (7-17) mg/dL Creatinine 1.36 H (0.52-1.04) mg/dL Total Protein 5.8 L (6.3-8.2) g/dL Albumin 2.9 L (3.5-5.0) g/dL TSH 0.041 L (0.465-4.680) mIU/L Free T4 2.34 H (0.78-2.19) ng/dL Assessment and Plan Assessment: Altered mental status, accompanied by acute encephalopathy, etiology unclear, ruling out seizure or CVA. Neurowork-up in progress. Acute hypoxic respiratory failure secondary to bilateral pleural effusions Acute on chronic CHF, systolic dysfunction EF 40 to 45% Persistent atrial fibrillation with controlled ventricular rate, anticoagulated with Eliquis Chronic kidney disease stage III-IV Elevated troponin, minimal, secondary to CKD Hypertension Possible vascular dementia Plan: Continue on current medication regimen ,monitoring and symptomatic treatment. BNP increasing on Lasix IV push. Large bilateral pleural effusions both marked for potential thoracentesis-currently on Eliquis. Neurowork-up in progress. UA with micro ordered. The impression and plan of care has been dictated as directed. : I performed a history and examination of this patient, discussed the same with the dictator. I agree with the dictator's note ,documented as a scribe. Any additional findings or plans will be noted.
[2024-09-04] MEDS: POTASSIUM CHLORIDE ER 20 MEQ TAB.ER PO STA (15:07)
[2024-09-04 15:25] LABS: Appearance,Urine Clear (Clear); Bilirubin,Urine Negative (Negative); Blood,Urine Negative (Negative); Color,Urine Light Yellow; Glucose,Urine (UA) Negative (Negative); Hyaline Casts,Urine 157 /lpf (0-2); Ketones,Urine Negative (Negative); Leukocyte Esterase,Urine Small (Negative); Mucus,Urine Few /hpf; Nitrite,Urine Negative (Negative); Protein,Urine Negative (Negative); RBC,Urine 3 /hpf (0-5); Specific Gravity,Urine 1.011 (1.001-1.035); Squamous Epithelial Cell,Urine 2 /hpf (0-4); Urobilinogen,Urine <2.0 mg/dL (<2.0); WBC,Urine 7 /hpf (0-5)
--- NOTE | 2024-09-04 16:51 | P.PN ---
Subjective Progress Note Date: 09/04/24 Principal diagnosis: Mental status changes. This is an 84-year-old female patient with a known history of relation anticoagulated with Eliquis, CVA/TIA, congestive heart failure, chronic kidney disease, anemia, hypothyroidism, chronic and ongoing tobacco dependence who was brought into the emergency room yesterday for confusion and altered mental status according to her family members who are present. Some progressive weakness and poor appetite over the past couple of days. CT scan of the brain revealed no acute intracranial process. Chest x-ray reveals cardiomegaly and a large left and small right pleural effusions suggestive of pulmonary edema. White count 9.4. Hemoglobin 8.8. Platelets 187. INR 1.4. Sodium 144. Potassium 3.9. Bicarb 33. BUN 36. Creatinine 1.37. Glucose 123. Troponin 0.054, 0.038. proBNP 14,100. Urinalysis clean. Drug screen clean. Viral screen negative. She is seen today in consultation in the emergency department. She is currently resting on a stretcher. Awake but very weak and slow to respond. She is maintaining O2 saturations in the mid 90s on 2 L/min per nasal cannula. She is afebrile. Hemodynamically stable. Progress note dated September 04, 2024. 84-year-old female seen today in room 363. She was admitted with a diagnosis of mental status changes. We were consulted on this patient for bilateral effusions. The patient is currently on 2 L of oxygen. Saturations are 100%. She is not receiving any IV fluids. The effusion on the right is about 6 cm in size and the effusion on the left is 9 cm in size. She is receiving IV diuretics. White count is 13.7, hemoglobin 8.2, hematocrit 31.4, platelet count 139,000. Sodium 141, potassium 3.3, chlorides 104, CO2 29, BUN 39, and creatinine 1.36. The patient's N-terminal proBNP is 17,500. Objective - Vital Signs Vital signs: Vital Signs Temp 96.9 F L 09/04/24 08:00 Pulse 64 09/04/24 15:08 Resp 18 09/04/24 15:08 BP 113/69 09/04/24 15:08 Pulse Ox 99 09/04/24 15:08 FiO2 Intake & Output 09/03/24 09/04/24 09/04/24 18:59 06:59 18:59 Intake Total 120 Balance 120 Intake: Oral 120 Other: Voiding Method External Catheter - Exam No acute distress, oriented 3. The patient is currently on 2 L of oxygen, with saturations of 100%. HEENT examination is grossly unremarkable. Mucous membranes are moist. No oral lesions. Neck supple. Full range of motion. No adenopathy thyromegaly or neck vein distention. Cardiovascular examination reveals regular rhythm rate. S1-S2 normal. No S3 or S4. No discernible murmur noted. Lungs reveal basilar crackles. No wheezes or rhonchi. Breath sounds are equal. Abdomen soft bowel sounds are heard. No masses or tenderness. Extremities are intact. No cyanosis clubbing or edema. Skin is without rash or lesion. Neurologic examination is brief but nonfocal. - Labs CBC & Chem 7: 09/04/24 07:13 09/04/24 07:13 Labs: Abnormal Lab Results - Last 24 Hours (Table) 09/03/24 09/04/24 09/04/24 Range/Units 18:19 07:13 07:13 WBC 13.7 H (3.8-10.6) k/uL RBC 3.75 L (3.80-5.40) m/uL Hgb 8.2 L (11.4-16.0) gm/dL Hct 31.4 L (34.0-46.0) % MCH 21.8 L (25.0-35.0) pg MCHC 26.1 L (31.0-37.0) g/dL RDW 21.6 H (11.5-15.5) % Plt Count 139 L (150-450) k/uL Neutrophils # 10.7 H (1.3-7.7) k/uL Monocytes # 1.1 H (0-1.0) k/uL Potassium 3.3 L (3.5-5.1) mmol/L BUN 39 H (7-17) mg/dL Creatinine 1.36 H (0.52-1.04) mg/dL Total Protein 5.8 L (6.3-8.2) g/dL Albumin 2.9 L (3.5-5.0) g/dL TSH 0.041 L (0.465-4.680) mIU/L Free T4 2.34 H (0.78-2.19) ng/dL Ur Leukocyte Esterase (Negative) Urine WBC (0-5) /hpf Hyaline Casts (0-2) /lpf Urine Mucus (None) /hpf 09/04/24 Range/Units 15:05 WBC (3.8-10.6) k/uL RBC (3.80-5.40) m/uL Hgb (11.4-16.0) gm/dL Hct (34.0-46.0) % MCH (25.0-35.0) pg MCHC (31.0-37.0) g/dL RDW (11.5-15.5) % Plt Count (150-450) k/uL Neutrophils # (1.3-7.7) k/uL Monocytes # (0-1.0) k/uL Potassium (3.5-5.1) mmol/L BUN (7-17) mg/dL Creatinine (0.52-1.04) mg/dL Total Protein (6.3-8.2) g/dL Albumin (3.5-5.0) g/dL TSH (0.465-4.680) mIU/L Free T4 (0.78-2.19) ng/dL Ur Leukocyte Esterase Small H (Negative) Urine WBC 7 H (0-5) /hpf Hyaline Casts 157 H (0-2) /lpf Urine Mucus Few H (None) /hpf Assessment and Plan Assessment: Altered mental status of unclear etiology. Acute hypoxic respiratory failure secondary to bilateral pleural effusions left greater than right. Atrial fibrillation, anticoagulated with Eliquis. Acute on chronic anemia. Acute kidney injury. Troponin leak. History of hypertension. Hyperlipidemia. Hypothyroidism. Chronic kidney disease. Plan: Plan dated September 04, 2024. The patient is seen today in room 363. I explained to the family, that at this time, the patient is currently on diuretics, and hopefully that will improve the bilateral pleural effusions. The the effusions are moderate in size, but the 1 on the right being 6 cm of the one of the left 9 cm. She is at 100% on 2 L. She is not receiving any IV fluids. She continues on IV diuretics. Labs, x- rays, and medications are reviewed. We will continue to follow the patient, make recommendations in regard to thoracentesis as the week progresses. She is on Eliquis at this time, and that will have to be discontinued for 2 days prior to any procedure. Time with Patient: Less than 30
--- NOTE | 2024-09-04 17:28 | P.PN ---
Subjective Progress Note Date: 09/04/24 I am following-up with the patient and per the and her children who are at bedside, since she was started on Keppra she is more sleepy. Still pending MRI Brain. Objective - Vital Signs Vital signs: Vital Signs Temp 96.9 F L 09/04/24 08:00 Pulse 64 09/04/24 15:08 Resp 18 09/04/24 15:08 BP 113/69 09/04/24 15:08 Pulse Ox 99 09/04/24 15:08 FiO2 Intake & Output 09/03/24 09/04/24 09/04/24 18:59 06:59 18:59 Intake Total 120 Balance 120 Intake: Oral 120 Other: Voiding Method External Catheter - Exam General: Lying in bed and is not in acute distress. Neuro: Limited. She is moderate to severely drowsy but is awakeable to voice. She is oriented to self. She is following simple commands. No facial weakness. No dysarthria from limited language. Motor: Strength is hard to assess because of her cooperation. Some of the workup during this hospital visit consisted of: Creatinine is 1.35, BUN is 36 Troponin is 0.054 and most recent troponin is 0.038 Vitamin B12: 433 TSH: 0.041 and free T4: 2.34 Ammonia <9 CT of the head is reported as no acute intracranial process. I personally reviewed the CT and agree with the report. 2D echo was reported as normal left atrial size systolic function with severe mitral regurgitation. Moderate pulmonary hypertension. Moderate tricuspid regurgitation - Labs CBC & Chem 7: 09/04/24 07:13 09/04/24 07:13 Labs: Abnormal Lab Results - Last 24 Hours (Table) 09/03/24 09/04/24 09/04/24 Range/Units 18:19 07:13 07:13 WBC 13.7 H (3.8-10.6) k/uL RBC 3.75 L (3.80-5.40) m/uL Hgb 8.2 L (11.4-16.0) gm/dL Hct 31.4 L (34.0-46.0) % MCH 21.8 L (25.0-35.0) pg MCHC 26.1 L (31.0-37.0) g/dL RDW 21.6 H (11.5-15.5) % Plt Count 139 L (150-450) k/uL Neutrophils # 10.7 H (1.3-7.7) k/uL Monocytes # 1.1 H (0-1.0) k/uL Potassium 3.3 L (3.5-5.1) mmol/L BUN 39 H (7-17) mg/dL Creatinine 1.36 H (0.52-1.04) mg/dL Total Protein 5.8 L (6.3-8.2) g/dL Albumin 2.9 L (3.5-5.0) g/dL TSH 0.041 L (0.465-4.680) mIU/L Free T4 2.34 H (0.78-2.19) ng/dL Ur Leukocyte Esterase (Negative) Urine WBC (0-5) /hpf Hyaline Casts (0-2) /lpf Urine Mucus (None) /hpf 09/04/24 Range/Units 15:05 WBC (3.8-10.6) k/uL RBC (3.80-5.40) m/uL Hgb (11.4-16.0) gm/dL Hct (34.0-46.0) % MCH (25.0-35.0) pg MCHC (31.0-37.0) g/dL RDW (11.5-15.5) % Plt Count (150-450) k/uL Neutrophils # (1.3-7.7) k/uL Monocytes # (0-1.0) k/uL Potassium (3.5-5.1) mmol/L BUN (7-17) mg/dL Creatinine (0.52-1.04) mg/dL Total Protein (6.3-8.2) g/dL Albumin (3.5-5.0) g/dL TSH (0.465-4.680) mIU/L Free T4 (0.78-2.19) ng/dL Ur Leukocyte Esterase Small H (Negative) Urine WBC 7 H (0-5) /hpf Hyaline Casts 157 H (0-2) /lpf Urine Mucus Few H (None) /hpf Assessment and Plan Assessment: This is an 84-year-old man who presents emergency department because of episode of confusion and according to she had head shaking lasting for 2 minutes then afterwards she was somewhat confused and the was concerned seems like a seizure. She does not have any history of stroke. Episode of head shaking with confusion: Unknown exact etiology of encephalopathy. One of the differential is seizure. Rule out stroke--today is more sleepy and unsure if due to medication effect (Keppra). Severe mitral regurgitation. Respiratory distress and probable due to severe Pulmonary hypertension Moderate tricuspid regurgitation Slightly elevated troponin History of stroke/TIA according to medical record but patient and her do not remember that she had a stroke. History of atrial fibrillation on Eliquis Hypertension History of congestive heart failure Chronic kidney insufficiency Hypothyroidism Chronic tobacco use Plan: EEG is completed and if negative for seizure or discharges, the family would like to discontinue Keppra. Pending MRi Brain. Patient has abnormal thyroid level and will defer the management to primary team Keppra 500 mg twice a day that was started yesterday. Seizure precautions seizure pads Cardiology is on board Pulmonary team is on board and they are consulted for pulmonary edema Patient is on Eliquis 2.5 mg twice daily her home dose. Will defer the rest of the medical management to primary other specialist. The plan is discussed with her and children who are at bedside. Time with Patient: Less than 30
--- NOTE | 2024-09-04 19:10 | P.PN ---
Subjective Patient is resting comfortably in bed No undue shortness of breath but according to the daughter when she starts talking she is short of breath No chest discomfort On pulmonary evaluation his 2D echo shows preserved systolic function. Pr eviously it was 40 to 45% but upon my inspection the ejection fraction is 55 to 60% at this time. She does have an eccentric moderate to severe mitral regurgitation on echo Blood pressure well-controlled Impression Bilateral pleural effusions History of congestive heart failure with reduced systolic function Now her left ventricular ejection fraction is improved Persistent atrial fibrillation with controlled ventricular response Eccentric moderate to severe mitral regurgitation with left atrial enlargement Chronic kidney disease Minimally elevated troponin secondary to CKD Hypertension Impression Switch to p.o. Lasix Continue Eliquis continue cardiac medications Objective - Vital Signs Vital signs: Vital Signs Temp 96.9 F L 09/04/24 08:00 Pulse 64 09/04/24 15:08 Resp 18 09/04/24 15:08 BP 113/69 09/04/24 15:08 Pulse Ox 99 09/04/24 15:08 FiO2 Intake & Output 09/04/24 09/04/24 09/05/24 06:59 18:59 06:59 Intake Total 230 Balance 230 Intake: Oral 230 Other: Voiding Method External Catheter - Labs CBC & Chem 7: 09/04/24 07:13 09/04/24 07:13 Labs: Abnormal Lab Results - Last 24 Hours (Table) 09/03/24 09/04/24 09/04/24 Range/Units 18:19 07:13 07:13 WBC 13.7 H (3.8-10.6) k/uL RBC 3.75 L (3.80-5.40) m/uL Hgb 8.2 L (11.4-16.0) gm/dL Hct 31.4 L (34.0-46.0) % MCH 21.8 L (25.0-35.0) pg MCHC 26.1 L (31.0-37.0) g/dL RDW 21.6 H (11.5-15.5) % Plt Count 139 L (150-450) k/uL Neutrophils # 10.7 H (1.3-7.7) k/uL Monocytes # 1.1 H (0-1.0) k/uL Potassium 3.3 L (3.5-5.1) mmol/L BUN 39 H (7-17) mg/dL Creatinine 1.36 H (0.52-1.04) mg/dL Total Protein 5.8 L (6.3-8.2) g/dL Albumin 2.9 L (3.5-5.0) g/dL TSH 0.041 L (0.465-4.680) mIU/L Free T4 2.34 H (0.78-2.19) ng/dL Ur Leukocyte Esterase (Negative) Urine WBC (0-5) /hpf Hyaline Casts (0-2) /lpf Urine Mucus (None) /hpf 09/04/24 Range/Units 15:05 WBC (3.8-10.6) k/uL RBC (3.80-5.40) m/uL Hgb (11.4-16.0) gm/dL Hct (34.0-46.0) % MCH (25.0-35.0) pg MCHC (31.0-37.0) g/dL RDW (11.5-15.5) % Plt Count (150-450) k/uL Neutrophils # (1.3-7.7) k/uL Monocytes # (0-1.0) k/uL Potassium (3.5-5.1) mmol/L BUN (7-17) mg/dL Creatinine (0.52-1.04) mg/dL Total Protein (6.3-8.2) g/dL Albumin (3.5-5.0) g/dL TSH (0.465-4.680) mIU/L Free T4 (0.78-2.19) ng/dL Ur Leukocyte Esterase Small H (Negative) Urine WBC 7 H (0-5) /hpf Hyaline Casts 157 H (0-2) /lpf Urine Mucus Few H (None) /hpf
--- NOTE | 2024-09-04 20:11 | EEG ---
ELECTROENCEPHALOGRAM REPORT CLINICAL HISTORY: This is an 84-year-old woman with altered mental status. The video EEG is obtained to evaluate for seizure epileptiform activity. RELEVANT MEDICATION: Keppra. EEG TYPE: This is a routine 21-channel EEG with video using the 10/20 electrode placement system. DESCRIPTION: Wakefulness and drowsiness are obtained. During awake state, the background consists of [id number] voltage of 4.5 to 5 hertz activity. There was no physiological stage 2 sleep architecture. There is no focal slowing. Interictal and ictal is none. ACTIVATION PROCEDURE: Photic stimulation did not evoke a posterior driving response. There is no abnormality during the photic stimulation. Hyperventilation is not performed. CLINICAL INTERPRETATION: This is an abnormal routine EEG. The background slowing is suggestive of moderate to severe encephalopathy. Otherwise, there is no focal slowing, epileptiform discharge, or seizure on the EEG. Clinical correlation is recommended. BLADIMIR / VINNIE: [id number] /
[2024-09-05 08:01] LABS: Anisocytosis Moderate; Basophils % (A) 0 %; Eosinophils # (A) 0.1 k/uL (0-0.7); Eosinophils % (A) 1 %; HCT 29.9 % (34.0-46.0); HGB 7.9 gm/dL (11.4-16.0); Hypochromasia Marked; Lymphocytes # (A) 1.7 k/uL (1.0-4.8); Lymphocytes % (A) 14 %; MCH 21.6 pg (25.0-35.0); MCHC 26.4 g/dL (31.0-37.0); MCV 82.1 fL (80.0-100.0); Mean Platelet Volume 8.4; Microcytosis Slight; Monocytes # (A) 0.7 k/uL (0-1.0); Monocytes % (A) 6 %; Neutrophils # (A) 9.9 k/uL (1.3-7.7); Neutrophils % (A) 78 %; Platelet Count 153 k/uL (150-450); Poikilocytosis Slight; RBC 3.64 m/uL (3.80-5.40); RDW 22.3 % (11.5-15.5); WBC 12.7 k/uL (3.8-10.6)
[2024-09-05 08:16] LABS: African American GFR (CKD) 39 (>60 ml/min/1.73 sqM); Anion Gap 6 mmol/L; Blood Urea Nitrogen 44 mg/dL (7-17); Calcium 8.5 mg/dL (8.4-10.2); Carbon Dioxide 28 mmol/L (22-30); Chloride 106 mmol/L (98-107); Glucose 113 mg/dL (74-99); Magnesium 2.1 mg/dL (1.6-2.3); Non-African American GFR(CKD) 34 (>60 ml/min/1.73 sqM); Sodium 140 mmol/L (137-145)
--- NOTE | 2024-09-05 10:27 | MR ---
EXAMINATION TYPE: MR brain wo con DATE OF EXAM: 09/05/2024 10:17 AM COMPARISON: 09/02/2024. CLINICAL INDICATION: Female, 84 years old with history of confusion unknown; PHH, Confusion TECHNIQUE: Multi planar, multi sequence imaging was performed through the brain including: T1, T2, In version recovery, Diffusion weighted imaging, and gradient echo imaging. No gadolinium was given. FINDINGS: Tiny focus of T2 changes which is high and DWI and ADC signal within the right parietal/occ ipital region. Additional area of T2 shine through in the left frontal lobe. Encephalomalacia of the right occipital lobe with high FLAIR signal compatible with gliosis. Additional remote injury of the left cerebellar hemisphere with encephalomalacia and gliosis. Mild cerebral atrophy with proportional dilation of ventricular system. Scattered foci of high T2 signal intensity are seen within the per iventricular white matter. Midline structures show no abnormality. Diffusion-weighted imaging shows n o evidence of restricted diffusion. The susceptibility weighted images do not reveal any evidence for micro-hemorrhage. The bone marrow signal is within normal limits. Paranasal sinuses and mastoid air cells: No significant paranasal sinus disease. Visualized orbits: Orbital contents are intact. IMPRESSION: 1. No evidence of intracranial mass or acute/subacute infarct. 2. Remote right occipital lobe and left cerebellum with encephalomalacia and gliosis.. Nonspecific wh ite matter changes, likely secondary to small vessel ischemic disease. [facility], , 09/05/2024 10:25 AM
[2024-09-05] MEDS: LEVOTHYROXINE 25 MCG TAB PO ONE (11:20)
--- NOTE | 2024-09-05 11:51 | P.PN ---
Subjective HISTORY OF PRESENT ILLNESS: This is a 84-year-old female with a past medical history significant for hypertension, hyperlipidemia, atrial fibrillation, and hypothyroidism. Patient follows in the office with Dr. Sexton. We have been asked to see the patient in consultation for elevated troponins and CHF. Patient examined at the bedside in the emergency room. Patient's daughters present. Patient's mentation appears altered and she is unable to give much history. The patient's daughter states that the patient was at home and became very confused. She states that she began shaking her head involuntarily and also bit her tongue. She states that it looked as though her mom had a seizure. She states she does not have a history of seizures. The patient currently denies chest pain or pressure. Denies shortness of breath. Bedside telemetry reveals atrial fibrillation with controlled ventricular rate. DIAGNOSTICS: - EKG reveals A-fib with controlled ventricular rate - Chest xray cardiomegaly, large left and small right pleural effusion suggesting pulmonary edema - CT brain: Negative for acute process - Laboratory data: WBC 9.4. Hemoglobin 8.8. Platelet count 182. Sodium 144. Potassium 3.9. BUN 36. Creatinine 1.35. Troponin 0.054. - Current home cardiac medications include Pravachol 10 mg at night, Lasix 40 mg twice a day, metoprolol succinate 50 mg daily, and Eliquis 5 mg twice a day - Most recent echocardiogram obtained in January 2023 revealed ejection fraction 40 to 45%, global hypokinesis, severe pulm hypertension, severe mitral regurgitation, moderate tricuspid regurgitation - Lexiscan stress test completed in the office in September 2022 was negative for ischemia 09/05/2024 Patient examined this morning the bedside. Patient denies chest pain or pressure. She denies shortness of breath. Patient remains on IV Lasix. She remains in atrial fibrillation with controlled ventricular rate. PHYSICAL EXAM: VITAL SIGNS: Reviewed. GENERAL: Well-developed in no acute distress. HEENT: Head is normocephalic. Pupils are equal, round. Sclerae anicteric. Mucous membranes of the mouth are moist. Neck supple. No JVD or thyromegaly LUNGS: Respirations even and unlabored. Lungs essentially clear to auscultation bilaterally, diminished. HEART: Irregular rate and rhythm. S1 and S2 heard. Systolic murmur noted ABDOMEN: Soft. Nondistended. Nontender. EXTREMITIES: Normal range of motion. No clubbing or cyanosis. Peripheral pulses intact. No lower extremity edema NEUROLOGIC: Slightly lethargic. ASSESSMENT: Altered mental status with episode of involuntary shaking/jerking, rule out seizure Large left and small right pleural effusion Acute on chronic heart failure with improved, 40 to 45% previously now 55 to 60% Persistent atrial fibrillation with controlled ventricular rate Chronic kidney disease Minimally elevated troponins, likely secondary to CKD, no evidence of myocardial injury or ischemia Hypertension Hyperlipidemia PLAN: Discontinue IV Lasix. Begin oral Lasix 40 mg twice a day Continue additional cardiac medications Patient is currently stable from a cardiac standpoint with no further inpatient recommendations We will sign off. Please reconsult if needed. Nurse practitioner note has been reviewed by physician. Signing provider agrees with the documented findings, assessment, and plan of care documented by COMPENSATION ADJUSTER as a scribe. Objective - Vital Signs Vital signs: Vital Signs Temp 97.3 F L 09/05/24 11:08 Pulse 64 09/05/24 11:08 Resp 16 09/05/24 11:08 BP 107/69 09/05/24 11:08 Pulse Ox 93 L 09/05/24 11:08 FiO2 Intake & Output 09/04/24 09/05/24 09/05/24 18:59 06:59 18:59 Intake Total 230 20 110 Output Total 400 Balance 230 -380 110 Weight 57.5 kg Intake: IV 20 Invasive Line 2 20 Oral 230 110 Output: Urine 400 Other: Voiding Method External Catheter External Catheter # Voids 1 - Labs CBC & Chem 7: 09/05/24 07:08 09/05/24 07:08 Labs: Abnormal Lab Results - Last 24 Hours (Table) 09/04/24 09/05/24 09/05/24 Range/Units 15:05 07:08 07:08 WBC 12.7 H (3.8-10.6) k/uL RBC 3.64 L (3.80-5.40) m/uL Hgb 7.9 L (11.4-16.0) gm/dL Hct 29.9 L (34.0-46.0) % MCH 21.6 L (25.0-35.0) pg MCHC 26.4 L (31.0-37.0) g/dL RDW 22.3 H (11.5-15.5) % Neutrophils # 9.9 H (1.3-7.7) k/uL BUN 44 H (7-17) mg/dL Creatinine 1.42 H (0.52-1.04) mg/dL Glucose 113 H (74-99) mg/dL Ur Leukocyte Esterase Small H (Negative) Urine WBC 7 H (0-5) /hpf Hyaline Casts 157 H (0-2) /lpf Urine Mucus Few H (None) /hpf
--- NOTE | 2024-09-05 14:17 | P.PN ---
Subjective Progress Note Date: 09/05/24 Principal diagnosis: Mental status changes. This is an 84-year-old female patient with a known history of relation anticoagulated with Eliquis, CVA/TIA, congestive heart failure, chronic kidney disease, anemia, hypothyroidism, chronic and ongoing tobacco dependence who was brought into the emergency room yesterday for confusion and altered mental status according to her family members who are present. Some progressive weakness and poor appetite over the past couple of days. CT scan of the brain revealed no acute intracranial process. Chest x-ray reveals cardiomegaly and a large left and small right pleural effusions suggestive of pulmonary edema. White count 9.4. Hemoglobin 8.8. Platelets 187. INR 1.4. Sodium 144. Potassium 3.9. Bicarb 33. BUN 36. Creatinine 1.37. Glucose 123. Troponin 0.054, 0.038. proBNP 14,100. Urinalysis clean. Drug screen clean. Viral screen negative. She is seen today in consultation in the emergency department. She is currently resting on a stretcher. Awake but very weak and slow to respond. She is maintaining O2 saturations in the mid 90s on 2 L/min per nasal cannula. She is afebrile. Hemodynamically stable. Progress note dated September 04, 2024. 84-year-old female seen today in room 363. She was admitted with a diagnosis of mental status changes. We were consulted on this patient for bilateral effusions. The patient is currently on 2 L of oxygen. Saturations are 100%. She is not receiving any IV fluids. The effusion on the right is about 6 cm in size and the effusion on the left is 9 cm in size. She is receiving IV diuretics. White count is 13.7, hemoglobin 8.2, hematocrit 31.4, platelet count 139,000. Sodium 141, potassium 3.3, chlorides 104, CO2 29, BUN 39, and creatinine 1.36. The patient's N-terminal proBNP is 17,500. Progress note dated September 05, 2024. 84-year-old female seen today in room 363. The patient had an MRI of the brain today which showed no evidence of intracranial mass or acute/subacute infarct. There was remote right occipital lobe and left cerebellum with evidence of encephalomalacia, and gliosis. Currently, the patient is on 1 L of nasal oxygen, no IV fluids. The patient was stable, without acute abnormalities, and had an uneventful night, and was resting comfortably without any distress or difficulty. Today's labs include a white count of 12.7, hemoglobin 7.9, hematocrit 29.9, and a platelet count of 153,000. Sodium 140, potassium 4, chlorides 106, CO2 28, BUN 44, and creatinine 1.42. Glucose is 113. Calcium 8.5. Objective - Vital Signs Vital signs: Vital Signs Temp 97.3 F L 09/05/24 11:08 Pulse 64 09/05/24 13:11 Resp 16 09/05/24 11:08 BP 107/69 09/05/24 11:08 Pulse Ox 93 L 09/05/24 11:08 FiO2 Intake & Output 09/04/24 09/05/24 09/05/24 18:59 06:59 18:59 Intake Total 230 20 110 Output Total 400 50 Balance 230 -380 60 Weight 57.5 kg Intake: IV 20 Invasive Line 2 20 Oral 230 110 Output: Urine 400 50 Other: Voiding Method External Catheter External Catheter # Voids 1 - Exam No acute distress, oriented 3. The patient is currently on 1 L of oxygen, with saturations of 100%. HEENT examination is grossly unremarkable. Mucous membranes are moist. No oral lesions. Neck supple. Full range of motion. No adenopathy thyromegaly or neck vein distention. Cardiovascular examination reveals regular rhythm rate. S1-S2 normal. No S3 or S4. No discernible murmur noted. Lungs reveal basilar crackles. No wheezes or rhonchi. Breath sounds are equal. Abdomen soft bowel sounds are heard. No masses or tenderness. Extremities are intact. No cyanosis clubbing or edema. Skin is without rash or lesion. Neurologic examination is brief but nonfocal. - Labs CBC & Chem 7: 09/05/24 07:08 09/05/24 07:08 Labs: Abnormal Lab Results - Last 24 Hours (Table) 09/04/24 09/05/24 09/05/24 Range/Units 15:05 07:08 07:08 WBC 12.7 H (3.8-10.6) k/uL RBC 3.64 L (3.80-5.40) m/uL Hgb 7.9 L (11.4-16.0) gm/dL Hct 29.9 L (34.0-46.0) % MCH 21.6 L (25.0-35.0) pg MCHC 26.4 L (31.0-37.0) g/dL RDW 22.3 H (11.5-15.5) % Neutrophils # 9.9 H (1.3-7.7) k/uL BUN 44 H (7-17) mg/dL Creatinine 1.42 H (0.52-1.04) mg/dL Glucose 113 H (74-99) mg/dL Ur Leukocyte Esterase Small H (Negative) Urine WBC 7 H (0-5) /hpf Hyaline Casts 157 H (0-2) /lpf Urine Mucus Few H (None) /hpf Assessment and Plan Assessment: Altered mental status of unclear etiology. Acute hypoxic respiratory failure secondary to bilateral pleural effusions left greater than right. Atrial fibrillation, anticoagulated with Eliquis. Acute on chronic anemia. Acute kidney injury. Troponin leak. History of hypertension. Hyperlipidemia. Hypothyroidism. Chronic kidney disease. Plan: Plan dated September 04, 2024. The patient is seen today in room 363. I explained to the family, that at this time, the patient is currently on diuretics, and hopefully that will improve the bilateral pleural effusions. The the effusions are moderate in size, but the 1 on the right being 6 cm of the one of the left 9 cm. She is at 100% on 2 L. She is not receiving any IV fluids. She continues on IV diuretics. Labs, x- rays, and medications are reviewed. We will continue to follow the patient, make recommendations in regard to thoracentesis as the week progresses. She is on Eliquis at this time, and that will have to be discontinued for 2 days prior to any procedure. Plan dated September 05, 2024. The patient appears to be doing relatively well. The patient is currently on 1 L of oxygen. The MRI did not show anything acute or subacute today. There was some changes as mentioned above. Labs, x-rays, and medications are reviewed. We will continue to follow, and make recommendations along the way. Time with Patient: Less than 30
--- NOTE | 2024-09-05 15:03 | P.PN ---
Subjective Progress Note Date: 09/05/24 This is a 84-year-old female admitted with altered mental status changes, acute hypoxic respiratory failure and multiple other medical issues. Evaluated by neurology, neuro workup in progress. Keppra initiated yesterday, no seizure activity reported. reported EEG completed this morning, results pending, MRI and echo pending. Patient does not recognize PCP. Speech is slow ,family reports patient mixing up words and short of breath. Maintaining O2 sats of high 90s to 100% on 2 L nasal cannula. Ultrasound performed yesterday reported large bilateral pleural effusions both marked for possible thoracentesis,left greater than right; anticoagulated on Eliquis. Diuresing on Lasix IV push. blood pressure soft this morning. Bicarb 29, BUN 39, creatinine 1.36. On admission BNP 14,100, currently 17,500. 09/05/2024 require warming blanket to maintain axillary temperature 97.5. EEG completed reporting moderate to severe encephalopathy, no seizure activity. Keppra discontinued as per neurology, at family's request. Brain MRI reported no evidence of intracranial mass or acute/subacute infarct. Remote right occipital lobe and left cerebellum with encephalomalacia and miosis. Nonspecific white matter changes likely secondary to small vessel ischemic disease.Echo reported 6 normal LV function with severe mitral regurgitation, moderate pulmonary hypertension, moderate tricuspid regurgitation, No aortic stenosis, maintain O2 sats in the 90s on 1 L nasal cannula. Afebrile, WBC 12.7, hemoglobin 7.9, platelets 153. Electrolytes within normal limits. Renal function mildly worsened, BUN 44 creatinine 1.42. Diuretics converted from IV push to oral as per cardiology. Objective - Vital Signs Vital signs: Vital Signs Temp 97.3 F L 09/05/24 11:08 Pulse 64 09/05/24 13:11 Resp 16 09/05/24 11:08 BP 107/69 09/05/24 11:08 Pulse Ox 93 L 09/05/24 11:08 FiO2 Intake & Output 09/04/24 09/05/24 09/05/24 18:59 06:59 18:59 Intake Total 230 20 110 Output Total 400 50 Balance 230 -380 60 Weight 57.5 kg Intake: IV 20 Invasive Line 2 20 Oral 230 110 Output: Urine 400 50 Other: Voiding Method External Catheter External Catheter # Voids 1 - Exam GENERAL: Fatigued,alert and oriented x1, NAD, HEENT: Normocephalic, atraumatic, pupils are round and equal, positive conjunctival pallor. CARDIOVASCULAR: S1 and S2 present. No murmurs, rubs, or gallops. PULMONARY: Unlabored at rest, equal air entry, fine bibasilar crackles. ABDOMEN: Soft, nontender, nondistended, normoactive bowel sounds. No palpable organomegaly. EXTREMITIES: No cyanosis, clubbing, or pedal edema. NEUROLOGICAL: Gross neurological examination did not reveal any focal deficits. SKIN: Warm and dry, no rashes. - Labs CBC & Chem 7: 09/05/24 07:08 09/05/24 07:08 Labs: Abnormal Lab Results - Last 24 Hours (Table) 09/04/24 09/05/24 09/05/24 Range/Units 15:05 07:08 07:08 WBC 12.7 H (3.8-10.6) k/uL RBC 3.64 L (3.80-5.40) m/uL Hgb 7.9 L (11.4-16.0) gm/dL Hct 29.9 L (34.0-46.0) % MCH 21.6 L (25.0-35.0) pg MCHC 26.4 L (31.0-37.0) g/dL RDW 22.3 H (11.5-15.5) % Neutrophils # 9.9 H (1.3-7.7) k/uL BUN 44 H (7-17) mg/dL Creatinine 1.42 H (0.52-1.04) mg/dL Glucose 113 H (74-99) mg/dL Ur Leukocyte Esterase Small H (Negative) Urine WBC 7 H (0-5) /hpf Hyaline Casts 157 H (0-2) /lpf Urine Mucus Few H (None) /hpf Assessment and Plan Assessment: Altered mental status, accompanied by acute moderate encephalopathy, possibly metabolic , etiology unclear Acute hypoxic respiratory failure secondary to bilateral pleural effusions Acute on chronic CHF, systolic dysfunction EF 40 to 45% Persistent atrial fibrillation with controlled ventricular rate, anticoagulated with Eliquis Chronic kidney disease stage III-IV Elevated troponin, minimal, secondary to CKD Hypertension Hypothyroidism Possible vascular dementia Plan: Continue on current medication regimen ,monitoring and symptomatic treatment. Blood cultures ordered, infectious disease consulted regarding etiology unclear for encephalopathy, pulmonary following regarding bilateral pleural effusions with potential thoracentesis. Anticoagulated on Eliquis. The impression and plan of care has been dictated as directed. : I performed a history and examination of this patient, discussed the same with the dictator. I agree with the dictator's note ,documented as a scribe. Any additional findings or plans will be noted.
[2024-09-05] MEDS: PIPERACILLIN-TAZOBACTAM 3.375 GM in SODIUM CHLORIDE 0.9% 100 ML IVPB SCH (16:15)
--- NOTE | 2024-09-05 16:24 | XR ---
EXAMINATION TYPE: XR chest 1V portable DATE OF EXAM: 09/05/2024 4:20 PM COMPARISON: 09/02/2024 CLINICAL INDICATION: Female, 84 years old with history of Pneumonia, TECHNIQUE: XR chest 1V portable view(s) obtained. FINDINGS: The heart size is enlarged. The pulmonary vasculature is normal. There is a moderate left pleural effusion. Infiltrates present at the right base. Findings are simila r to comparison. IMPRESSION: 1. Moderate left pleural effusion, cardiomegaly, right lower lobe infiltrates, stable from comparison [facility] Ernestina Veloz, , 09/05/2024 4:22 PM
[2024-09-05] MEDS: FUROSEMIDE 40 MG TAB PO SCH (16:41)
--- NOTE | 2024-09-05 17:37 | P.PN ---
Subjective Progress Note Date: 09/05/24 I am following up with the patient and according to the family members she continues to be sleepy confused upon waking her up she will respond appropriately. The Keppra was discontinued yesterday. Patient daughter stated she was notified by the primary team that this could have been due to underlying possible pneumonia by her primary attending. Patient has hypothermia and she is on a bear hugger. Objective - Vital Signs Vital signs: Vital Signs Temp 97.4 F L 09/05/24 15:11 Pulse 65 09/05/24 15:10 Resp 16 09/05/24 15:10 BP 103/67 09/05/24 15:10 Pulse Ox 94 L 09/05/24 15:10 FiO2 Intake & Output 09/04/24 09/05/24 09/05/24 18:59 06:59 18:59 Intake Total 230 20 110 Output Total 400 50 Balance 230 -380 60 Weight 57.5 kg Intake: IV 20 Invasive Line 2 20 Oral 230 110 Output: Urine 400 50 Other: Voiding Method External Catheter External Catheter # Voids 1 - Exam General: Lying in bed and is not in acute distress. Neuro: Limited. She is moderate to severely drowsy but is awakeable to voice. She is oriented to self correctly stated she is in the hospital. She is following simple commands. No facial weakness. No dysarthria from limited language. Motor: Strength is hard to assess because of her cooperation. Some of the workup during this hospital visit consisted of: Creatinine is 1.35, BUN is 36. Creatinine is trending up to 1.42 Troponin is 0.054 and most recent troponin is 0.038 Vitamin B12: 433 TSH: 0.041 and free T4: 2.34 Ammonia <9 CT of the head is reported as no acute intracranial process. I personally reviewed the CT and agree with the report. 2D echo was reported as normal left atrial size systolic function with severe mitral regurgitation. Moderate pulmonary hypertension. Moderate tricuspid regurgitation MRI of the brain is reported as no evidence of intracranial mass or acute/subacute infarct. Remote right occipital lobe and left cerebellum with encephalomalacia and gliosis. EEG is abnormal. The background slowing is suggestive of moderate to severe encephalopathy. Otherwise there is no focal slowing, OptiForm discharge or seizure on the EEG. - Labs CBC & Chem 7: 09/05/24 07:08 09/05/24 07:08 Labs: Abnormal Lab Results - Last 24 Hours (Table) 09/05/24 09/05/24 Range/Units 07:08 07:08 WBC 12.7 H (3.8-10.6) k/uL RBC 3.64 L (3.80-5.40) m/uL Hgb 7.9 L (11.4-16.0) gm/dL Hct 29.9 L (34.0-46.0) % MCH 21.6 L (25.0-35.0) pg MCHC 26.4 L (31.0-37.0) g/dL RDW 22.3 H (11.5-15.5) % Neutrophils # 9.9 H (1.3-7.7) k/uL BUN 44 H (7-17) mg/dL Creatinine 1.42 H (0.52-1.04) mg/dL Glucose 113 H (74-99) mg/dL Assessment and Plan Assessment: This is an 84-year-old man who presents emergency department because of episode of confusion and according to she had head shaking lasting for 2 minutes then afterwards she was somewhat confused and the was concerned seems like a seizure. She does not have any history of stroke. Episode of confusion and hypothermia of unknown etiology rule out underlying infection. EEG is negative for any seizure discharges. MRI of the brain is negative for any acute or subacute stroke. Episode of head shaking with confusion: Unknown exact etiology of encephalopathy. Routine EEG was negative for any seizure discharges. I am concerned about underlying seizure because according to the family members she had staring off episode at times and had shaking but they want to hold off on any any antiseizure medication at this time. Severe mitral regurgitation. Respiratory distress and probable due to severe Pulmonary hypertension Moderate tricuspid regurgitation Slightly elevated troponin History of stroke/TIA according to medical record but patient and her do not remember that she had a stroke. History of atrial fibrillation on Eliquis Hypertension History of congestive heart failure Chronic kidney insufficiency Hypothyroidism Chronic tobacco use Plan: Family still wants the antiseizure to be placed on hold and they felt the Keppra that was started this hospital visit might have been contributing to her confusion but was discontinued and she continues to be confused. She continues to be confused down the line will get a repeat EEG and will consider placing her on Vimpat 50 mg twice daily. ID team is on board. If unknown cause of her confusion consider lumbar puncture. Patient has abnormal thyroid level and will defer the management to primary team Seizure precautions seizure pads Cardiology is on board Pulmonary team is on board and they are consulted for pulmonary edema Patient is on Eliquis 2.5 mg twice daily her home dose. Will defer the rest of the medical management to primary other specialist. The plan is discussed with her and children who are at bedside. Time with Patient: Less than 30
--- NOTE | 2024-09-05 22:58 | P.CONS ---
History of Present Illness - Reason for Consult Consult date: 09/05/24 Encephalopathy etiology unclear Requesting physician: Connie Kern - Chief Complaint Weakness x few days - History of Present Illness Patient is a 84-year-old female with a past medical history significant for hypertension hyperlipidemia osteoarthritis heart failure atrial fibrillation patient has been brought into the hospital 3 days ago after the patient seem to have more confusion that was going on for a day or 2 before the patient was brought into the hospital patient apparently did have decreased appetite, patient on presentation to the hospital was afebrile subsequently patient noted to have hypothermia for which I warming blanket has been applied patient did not have any tachycardia or hypotension mild hypoxemia currently on room 1 L nasal cannula oxygen patient did have normal white count admission however white count is trending up over the last 2 days with a white count of 12.7 today with a left shift BUN and creatinine has been mildly elevated liver enzymes are normal initial UA was negative repeat in yesterday mildly positive patient urine drug screen was negative tested negative for influenza RSV and COVID patient did have a chest x-ray on admission cardiomegaly large left and small right effusion suggesting pulmonary edema did have a chest ultrasound large bilateral effusion both more for possible thoracocentesis patient also have an MRI of the brain no evidence for intracranial mass with the patient becoming more lethargic hypothermic and concern for possible sepsis blood culture were drawn infectious disease was consulted for further management patient is very hard of hearing but arousable with nonspecific denies having any headache patient has been complaining of some shortness of breath and a cough which is congested patient not able to bring up any sputum and apparently the patient did have some choking on the food no nausea vomiting or diarrhea has been reported Review of Systems Positive point and negatives has been mentioned in the HPI, complete review of systems was performed and all other systems are negative Past Medical History Past Medical History: Atrial Fibrillation, Heart Failure, CVA/TIA, Eye Disorder, Hyperlipidemia, Hypertension, Osteoarthritis (OA), Renal Disease, Thyroid Disorder Additional Past Medical History / Comment(s): frequent Vertigo, macular degeneration, anemia, recent blood transfusion on Sun., on & off N/V for 3 weeks, emphysema, chronic kidney disease, TIA-s-no deficits per daughter, bout of CHF about a year ago but hasn't had any recent problems per daughter, osteoporosis, currently has 3 compression fx.'s in back History of Any Multi-Drug Resistant Organisms: None Reported Past Surgical History: Appendectomy, Section, Cholecystectomy Additional Past Surgical History / Comment(s): breast biopsy in 1986 pt stated "it turned out to be an absess." C/S x5 Past Anesthesia/Blood Transfusion Reactions: No Reported Reaction Additional Past Anesthesia/Blood Transfusion Reaction / Comm: no transfusion reactions Past Psychological History: No Psychological Hx Reported Smoking Status: Current every day smoker - Past Family History Mother Family Medical History: Cancer Additional Family Medical History / Comment(s): Gallbladder cancer Father Family Medical History: Myocardial Infarction ([place]) Medications and Allergies Home Medications Medication Instructions Recorded Confirmed Type Pravastatin Sodium [Pravachol] 10 mg PO HS 06/08/20 09/02/24 History Metoprolol Succinate [Toprol XL] 50 mg PO DAILY #90 tab 01/26/23 09/02/24 Rx Apixaban [Eliquis] 5 mg PO BID-W/MEALS 07/09/24 09/02/24 History Donepezil [Aricept] 10 mg PO HS 09/02/24 09/02/24 History Furosemide [Lasix] 40 mg PO BID-W/MEALS 09/02/24 09/02/24 History Iron (Unknown Dose) 2 tab PO DAILY 09/02/24 09/02/24 History Levothyroxine Sodium [Tirosint] 100 mcg PO DAILY 09/02/24 09/02/24 History Potassium Chloride ER [K-Dur 20] 20 meq PO DAILY 09/02/24 09/02/24 History Vit C/E/Zn/Coppr/Lutein/Zeaxan 1 cap PO BID-W/MEALS 09/02/24 09/02/24 History [Preservision Areds 2 Softgel] Allergies Allergy/AdvReac Type Severity Reaction Status Date / Time No Known Allergies Allergy Verified 09/02/24 15:30 Physical Exam Vitals: Vital Signs Temp Pulse Resp BP Pulse Ox 09/05/24 20:00 97.8 F 58 L 16 100/65 96 09/05/24 18:22 97.5 F L 09/05/24 15:11 97.4 F L 09/05/24 15:10 97.7 F 65 16 103/67 94 L 09/05/24 13:11 64 09/05/24 11:08 97.3 F L 64 16 107/69 93 L 09/05/24 08:35 97.5 F L 85 16 94/55 92 L 09/05/24 07:30 96.8 F L 09/05/24 04:00 96.4 F L 69 16 102/54 97 09/05/24 02:00 68 16 09/04/24 23:12 97.3 F L 68 16 98/60 100 Intake and Output 09/05/24 09/05/24 09/05/24 06:59 14:59 22:59 Intake Total 10 110 120 Output Total 200 50 75 Balance -190 60 45 Intake: IV 10 Invasive Line 2 10 Oral 110 120 Output: Urine 200 50 75 Other: Voiding Method External Catheter External Catheter External Catheter # Voids 1 Weight 57.5 kg GENERAL DESCRIPTION: Elderly female lying in bed, no distress. No tachypnea or accessory muscle of respiration use. HEENT: Shows Pallor , no scleral icterus. Oral mucous membrane is dry. NECK: Trachea central, no thyromegaly. LUNGS: Unlabored breathing. Decreased breath sound at the base HEART: S1, S2, regular rate and rhythm. No loud murmur ABDOMEN: Soft, no tenderness , guarding or rigidity, no organomegaly EXTREMITIES: No edema of feet. SKIN: No rash, no masses palpable. NEUROLOGICAL: The patient is lethargic but arousable no neck rigidity Results CBC & Chem 7: 09/05/24 07:08 09/05/24 07:08 Labs: Abnormal Lab Results - Last 24 Hours (Table) 09/05/24 09/05/24 Range/Units 07:08 07:08 WBC 12.7 H (3.8-10.6) k/uL RBC 3.64 L (3.80-5.40) m/uL Hgb 7.9 L (11.4-16.0) gm/dL Hct 29.9 L (34.0-46.0) % MCH 21.6 L (25.0-35.0) pg MCHC 26.4 L (31.0-37.0) g/dL RDW 22.3 H (11.5-15.5) % Neutrophils # 9.9 H (1.3-7.7) k/uL BUN 44 H (7-17) mg/dL Creatinine 1.42 H (0.52-1.04) mg/dL Glucose 113 H (74-99) mg/dL Assessment and Plan (1) Leukocytosis Current Visit: Yes Status: Acute Code(s): D72.829 - ELEVATED WHITE BLOOD CELL COUNT, UNSPECIFIED SNOMED Code(s): 827955296 (2) Abnormal chest x-ray Current Visit: Yes Status: Acute Code(s): R93.89 - ABNORMAL FINDINGS ON DX IMAGING OF OTH BODY STRUCTURES SNOMED Code(s): 065931936 (3) Altered mental status Current Visit: Yes Status: Acute Code(s): R41.82 - ALTERED MENTAL STATUS, UNSPECIFIED SNOMED Code(s): 811733371 Plan: 1patient presented to hospital with weakness lethargic now patient did have evidence of hypothermia did have elevated white count patient denies having any headache no neck rigidity underlying [employer] infection less likely patient did have a cough some choking on food question of possible aspiration pneumonitis 2-blood cultures have been obtained we will check CRP procalcitonin repeat chest x-ray 3-empirically add Zosyn while waiting for the workup to be completed Family at the bedside multiple question concern answered We will follow on clinical condition and cultures to further adjust medication if needed Thank you for this consultation we will follow the patient along with you Dictation was produced using [employer] dictation software. please excuse any grammatical, word or spelling errors. Time with Patient: Greater than 30
[2024-09-06] MEDS: LEVOTHYROXINE 75 MCG TAB PO SCH (06:24)
[2024-09-06] MEDS ORDERED: LEVOTHYROXINE 50 MCG TAB PO SCH (06:30)
[2024-09-06 08:07] LABS: African American GFR (CKD) 36 (>60 ml/min/1.73 sqM); Anion Gap 2 mmol/L; Blood Urea Nitrogen 46 mg/dL (7-17); C Reactive Protein 2.1 mg/dL (<1.0); Calcium 8.1 mg/dL (8.4-10.2); Carbon Dioxide 30 mmol/L (22-30); Chloride 106 mmol/L (98-107); Glucose 89 mg/dL (74-99); Non-African American GFR(CKD) 31 (>60 ml/min/1.73 sqM); Potassium 3.5 mmol/L (3.5-5.1); Sodium 138 mmol/L (137-145)
[2024-09-06 08:09] LABS: Anisocytosis Moderate; Basophils % (A) 0 %; Eosinophils # (A) 0.1 k/uL (0-0.7); Eosinophils % (A) 1 %; HCT 27.2 % (34.0-46.0); HGB 7.5 gm/dL (11.4-16.0); Hypochromasia Marked; Lymphocytes # (A) 1.2 k/uL (1.0-4.8); Lymphocytes % (A) 12 %; MCH 22.5 pg (25.0-35.0); MCHC 27.7 g/dL (31.0-37.0); Microcytosis Slight; Monocytes # (A) 0.7 k/uL (0-1.0); Monocytes % (A) 6 %; Neutrophils % (A) 79 %; Platelet Count 140 k/uL (150-450); Poikilocytosis Slight; RBC 3.36 m/uL (3.80-5.40); RDW 22.2 % (11.5-15.5); WBC 10.2 k/uL (3.8-10.6)
--- NOTE | 2024-09-06 15:10 | P.PN ---
Subjective Progress Note Date: 09/06/24 This is a 84-year-old female admitted with altered mental status changes, acute hypoxic respiratory failure and multiple other medical issues. Evaluated by neurology, neuro workup in progress. Keppra initiated yesterday, no seizure activity reported. reported EEG completed this morning, results pending, MRI and echo pending. Patient does not recognize PCP. Speech is slow ,family reports patient mixing up words and short of breath. Maintaining O2 sats of high 90s to 100% on 2 L nasal cannula. Ultrasound performed yesterday reported large bilateral pleural effusions both marked for possible thoracentesis,left greater than right; anticoagulated on Eliquis. Diuresing on Lasix IV push. blood pressure soft this morning. Bicarb 29, BUN 39, creatinine 1.36. On admission BNP 14,100, currently 17,500. 09/05/2024 require warming blanket to maintain axillary temperature 97.5. EEG completed reporting moderate to severe encephalopathy, no seizure activity. Keppra discontinued as per neurology, at family's request. Brain MRI reported no evidence of intracranial mass or acute/subacute infarct. Remote right occipital lobe and left cerebellum with encephalomalacia and miosis. Nonspecific white matter changes likely secondary to small vessel ischemic disease.Echo reported 6 normal LV function with severe mitral regurgitation, moderate pulmonary hypertension, moderate tricuspid regurgitation, No aortic stenosis, maintain O2 sats in the 90s on 1 L nasal cannula. Afebrile, WBC 12.7, hemoglobin 7.9, platelets 153. Electrolytes within normal limits. Renal function mildly worsened, BUN 44 creatinine 1.42. Diuretics converted from IV push to oral as per cardiology 09/06/2024 echo reported normal LV size and systolic function with severe mitral regurgitation eccentric and also central with multiple jets, moderate pulmonary hypertension, moderate tricuspid regurgitation, no aortic stenosis, no significant pericardial effusion. Evaluated by infectious disease with recommendations noted. Continues on Zosyn. Blood cultures obtained, results pending. CRP elevated, 2.1, normal procalcitonin. Continues with warming blanket, axillary 97.5. WBC normal. chest x-ray completed yesterday, reported moderate left pleural effusion, right lower lobe infiltrates, stable. Eliquis has been temporarily discontinued, for potential tap. Transition to oral Lasix yesterday, creatinine mildly increased. Eleven 7.5, platelets 140. Sensorium slowly improving,recognizes PCP, Dr. Kwong today. Objective - Vital Signs Vital signs: Vital Signs Temp 97.5 F L 09/06/24 12:00 Pulse 68 09/06/24 12:00 Resp 16 09/06/24 12:00 BP 114/64 09/06/24 12:00 Pulse Ox 96 09/06/24 12:00 FiO2 Intake & Output 09/05/24 09/06/24 09/06/24 18:59 06:59 18:59 Intake Total 230 118 Output Total 125 200 Balance 105 -200 118 Weight 59.5 kg Intake: Oral 230 118 Output: Urine 125 200 Other: Voiding Method External Catheter External Catheter External Catheter # Voids 1 - Exam GENERAL: alert and oriented x2, NAD, HEENT: Normocephalic, atraumatic, pupils are round and equal, positive conjunctival pallor. CARDIOVASCULAR: S1 and S2 present. Systolic murmurs, rubs, or gallops. PULMONARY: Unlabored at rest, equal air entry, fine bibasilar crackles. ABDOMEN: Soft, nontender, nondistended, normoactive bowel sounds. No palpable organomegaly. EXTREMITIES: No cyanosis, clubbing, or pedal edema. NEUROLOGICAL: Gross neurological examination did not reveal any focal deficits. SKIN: Warm and dry, no rashes. - Labs CBC & Chem 7: 09/08/24 05:55 09/08/24 05:55 Labs: Abnormal Lab Results - Last 24 Hours (Table) 09/06/24 09/06/24 Range/Units 06:48 06:48 RBC 3.36 L (3.80-5.40) m/uL Hgb 7.5 L (11.4-16.0) gm/dL Hct 27.2 L (34.0-46.0) % MCH 22.5 L (25.0-35.0) pg MCHC 27.7 L (31.0-37.0) g/dL RDW 22.2 H (11.5-15.5) % Plt Count 140 L (150-450) k/uL Neutrophils # 8.0 H (1.3-7.7) k/uL BUN 46 H (7-17) mg/dL Creatinine 1.52 H (0.52-1.04) mg/dL Calcium 8.1 L (8.4-10.2) mg/dL C-Reactive Protein 2.1 H (<1.0) mg/dL Assessment and Plan Assessment: Altered mental status, accompanied by hypothermia, acute moderate encephalopathy, possibly metabolic , etiology unclear. Acute hypoxic respiratory failure secondary to bilateral pleural effusions Acute on chronic CHF, systolic dysfunction EF 40 to 45% Persistent atrial fibrillation with controlled ventricular rate, anticoagulated with Eliquis Normal LV function Moderate pulmonary hypertension Severe mitral regurgitation Moderate tricuspid regurgitation Chronic kidney disease stage III-IV Elevated troponin, minimal, secondary to CKD Hypertension Hypothyroidism Possible vascular dementia Plan: Continue on current medication regimen ,monitoring and symptomatic treatment. Blood cultures in progress, antibiotics as per infectious disease.pulmonary following regarding bilateral pleural effusions with potential thoracentesis. Anticoagulated on Eliquis. Eliquis on hold for potential tap. The impression and plan of care has been dictated as directed. : I performed a history and examination of this patient, discussed the same with the dictator. I agree with the dictator's note ,documented as a scribe. Any additional findings or plans will be noted.
--- NOTE | 2024-09-06 15:20 | P.PN ---
Subjective Progress Note Date: 09/06/24 Principal diagnosis: Mental status changes. This is an 84-year-old female patient with a known history of relation anticoagulated with Eliquis, CVA/TIA, congestive heart failure, chronic kidney disease, anemia, hypothyroidism, chronic and ongoing tobacco dependence who was brought into the emergency room yesterday for confusion and altered mental status according to her family members who are present. Some progressive weakness and poor appetite over the past couple of days. CT scan of the brain revealed no acute intracranial process. Chest x-ray reveals cardiomegaly and a large left and small right pleural effusions suggestive of pulmonary edema. White count 9.4. Hemoglobin 8.8. Platelets 187. INR 1.4. Sodium 144. Potassium 3.9. Bicarb 33. BUN 36. Creatinine 1.37. Glucose 123. Troponin 0.054, 0.038. proBNP 14,100. Urinalysis clean. Drug screen clean. Viral screen negative. She is seen today in consultation in the emergency department. She is currently resting on a stretcher. Awake but very weak and slow to respond. She is maintaining O2 saturations in the mid 90s on 2 L/min per nasal cannula. She is afebrile. Hemodynamically stable. Progress note dated September 04, 2024. 84-year-old female seen today in room 363. She was admitted with a diagnosis of mental status changes. We were consulted on this patient for bilateral effusions. The patient is currently on 2 L of oxygen. Saturations are 100%. She is not receiving any IV fluids. The effusion on the right is about 6 cm in size and the effusion on the left is 9 cm in size. She is receiving IV diuretics. White count is 13.7, hemoglobin 8.2, hematocrit 31.4, platelet count 139,000. Sodium 141, potassium 3.3, chlorides 104, CO2 29, BUN 39, and creatinine 1.36. The patient's N-terminal proBNP is 17,500. Progress note dated September 05, 2024. 84-year-old female seen today in room 363. The patient had an MRI of the brain today which showed no evidence of intracranial mass or acute/subacute infarct. There was remote right occipital lobe and left cerebellum with evidence of encephalomalacia, and gliosis. Currently, the patient is on 1 L of nasal oxygen, no IV fluids. The patient was stable, without acute abnormalities, and had an uneventful night, and was resting comfortably without any distress or difficulty. Today's labs include a white count of 12.7, hemoglobin 7.9, hematocrit 29.9, and a platelet count of 153,000. Sodium 140, potassium 4, chlorides 106, CO2 28, BUN 44, and creatinine 1.42. Glucose is 113. Calcium 8.5. September 06, 2024. 84-year-old female seen today in room 363. The patient is resting comfortably in bed. Her daughter is at the bedside. The patient's procalcitonin level was normal at 0.14. The patient continues on Rocephin. It can be discontinued. The patient is getting oxygen by nasal cannula at 1 L. We will repeat the ultrasound of the chest, to determine whether or not the pleural effusions have diminished in size. Eliquis is placed on hold. Clinically, the patient is not having any respiratory difficulty. Labs include a white count 10.2, hemoglobin 7.5, hematocrit 27.2, and a platelet count of 140,000. Sodium 138, potassium 3.5, chlorides 106, CO2 30, BUN 46, and creatinine 1.52. Procalcitonin level was 0.14. Repeat chest ultrasound, is pending. Objective - Vital Signs Vital signs: Vital Signs Temp 97.5 F L 09/06/24 12:00 Pulse 68 09/06/24 12:00 Resp 16 09/06/24 12:00 BP 114/64 09/06/24 12:00 Pulse Ox 96 09/06/24 12:00 FiO2 Intake & Output 09/05/24 09/06/24 09/06/24 18:59 06:59 18:59 Intake Total 230 118 Output Total 125 200 Balance 105 -200 118 Weight 59.5 kg Intake: Oral 230 118 Output: Urine 125 200 Other: Voiding Method External Catheter External Catheter External Catheter # Voids 1 - Exam No acute distress, oriented 3. The patient is currently on 1 L of oxygen, with saturations of 100%. HEENT examination is grossly unremarkable. Mucous membranes are moist. No oral lesions. Neck supple. Full range of motion. No adenopathy thyromegaly or neck vein distention. Cardiovascular examination reveals regular rhythm rate. S1-S2 normal. No S3 or S4. No discernible murmur noted. Lungs reveal basilar crackles. No wheezes or rhonchi. Breath sounds are equal. Abdomen soft bowel sounds are heard. No masses or tenderness. Extremities are intact. No cyanosis clubbing or edema. Skin is without rash or lesion. Neurologic examination is brief but nonfocal. - Labs CBC & Chem 7: 09/06/24 06:48 09/06/24 06:48 Labs: Abnormal Lab Results - Last 24 Hours (Table) 09/06/24 09/06/24 Range/Units 06:48 06:48 RBC 3.36 L (3.80-5.40) m/uL Hgb 7.5 L (11.4-16.0) gm/dL Hct 27.2 L (34.0-46.0) % MCH 22.5 L (25.0-35.0) pg MCHC 27.7 L (31.0-37.0) g/dL RDW 22.2 H (11.5-15.5) % Plt Count 140 L (150-450) k/uL Neutrophils # 8.0 H (1.3-7.7) k/uL BUN 46 H (7-17) mg/dL Creatinine 1.52 H (0.52-1.04) mg/dL Calcium 8.1 L (8.4-10.2) mg/dL C-Reactive Protein 2.1 H (<1.0) mg/dL Assessment and Plan Assessment: Altered mental status of unclear etiology. Acute hypoxic respiratory failure secondary to bilateral pleural effusions left greater than right. Atrial fibrillation, anticoagulated with Eliquis. Acute on chronic anemia. Acute kidney injury. Troponin leak. History of hypertension. Hyperlipidemia. Hypothyroidism. Chronic kidney disease. Plan: Plan dated September 04, 2024. The patient is seen today in room 363. I explained to the family, that at this time, the patient is currently on diuretics, and hopefully that will improve the bilateral pleural effusions. The the effusions are moderate in size, but the 1 on the right being 6 cm of the one of the left 9 cm. She is at 100% on 2 L. She is not receiving any IV fluids. She continues on IV diuretics. Labs, x- rays, and medications are reviewed. We will continue to follow the patient, make recommendations in regard to thoracentesis as the week progresses. She is on Eliquis at this time, and that will have to be discontinued for 2 days prior to any procedure. Plan dated September 05, 2024. The patient appears to be doing relatively well. The patient is currently on 1 L of oxygen. The MRI did not show anything acute or subacute today. There was some changes as mentioned above. Labs, x-rays, and medications are reviewed. We will continue to follow, and make recommendations along the way. Plan dated September 06, 2024. The patient is seen today in room 363. She is on 1 L of oxygen. She continues on Rocephin. Procalcitonin level is normal. Antibiotic should be discontinued in my opinion. We will repeat an ultrasound of the chest to determine whether or not she is a candidate for thoracentesis. Eliquis is placed on hold. Labs, x-rays, and medications are all reviewed. Prognosis is guarded. Time with Patient: Less than 30
--- NOTE | 2024-09-06 15:24 | US ---
EXAMINATION TYPE: US chest DATE OF EXAM: 09/06/2024 COMPARISON: Plain film CLINICAL INDICATION: Female, 84 years old with history of Effusions; Left pleural effusion. TECHNIQUE: Grayscale imaging of the chest. Targeted ultrasound of the posterior lower left hemithora x FINDINGS: EXAM MEASUREMENTS: Left Pleural Effusion pocket size: 9.4 cm Left skin surface to fluid distance: 1.5 cm lung tissue visualized 4.3 cm in fluid pocket. Left side marked for possible thoracentesis outside the dept. Pulmonologists are able to review the images in the patient?s EMR. IMPRESSIONS: Left pleural effusion marked for thoracentesis [facility], , 09/06/2024 3:21 PM
--- NOTE | 2024-09-06 18:37 | P.PN ---
Subjective Progress Note Date: 09/06/24 I am following up with the patient and she continues to be on the bear hugger and today her and son are at bedside and states that her mentation is drastically better. Objective - Vital Signs Vital signs: Vital Signs Temp 97.5 F L 09/06/24 16:00 Pulse 68 09/06/24 12:00 Resp 6 L 09/06/24 16:00 BP 117/64 09/06/24 16:00 Pulse Ox 99 09/06/24 16:00 FiO2 Intake & Output 09/05/24 09/06/24 09/06/24 18:59 06:59 18:59 Intake Total 230 118 Output Total 125 200 Balance 105 -200 118 Weight 59.5 kg Intake: Oral 230 118 Output: Urine 125 200 Other: Voiding Method External Catheter External Catheter External Catheter # Voids 1 1 # Bowel Movements 1 - Exam General: Lying in bed and is not in acute distress. Neuro: Somewhat limited. Patient is awake alert oriented to self place. She is eating just before entering the room. She is following simple commands. She is able to identify objects correctly such as pen glasses. She is able to name her son's name correctly who is at bedside No facial weakness. No dysarthria. Some of the workup during this hospital visit consisted of: Creatinine is 1.35, BUN is 36. Creatinine is trending up to 1.42 Troponin is 0.054 and most recent troponin is 0.038 Vitamin B12: 433 TSH: 0.041 and free T4: 2.34 Ammonia <9 CT of the head is reported as no acute intracranial process. I personally reviewed the CT and agree with the report. 2D echo was reported as normal left atrial size systolic function with severe mitral regurgitation. Moderate pulmonary hypertension. Moderate tricuspid regurgitation MRI of the brain is reported as no evidence of intracranial mass or a cute/subacute infarct. Remote right occipital lobe and left cerebellum with encephalomalacia and gliosis. EEG is abnormal. The background slowing is suggestive of moderate to severe encephalopathy. Otherwise there is no focal slowing, OptiForm discharge or seizure on the EEG. - Labs CBC & Chem 7: 09/06/24 06:48 09/06/24 06:48 Labs: Abnormal Lab Results - Last 24 Hours (Table) 09/06/24 09/06/24 Range/Units 06:48 06:48 RBC 3.36 L (3.80-5.40) m/uL Hgb 7.5 L (11.4-16.0) gm/dL Hct 27.2 L (34.0-46.0) % MCH 22.5 L (25.0-35.0) pg MCHC 27.7 L (31.0-37.0) g/dL RDW 22.2 H (11.5-15.5) % Plt Count 140 L (150-450) k/uL Neutrophils # 8.0 H (1.3-7.7) k/uL BUN 46 H (7-17) mg/dL Creatinine 1.52 H (0.52-1.04) mg/dL Calcium 8.1 L (8.4-10.2) mg/dL C-Reactive Protein 2.1 H (<1.0) mg/dL Assessment and Plan Assessment: This is an 84-year-old man who presents emergency department because of episode of confusion and according to she had head shaking lasting for 2 minutes then afterwards she was somewhat confused and the was concerned seems like a seizure. She does not have any history of stroke. Episode of confusion and hypothermia of unknown etiology rule out underlying infection. Confusion could be due to abnormal thyroid. EEG is negative for any seizure discharges. MRI of the brain is negative for any acute or subacute stroke--today mentation is drastically better compared to the last 2 days. Episode of head shaking with confusion: Unknown exact etiology of encephalopathy. Routine EEG was negative for any seizure discharges. I am concerned about underlying seizure because according to the family members she had staring off episode at times and had shaking but they want to hold off on any any antiseizure medication at this time. Severe mitral regurgitation. Respiratory distress and probable due to severe Pulmonary hypertension Moderate tricuspid regurgitation Slightly elevated troponin History of stroke/TIA according to medical record but patient and her do not remember that she had a stroke. History of atrial fibrillation on Eliquis Hypertension History of congestive heart failure Chronic kidney insufficiency Hypothyroidism Chronic tobacco use Plan: Family still wants the antiseizure to be placed on hold. During this hospital visit she was placed on Keppra but it was stopped couple days ago since family members felt was causing her confused. Currently patient mentation is drastically better. Recommend patient to be on Vimpat 50 mg twice daily since patient has blank stares with head shaking per family members and that can be considered as an outpatient with her neurologist since family wants to hold off on any anti seizure medication at this time. ID team is on board. If unknown cause of her confusion consider lumbar puncture. Patient has abnormal thyroid level and will defer the management to primary team Seizure precautions seizure pads Cardiology is on board Pulmonary team is on board and they are consulted for pulmonary edema Patient is on Eliquis 2.5 mg twice daily her home dose. Will defer the rest of the medical management to primary other specialist. The plan is discussed with her and son who are at bedside. Time with Patient: Less than 30
--- NOTE | 2024-09-07 13:08 | P.PN ---
Subjective Progress Note Date: 09/06/24 Principal diagnosis: Reason for follow-up is leukocytosis hypothermia/infection Patient is a 84-year-old female with a past medical history significant for hypertension hyperlipidemia osteoarthritis heart failure atrial fibrillation patient has been brought into the hospital for evaluation of confusion and decreased appetite patient noticed to be hypothermic did have elevated white count prompting this consultation. On today's evaluation that is 09/06/2024,the patient did have some improvement in her temperature still requiring warming blanket patient seen to be slightly more awake as reported by the family did have minimal cough no vomiting or diarrhea has been reported. Patient white normalized to 10.2, creatinine is 1.52 Objective - Vital Signs Vital signs: Vital Signs Temp 96.4 F L 09/06/24 04:27 Pulse 60 09/06/24 04:27 Resp 16 09/06/24 04:27 BP 109/69 09/06/24 04:27 Pulse Ox 95 09/06/24 04:27 FiO2 Intake & Output 09/05/24 09/06/24 09/06/24 18:59 06:59 18:59 Intake Total 230 Output Total 125 200 Balance 105 -200 Weight 59.5 kg Intake: Oral 230 Output: Urine 125 200 Other: Voiding Method External Catheter External Catheter # Voids 1 - Exam GENERAL DESCRIPTION: An elderly female lying in bed in no distress RESPIRATORY SYSTEM: Unlabored breathing , decreased breath sounds at bases HEART: S1 S2 regular rate and rhythm , ABDOMEN: Soft , no tenderness EXTREMITIES: No edema feet - Labs CBC & Chem 7: 09/06/24 06:48 09/06/24 06:48 Labs: Abnormal Lab Results - Last 24 Hours (Table) 09/06/24 09/06/24 Range/Units 06:48 06:48 RBC 3.36 L (3.80-5.40) m/uL Hgb 7.5 L (11.4-16.0) gm/dL Hct 27.2 L (34.0-46.0) % MCH 22.5 L (25.0-35.0) pg MCHC 27.7 L (31.0-37.0) g/dL RDW 22.2 H (11.5-15.5) % Plt Count 140 L (150-450) k/uL Neutrophils # 8.0 H (1.3-7.7) k/uL BUN 46 H (7-17) mg/dL Creatinine 1.52 H (0.52-1.04) mg/dL Calcium 8.1 L (8.4-10.2) mg/dL C-Reactive Protein 2.1 H (<1.0) mg/dL Assessment and Plan (1) Leukocytosis Current Visit: Yes Status: Acute Code(s): D72.829 - ELEVATED WHITE BLOOD CELL COUNT, UNSPECIFIED SNOMED Code(s): 280126753 (2) Abnormal chest x-ray Current Visit: Yes Status: Acute Code(s): R93.89 - ABNORMAL FINDINGS ON DX IMAGING OF OTH BODY STRUCTURES SNOMED Code(s): 679134367 (3) Altered mental status Current Visit: Yes Status: Acute Code(s): R41.82 - ALTERED MENTAL STATUS, UNSPECIFIED SNOMED Code(s): 137991378 Plan: 1patient presented to hospital with weakness lethargic now patient did have evidence of hypothermia did have elevated white count patient denies having any headache no neck rigidity underlying MANAGER DENTAL infection less likely patient did have a cough some choking on food question of possible aspiration pneumonitis 2-blood cultures have been obtained which are currently pending chest x-ray with some effusion and infiltrate question of pneumonia 3-patient white count seem to have normalized with addition of Zosyn to continue while waiting for the culture to finalize Dictation was produced using [employer] dictation software. please excuse any grammatical, word or spelling errors. Time with Patient: Less than 30
--- NOTE | 2024-09-07 13:08 | P.PN ---
Subjective Progress Note Date: 09/07/24 Principal diagnosis: Reason for follow-up is leukocytosis hypothermia/infection Patient is a 84-year-old female with a past medical history significant for hypertension hyperlipidemia osteoarthritis heart failure atrial fibrillation patient has been brought into the hospital for evaluation of confusion and decreased appetite patient noticed to be hypothermic did have elevated white count prompting this consultation. On today's evaluation that is 09/07/2024,the patient did have normalization of her temperature and is currently off the warming blanket, patient is on 1 L nasal cannula supplemental oxygen and denies any shortness of breath no chest pain or any worsening cough.Patient denies having any nausea or vomiting, no abdominal pain and no diarrhea has been reported. No new lab has been repeated today cultures currently pending Objective - Vital Signs Vital signs: Vital Signs Temp 97.5 F L 09/07/24 12:00 Pulse 69 09/07/24 12:00 Resp 16 09/07/24 12:00 BP 94/53 09/07/24 08:00 Pulse Ox 134 H 09/07/24 12:00 FiO2 Intake & Output 09/06/24 09/07/24 09/07/24 18:59 06:59 18:59 Intake Total 118 118 Output Total 450 3 Balance 118 -450 115 Weight 49.5 kg Intake: Oral 118 118 Output: Urine 450 Stool 3 Other: Voiding Method External Catheter External Catheter External Catheter # Voids 1 1 # Bowel Movements 1 - Exam GENERAL DESCRIPTION: An elderly female lying in bed in no distress RESPIRATORY SYSTEM: Unlabored breathing , decreased breath sounds at bases HEART: S1 S2 regular rate and rhythm , ABDOMEN: Soft , no tenderness EXTREMITIES: No edema feet - Labs CBC & Chem 7: 09/06/24 06:48 09/06/24 06:48 Labs: Microbiology - Last 24 Hours (Table) 09/05/24 12:46 Blood Culture - Preliminary Blood 09/05/24 12:30 Blood Culture - Preliminary Blood Assessment and Plan (1) Leukocytosis Current Visit: Yes Status: Acute Code(s): D72.829 - ELEVATED WHITE BLOOD CELL COUNT, UNSPECIFIED SNOMED Code(s): 179777752 (2) Abnormal chest x-ray Current Visit: Yes Status: Acute Code(s): R93.89 - ABNORMAL FINDINGS ON DX IMAGING OF OTH BODY STRUCTURES SNOMED Code(s): 439443350 (3) Altered mental status Current Visit: Yes Status: Acute Code(s): R41.82 - ALTERED MENTAL STATUS, UNSPECIFIED SNOMED Code(s): 347263005 Plan: 1patient presented to hospital with weakness lethargic now patient did have evidence of hypothermia did have elevated white count patient denies having any headache no neck rigidity underlying DOCUMENT CONTROL MANAGER infection less likely patient did have a cough some choking on food question of possible aspiration pneumonitis 2-blood cultures have been obtained which are currently pending chest x-ray with some effusion and infiltrate question of pneumonia 3-patient white count has normalized and the patient seem to have shown some clinical improvement normalization of the temperature, I will continue Zosyn while waiting for the culture to finalize Dictation was produced using [employer] dictation software. please excuse any grammatical, word or spelling errors. Time with Patient: Less than 30
--- NOTE | 2024-09-07 13:48 | P.PN ---
Subjective Progress Note Date: 09/07/24 Principal diagnosis: Mental status changes. This is an 84-year-old female patient with a known history of relation anticoagulated with Eliquis, CVA/TIA, congestive heart failure, chronic kidney disease, anemia, hypothyroidism, chronic and ongoing tobacco dependence who was brought into the emergency room yesterday for confusion and altered mental status according to her family members who are present. Some progressive weakness and poor appetite over the past couple of days. CT scan of the brain revealed no acute intracranial process. Chest x-ray reveals cardiomegaly and a large left and small right pleural effusions suggestive of pulmonary edema. White count 9.4. Hemoglobin 8.8. Platelets 187. INR 1.4. Sodium 144. Potassium 3.9. Bicarb 33. BUN 36. Creatinine 1.37. Glucose 123. Troponin 0.054, 0.038. proBNP 14,100. Urinalysis clean. Drug screen clean. Viral screen negative. She is seen today in consultation in the emergency department. She is currently resting on a stretcher. Awake but very weak and slow to respond. She is maintaining O2 saturations in the mid 90s on 2 L/min per nasal cannula. She is afebrile. Hemodynamically stable. Progress note dated September 04, 2024. 84-year-old female seen today in room 363. She was admitted with a diagnosis of mental status changes. We were consulted on this patient for bilateral effusions. The patient is currently on 2 L of oxygen. Saturations are 100%. She is not receiving any IV fluids. The effusion on the right is about 6 cm in size and the effusion on the left is 9 cm in size. She is receiving IV diuretics. White count is 13.7, hemoglobin 8.2, hematocrit 31.4, platelet count 139,000. Sodium 141, potassium 3.3, chlorides 104, CO2 29, BUN 39, and creatinine 1.36. The patient's N-terminal proBNP is 17,500. Progress note dated September 05, 2024. 84-year-old female seen today in room 363. The patient had an MRI of the brain today which showed no evidence of intracranial mass or acute/subacute infarct. There was remote right occipital lobe and left cerebellum with evidence of encephalomalacia, and gliosis. Currently, the patient is on 1 L of nasal oxygen, no IV fluids. The patient was stable, without acute abnormalities, and had an uneventful night, and was resting comfortably without any distress or difficulty. Today's labs include a white count of 12.7, hemoglobin 7.9, hematocrit 29.9, and a platelet count of 153,000. Sodium 140, potassium 4, chlorides 106, CO2 28, BUN 44, and creatinine 1.42. Glucose is 113. Calcium 8.5. Progress note dated September 06, 2024. 84-year-old female seen today in room 363. The patient is resting comfortably in bed. Her daughter is at the bedside. The patient's procalcitonin level was normal at 0.14. The patient continues on Rocephin. It can be discontinued. The patient is getting oxygen by nasal cannula at 1 L. We will repeat the ultrasound of the chest, to determine whether or not the pleural effusions have diminished in size. Eliquis is placed on hold. Clinically, the patient is not having any respiratory difficulty. Labs include a white count 10.2, hemoglobin 7.5, hematocrit 27.2, and a platelet count of 140,000. Sodium 138, potassium 3.5, chlorides 106, CO2 30, BUN 46, and creatinine 1.52. Procalcitonin level was 0.14. Repeat chest ultrasound, is pending. Progress note dated September 07, 2024. 84-year-old female seen today in room 363. The patient is currently on 1 L of oxygen. No respiratory distress. She is not receiving any IV fluids. We were consulted for thoracentesis. I do not believe the patient would benefit from thoracentesis at this point. A number of reasons to point out include her age, her general medical debility, and the fact that the ultrasound showed evidence of tissue within the fluid pocket. No new labs today. Her procalcitonin level was 0.14. Objective - Vital Signs Vital signs: Vital Signs Temp 97.5 F L 09/07/24 12:00 Pulse 69 09/07/24 12:00 Resp 16 09/07/24 12:00 BP 94/53 09/07/24 08:00 Pulse Ox 134 H 09/07/24 12:00 FiO2 Intake & Output 09/06/24 09/07/24 09/07/24 18:59 06:59 18:59 Intake Total 118 118 Output Total 450 3 Balance 118 -450 115 Weight 49.5 kg Intake: Oral 118 118 Output: Urine 450 Stool 3 Other: Voiding Method External Catheter External Catheter External Catheter # Voids 1 1 # Bowel Movements 1 - Exam No acute distress, oriented 3. The patient is currently on 1 L of oxygen, with saturations of 100%. HEENT examination is grossly unremarkable. Mucous membranes are moist. No oral lesions. Neck supple. Full range of motion. No adenopathy thyromegaly or neck vein distention. Cardiovascular examination reveals regular rhythm rate. S1-S2 normal. No S3 or S4. No discernible murmur noted. Lungs reveal basilar crackles. No wheezes or rhonchi. Breath sounds are equal. Abdomen soft bowel sounds are heard. No masses or tenderness. Extremities are intact. No cyanosis clubbing or edema. Skin is without rash or lesion. Neurologic examination is brief but nonfocal. - Labs CBC & Chem 7: 09/06/24 06:48 09/06/24 06:48 Labs: Microbiology - Last 24 Hours (Table) 09/05/24 12:46 Blood Culture - Preliminary Blood 09/05/24 12:30 Blood Culture - Preliminary Blood Assessment and Plan Assessment: Altered mental status of unclear etiology. Acute hypoxic respiratory failure secondary to bilateral pleural effusions left greater than right. Atrial fibrillation, anticoagulated with Eliquis. Acute on chronic anemia. Acute kidney injury. Troponin leak. History of hypertension. Hyperlipidemia. Hypothyroidism. Chronic kidney disease. Plan: Plan dated September 04, 2024. The patient is seen today in room 363. I explained to the family, that at this time, the patient is currently on diuretics, and hopefully that will improve the bilateral pleural effusions. The the effusions are moderate in size, but the 1 on the right being 6 cm of the one of the left 9 cm. She is at 100% on 2 L. She is not receiving any IV fluids. She continues on IV diuretics. Labs, x- rays, and medications are reviewed. We will continue to follow the patient, make recommendations in regard to thoracentesis as the week progresses. She is on Eliquis at this time, and that will have to be discontinued for 2 days prior to any procedure. Plan dated September 05, 2024. The patient appears to be doing relatively well. The patient is currently on 1 L of oxygen. The MRI did not show anything acute or subacute today. There was some changes as mentioned above. Labs, x-rays, and medications are reviewed. We will continue to follow, and make recommendations along the way. Plan dated September 06, 2024. The patient is seen today in room 363. She is on 1 L of oxygen. She continues on Rocephin. Procalcitonin level is normal. Antibiotic should be discontinued in my opinion. We will repeat an ultrasound of the chest to determine whether or not she is a candidate for thoracentesis. Eliquis is placed on hold. Labs, x-rays, and medications are all reviewed. Prognosis is guarded. Plan dated September 07, 2024. The patient is currently seen today in room 363. She is on 1 L of oxygen. Saturations are excellent. She is not manifesting any signs or symptoms of respiratory distress. The patient is not a candidate for thoracentesis at this time. We do not believe that she will be able to sit up at the bedside. Labs, x-rays, and medications are reviewed. We will continue to follow make recommendations where appropriate. Eliquis will be resumed. No additional recommendations are made. Time with Patient: Less than 30
--- NOTE | 2024-09-07 14:49 | P.PN ---
Subjective Progress Note Date: 09/07/24 This is a 84-year-old female admitted with altered mental status changes, acute hypoxic respiratory failure and multiple other medical issues. Evaluated by neurology, neuro workup in progress. Keppra initiated yesterday, no seizure activity reported. reported EEG completed this morning, results pending, MRI and echo pending. Patient does not recognize PCP. Speech is slow ,family reports patient mixing up words and short of breath. Maintaining O2 sats of high 90s to 100% on 2 L nasal cannula. Ultrasound performed yesterday reported large bilateral pleural effusions both marked for possible thoracentesis,left greater than right; anticoagulated on Eliquis. Diuresing on Lasix IV push. blood pressure soft this morning. Bicarb 29, BUN 39, creatinine 1.36. On admission BNP 14,100, currently 17,500. 09/05/2024 require warming blanket to maintain axillary temperature 97.5. EEG completed reporting moderate to severe encephalopathy, no seizure activity. Keppra discontinued as per neurology, at family's request. Brain MRI reported no evidence of intracranial mass or acute/subacute infarct. Remote right occipital lobe and left cerebellum with encephalomalacia and miosis. Nonspecific white matter changes likely secondary to small vessel ischemic disease.Echo reported 6 normal LV function with severe mitral regurgitation, moderate pulmonary hypertension, moderate tricuspid regurgitation, No aortic stenosis, maintain O2 sats in the 90s on 1 L nasal cannula. Afebrile, WBC 12.7, hemoglobin 7.9, platelets 153. Electrolytes within normal limits. Renal function mildly worsened, BUN 44 creatinine 1.42. Diuretics converted from IV push to oral as per cardiology 09/06/2024 evaluated by infectious disease with recommendations noted. Continues on Zosyn. Blood cultures obtained, results pending. CRP elevated, 2.1, normal procalcitonin. Continues with warming blanket, axillary 97.5. WBC normal. chest x-ray completed yesterday, reported moderate left pleural effusion, right lower lobe infiltrates, stable. Eliquis has been temporarily discontinued, for potential tap. Transition to oral Lasix yesterday, creatinine mildly increased. Eleven 7.5, platelets 140. Sensorium slowly improving,recognizes PCP, Dr. Kwong today. 09/07/2024 reports rough night, did not sleep well .continues on Zosyn , preliminary blood cultures reporting no growth after 24 hours,maintaining temperatures within normal limits off the warming blanket, currently 98.4. Procalcitonin 0.14. sensorium continues to improve, alert, conversing more. Denies chest pain, palpitations or shortness of breath. Objective - Vital Signs Vital signs: Vital Signs Temp 97.6 F 09/07/24 13:47 Pulse 69 09/07/24 13:47 Resp 16 09/07/24 13:47 BP 134/58 09/07/24 13:47 Pulse Ox 95 09/07/24 13:47 FiO2 Intake & Output 09/06/24 09/07/24 09/07/24 18:59 06:59 18:59 Intake Total 118 118 Output Total 450 3 Balance 118 -450 115 Weight 49.5 kg Intake: Oral 118 118 Output: Urine 450 Stool 3 Other: Voiding Method External Catheter External Catheter External Catheter # Voids 1 1 # Bowel Movements 1 - Exam GENERAL: alert and oriented x2, sitting up in bed ,NAD, HEENT: Normocephalic, atraumatic, pupils are round and equal, positive conjunctival pallor. CARDIOVASCULAR: S1 and S2 present. No murmurs, rubs, or gallops. PULMONARY: Unlabored at rest, equal air entry, fine bibasilar crackles. ABDOMEN: Soft, nontender, nondistended, normoactive bowel sounds. No palpable organomegaly. EXTREMITIES: No cyanosis, clubbing, or pedal edema. NEUROLOGICAL: Gross neurological examination did not reveal any focal deficits. SKIN: Warm and dry, no rashes. - Labs CBC & Chem 7: 09/06/24 06:48 09/06/24 06:48 Labs: Microbiology - Last 24 Hours (Table) 09/05/24 12:46 Blood Culture - Preliminary Blood 09/05/24 12:30 Blood Culture - Preliminary Blood Assessment and Plan Assessment: Altered mental status, accompanied by acute moderate encephalopathy, possibly metabolic , etiology unclear Acute hypoxic respiratory failure secondary to bilateral pleural effusions Acute on chronic CHF, systolic dysfunction EF 40 to 45% Persistent atrial fibrillation with controlled ventricular rate, anticoagulated with Eliquis Chronic kidney disease stage III-IV Elevated troponin, minimal, secondary to CKD Hypertension Hypothyroidism Possible vascular dementia Plan: Continue on current medication regimen ,monitoring and symptomatic treatment. Blood cultures in progress, antibiotics as per infectious disease.Potential thoracentesis as per pulmonary. Eliquis on hold for potential tap. PT to reevaluate for subacute rehab at discharge. The impression and plan of care has been dictated as directed. : I performed a history and examination of this patient, discussed the same with the dictator. I agree with the dictator's note ,documented as a scribe. Any additional findings or plans will be noted.
[2024-09-07] MEDS: APIXABAN 5 MG TAB PO SCH (20:26)
[2024-09-08 06:27] LABS: Anisocytosis Moderate; Basophils % (A) 0 %; Eosinophils # (A) 0.1 k/uL (0-0.7); Eosinophils % (A) 2 %; HCT 28.1 % (34.0-46.0); HGB 7.4 gm/dL (11.4-16.0); Hypochromasia Marked; Lymphocytes # (A) 1.5 k/uL (1.0-4.8); Lymphocytes % (A) 16 %; MCH 21.9 pg (25.0-35.0); MCHC 26.5 g/dL (31.0-37.0); MCV 82.8 fL (80.0-100.0); Mean Platelet Volume 7.7; Microcytosis Slight; Monocytes # (A) 0.8 k/uL (0-1.0); Monocytes % (A) 9 %; Neutrophils # (A) 6.4 k/uL (1.3-7.7); Neutrophils % (A) 71 %; Platelet Count 130 k/uL (150-450); Poikilocytosis Slight; WBC 9.1 k/uL (3.8-10.6)
[2024-09-08 06:39] LABS: African American GFR (CKD) 36 (>60 ml/min/1.73 sqM); Anion Gap 6 mmol/L; Blood Urea Nitrogen 38 mg/dL (7-17); Calcium 8.2 mg/dL (8.4-10.2); Carbon Dioxide 28 mmol/L (22-30); Chloride 106 mmol/L (98-107); Glucose 86 mg/dL (74-99); Non-African American GFR(CKD) 31 (>60 ml/min/1.73 sqM); Sodium 140 mmol/L (137-145)
[2024-09-08] MEDS ORDERED: Potassium Replacement Protocol 1 EACH MISC MISCELLANE PRN (12:15)
--- NOTE | 2024-09-08 12:51 | CT ---
EXAMINATION TYPE: CT brain wo con CT DLP: 1184.3 mGycm, Automated exposure control for dose reduction was used. DATE OF EXAM: 09/08/2024 12:44 PM COMPARISON: MRI brain 09/05/2024, CT brain 09/02/2024 CLINICAL INDICATION:Female, 84 years old with history of altered mental status worse, AMS TECHNIQUE: Brain: Multiple axial CT images of the brain were obtained without IV contrast. . Coronal and sagitta l reformats reviewed. FINDINGS: Brain: Extra-axial spaces: No abnormal extra-axial fluid collections. Falx calcifications. Ventricular system: Within normal limits Cerebral parenchyma: Cerebral atrophy. No acute intraparenchymal hemorrhage or mass effect. The christianson -white junction is well differentiated. Scattered hypoattenuating areas are seen within the periventr icular and subcortical white matter. Remote right occipital lobe ischemia with encephalomalacia demo nstrated. Remote lacunar infarct within the right caudate head. Cerebellum: Remote left cerebellar infarct with encephalomalacia. Mass effect: No evidence of midline shift. Intracranial vasculature: Atherosclerotic calcifications of the intracranial vessels. Soft tissues: Normal. Calvarium/osseous structures: No depressed skull fracture. Paranasal sinuses and mastoid air cells: Clear, nasal septal deviation to the right. Visualized orbits: Bilateral aphakia IMPRESSION: 1. No acute intracranial process. 2. Small regions of encephalomalacia involving the right occipital lobe and left cerebellum related t o prior infarcts. Remote lacunar infarct involving the right caudate head. 3. Nonspecific white matter changes, likely secondary to chronic small vessel ischemic disease. [facility], , 09/08/2024 12:49 PM
--- NOTE | 2024-09-08 14:20 | P.PN ---
Subjective Progress Note Date: 09/08/24 Principal diagnosis: Mental status changes. This is an 84-year-old female patient with a known history of relation anticoagulated with Eliquis, CVA/TIA, congestive heart failure, chronic kidney disease, anemia, hypothyroidism, chronic and ongoing tobacco dependence who was brought into the emergency room yesterday for confusion and altered mental status according to her family members who are present. Some progressive weakness and poor appetite over the past couple of days. CT scan of the brain revealed no acute intracranial process. Chest x-ray reveals cardiomegaly and a large left and small right pleural effusions suggestive of pulmonary edema. White count 9.4. Hemoglobin 8.8. Platelets 187. INR 1.4. Sodium 144. Potassium 3.9. Bicarb 33. BUN 36. Creatinine 1.37. Glucose 123. Troponin 0.054, 0.038. proBNP 14,100. Urinalysis clean. Drug screen clean. Viral screen negative. She is seen today in consultation in the emergency department. She is currently resting on a stretcher. Awake but very weak and slow to respond. She is maintaining O2 saturations in the mid 90s on 2 L/min per nasal cannula. She is afebrile. Hemodynamically stable. Progress note dated September 04, 2024. 84-year-old female seen today in room 363. She was admitted with a diagnosis of mental status changes. We were consulted on this patient for bilateral effusions. The patient is currently on 2 L of oxygen. Saturations are 100%. She is not receiving any IV fluids. The effusion on the right is about 6 cm in size and the effusion on the left is 9 cm in size. She is receiving IV diuretics. White count is 13.7, hemoglobin 8.2, hematocrit 31.4, platelet count 139,000. Sodium 141, potassium 3.3, chlorides 104, CO2 29, BUN 39, and creatinine 1.36. The patient's N-terminal proBNP is 17,500. Progress note dated September 05, 2024. 84-year-old female seen today in room 363. The patient had an MRI of the brain today which showed no evidence of intracranial mass or acute/subacute infarct. There was remote right occipital lobe and left cerebellum with evidence of encephalomalacia, and gliosis. Currently, the patient is on 1 L of nasal oxygen, no IV fluids. The patient was stable, without acute abnormalities, and had an uneventful night, and was resting comfortably without any distress or difficulty. Today's labs include a white count of 12.7, hemoglobin 7.9, hematocrit 29.9, and a platelet count of 153,000. Sodium 140, potassium 4, chlorides 106, CO2 28, BUN 44, and creatinine 1.42. Glucose is 113. Calcium 8.5. Progress note dated September 06, 2024. 84-year-old female seen today in room 363. The patient is resting comfortably in bed. Her daughter is at the bedside. The patient's procalcitonin level was normal at 0.14. The patient continues on Rocephin. It can be discontinued. The patient is getting oxygen by nasal cannula at 1 L. We will repeat the ultrasound of the chest, to determine whether or not the pleural effusions have diminished in size. Eliquis is placed on hold. Clinically, the patient is not having any respiratory difficulty. Labs include a white count 10.2, hemoglobin 7.5, hematocrit 27.2, and a platelet count of 140,000. Sodium 138, potassium 3.5, chlorides 106, CO2 30, BUN 46, and creatinine 1.52. Procalcitonin level was 0.14. Repeat chest ultrasound, is pending. Progress note dated September 07, 2024. 84-year-old female seen today in room 363. The patient is currently on 1 L of oxygen. No respiratory distress. She is not receiving any IV fluids. We were consulted for thoracentesis. I do not believe the patient would benefit from thoracentesis at this point. A number of reasons to point out include her age, her general medical debility, and the fact that the ultrasound showed evidence of tissue within the fluid pocket. No new labs today. Her procalcitonin level was 0.14. Progress note dated September 08, 2024. 84-year-old female seen in room 363. The patient is currently on 1 L of oxygen. Saturations are 96 to 97%. Procalcitonin level was normal at 0.14. The patient continues on Zosyn. Laboratory data includes a white count 9.1, hemoglobin 7.4, hematocrit 28.1, and a platelet count of 130,000. Sodium 140, potassium 3, chlorides 106, CO2 28, BUN 38, and creatinine 1.51. Glucose is 86. Calcium 8.2. Magnesium 2.2. Blood cultures are negative. Brain CT is n egative for any acute intracranial process. There are areas of encephalomalacia, consistent with remote infarcts. Objective - Vital Signs Vital signs: Vital Signs Temp 97.3 F L 09/08/24 08:10 Pulse 69 09/08/24 08:10 Resp 16 09/08/24 08:10 BP 118/76 09/08/24 08:10 Pulse Ox 99 09/08/24 08:10 FiO2 Intake & Output 09/07/24 09/08/24 09/08/24 18:59 06:59 18:59 Intake Total 236 236 Output Total 303 Balance -67 236 Weight 53 kg 53 kg Intake: Oral 236 236 Output: Urine 300 Stool 3 Other: Voiding Method External Catheter External Catheter External Catheter # Bowel Movements 2 - Exam No acute distress, oriented 3. The patient is currently on 1 L of oxygen, with saturations of 100%. HEENT examination is grossly unremarkable. Mucous membranes are moist. No oral lesions. Neck supple. Full range of motion. No adenopathy thyromegaly or neck vein distention. Cardiovascular examination reveals regular rhythm rate. S1-S2 normal. No S3 or S4. No discernible murmur noted. Lungs reveal basilar crackles. No wheezes or rhonchi. Breath sounds are equal. Abdomen soft bowel sounds are heard. No masses or tenderness. Extremities are intact. No cyanosis clubbing or edema. Skin is without rash or lesion. Neurologic examination is brief but nonfocal. - Labs CBC & Chem 7: 09/08/24 05:55 09/08/24 05:55 Labs: Abnormal Lab Results - Last 24 Hours (Table) 09/08/24 09/08/24 Range/Units 05:55 05:55 RBC 3.40 L (3.80-5.40) m/uL Hgb 7.4 L (11.4-16.0) gm/dL Hct 28.1 L (34.0-46.0) % MCH 21.9 L (25.0-35.0) pg MCHC 26.5 L (31.0-37.0) g/dL RDW 22.0 H (11.5-15.5) % Plt Count 130 L (150-450) k/uL Potassium 3.0 L (3.5-5.1) mmol/L BUN 38 H (7-17) mg/dL Creatinine 1.51 H (0.52-1.04) mg/dL Calcium 8.2 L (8.4-10.2) mg/dL Microbiology - Last 24 Hours (Table) 09/05/24 12:46 Blood Culture - Preliminary Blood 09/05/24 12:30 Blood Culture - Preliminary Blood Assessment and Plan Assessment: Altered mental status of unclear etiology. Acute hypoxic respiratory failure secondary to bilateral pleural effusions left greater than right. Atrial fibrillation, anticoagulated with Eliquis. Acute on chronic anemia. Acute kidney injury. Troponin leak. History of hypertension. Hyperlipidemia. Hypothyroidism. Chronic kidney disease. Plan: Plan dated September 04, 2024. The patient is seen today in room 363. I explained to the family, that at this time, the patient is currently on diuretics, and hopefully that will improve the bilateral pleural effusions. The the effusions are moderate in size, but the 1 on the right being 6 cm of the one of the left 9 cm. She is at 100% on 2 L. She is not receiving any IV fluids. She continues on IV diuretics. Labs, x- rays, and medications are reviewed. We will continue to follow the patient, make recommendations in regard to thoracentesis as the week progresses. She is on Eliquis at this time, and that will have to be discontinued for 2 days prior to any procedure. Plan dated September 05, 2024. The patient appears to be doing relatively well. The patient is currently on 1 L of oxygen. The MRI did not show anything acute or subacute today. There was some changes as mentioned above. Labs, x-rays, and medications are reviewed. We will continue to follow, and make recommendations along the way. Plan dated September 06, 2024. The patient is seen today in room 363. She is on 1 L of oxygen. She continues on Rocephin. Procalcitonin level is normal. Antibiotic should be discontinued in my opinion. We will repeat an ultrasound of the chest to determine whether or not she is a candidate for thoracentesis. Eliquis is placed on hold. Labs, x-rays, and medications are all reviewed. Prognosis is guarded. Plan dated September 07, 2024. The patient is currently seen today in room 363. She is on 1 L of oxygen. Saturations are excellent. She is not manifesting any signs or symptoms of respiratory distress. The patient is not a candidate for thoracentesis at this time. We do not believe that she will be able to sit up at the bedside. Labs, x-rays, and medications are reviewed. We will continue to follow make recommendations where appropriate. Eliquis will be resumed. No additional recommendations are made. Plan dated September 08, 2024. The patient is seen today in room 363. The patient is not a candidate for thoracentesis at this time. She is very debilitated medically. She continues on 1 L of oxygen. Saturations are excellent. There is no evidence of respiratory distress. CT of the brain did not show any acute process. The patient does have areas of encephalomalacia, consistent with prior infarct. Labs, x-rays, and medications are reviewed. The patient's Eliquis was resumed. Time with Patient: Less than 30
[2024-09-08] MEDS: PIPERACILLIN-TAZOBACTAM 3.375 GM in SODIUM CHLORIDE 0.9% 100 ML IVPB SCH (14:29)
[2024-09-08] MEDS: PANTOPRAZOLE 40 MG/10 ML VIAL IVP SCH (14:29)
[2024-09-08] MEDS: POTASSIUM CHLORIDE ER 20 MEQ TAB.ER PO STA (14:29)
--- NOTE | 2024-09-08 14:49 | P.PN ---
Subjective Progress Note Date: 09/08/24 Principal diagnosis: Reason for follow-up is leukocytosis hypothermia/infection Patient is a 84-year-old female with a past medical history significant for hypertension hyperlipidemia osteoarthritis heart failure atrial fibrillation patient has been brought into the hospital for evaluation of confusion and decreased appetite patient noticed to be hypothermic did have elevated white count prompting this consultation. On today's evaluation that is 09/08/2024, the patient did have normalization of her temperature patient is breathing comfortably currently on 1 L nasal cannula oxygen however satting around 99% patient seem to be slightly more lethargic per the daughter at the bedside normally has been reported he did have some diarrhea with about 5-6 stools. Patient did have white count 9.1, creat is 1.51 blood cultures are currently pending Objective - Vital Signs Vital signs: Vital Signs Temp 97.3 F L 09/08/24 08:10 Pulse 69 09/08/24 08:10 Resp 16 09/08/24 08:10 BP 118/76 09/08/24 08:10 Pulse Ox 99 09/08/24 08:10 FiO2 Intake & Output 09/07/24 09/08/24 09/08/24 18:59 06:59 18:59 Intake Total 236 236 Output Total 303 Balance -67 236 Weight 53 kg 53 kg Intake: Oral 236 236 Output: Urine 300 Stool 3 Other: Voiding Method External Catheter External Catheter External Catheter # Bowel Movements 2 - Exam GENERAL DESCRIPTION: An elderly female lying in bed in no distress RESPIRATORY SYSTEM: Unlabored breathing , decreased breath sounds at bases HEART: S1 S2 regular rate and rhythm , ABDOMEN: Soft , no tenderness EXTREMITIES: No edema feet - Labs CBC & Chem 7: 09/08/24 05:55 09/08/24 05:55 Labs: Abnormal Lab Results - Last 24 Hours (Table) 09/08/24 09/08/24 Range/Units 05:55 05:55 RBC 3.40 L (3.80-5.40) m/uL Hgb 7.4 L (11.4-16.0) gm/dL Hct 28.1 L (34.0-46.0) % MCH 21.9 L (25.0-35.0) pg MCHC 26.5 L (31.0-37.0) g/dL RDW 22.0 H (11.5-15.5) % Plt Count 130 L (150-450) k/uL Potassium 3.0 L (3.5-5.1) mmol/L BUN 38 H (7-17) mg/dL Creatinine 1.51 H (0.52-1.04) mg/dL Calcium 8.2 L (8.4-10.2) mg/dL Microbiology - Last 24 Hours (Table) 09/05/24 12:46 Blood Culture - Preliminary Blood 09/05/24 12:30 Blood Culture - Preliminary Blood Assessment and Plan (1) Leukocytosis Current Visit: Yes Status: Acute Code(s): D72.829 - ELEVATED WHITE BLOOD CELL COUNT, UNSPECIFIED SNOMED Code(s): 368011604 (2) Abnormal chest x-ray Current Visit: Yes Status: Acute Code(s): R93.89 - ABNORMAL FINDINGS ON DX IMAGING OF OTH BODY STRUCTURES SNOMED Code(s): 615513514 (3) Altered mental status Current Visit: Yes Status: Acute Code(s): R41.82 - ALTERED MENTAL STATUS, UNSPECIFIED SNOMED Code(s): 518584624 Plan: 1patient presented to hospital with weakness lethargic now patient did have evidence of hypothermia did have elevated white count patient denies having any headache no neck rigidity underlying FIELD ORGAN[employer]ER infection less likely patient did have a cough some choking on food question of possible aspiration pneumonitis 2-blood cultures have been obtained which are currently pending chest x-ray with some effusion and infiltrate question of pneumonia 3-patient white count has normalized and the patient did have normalization of the temperature, on empiric Zosyn has developed antibiotic associated diarrhea we will add Questran for symptomatic relief 4her mental status still not explain on the basis of what we see clinically FIELD ORGANIZER infection/encephalitis less likely but not entirely excluded discussed with the neurologist we will go ahead and get anesthesia to do an LP CSF should be sent for glucose protein cell count and viral panel. Daughter at the bedside multiple question concern answered Dictation was produced using [employer] dictation software. please excuse any grammatical, word or spelling errors. Time with Patient: Less than 30
--- NOTE | 2024-09-08 15:26 | P.PN ---
Subjective Progress Note Date: 09/08/24 This is a 84-year-old female admitted with altered mental status changes, acute hypoxic respiratory failure and multiple other medical issues. Evaluated by neurology, neuro workup in progress. Keppra initiated yesterday, no seizure activity reported. reported EEG completed this morning, results pending, MRI and echo pending. Patient does not recognize PCP. Speech is slow ,family reports patient mixing up words and short of breath. Maintaining O2 sats of high 90s to 100% on 2 L nasal cannula. Ultrasound performed yesterday reported large bilateral pleural effusions both marked for possible thoracentesis,left greater than right; anticoagulated on Eliquis. Diuresing on Lasix IV push. blood pressure soft this morning. Bicarb 29, BUN 39, creatinine 1.36. On admission BNP 14,100, currently 17,500. 09/05/2024 require warming blanket to maintain axillary temperature 97.5. EEG completed reporting moderate to severe encephalopathy, no seizure activity. Keppra discontinued as per neurology, at family's request. Brain MRI reported no evidence of intracranial mass or acute/subacute infarct. Remote right occipital lobe and left cerebellum with encephalomalacia and miosis. Nonspecific white matter changes likely secondary to small vessel ischemic disease.Echo reported 6 normal LV function with severe mitral regurgitation, moderate pulmonary hypertension, moderate tricuspid regurgitation, No aortic stenosis, maintain O2 sats in the 90s on 1 L nasal cannula. Afebrile, WBC 12.7, hemoglobin 7.9, platelets 153. Electrolytes within normal limits. Renal function mildly worsened, BUN 44 creatinine 1.42. Diuretics converted from IV push to oral as per cardiology 09/06/2024 echo reported normal LV size and systolic function with severe mitral regurgitation eccentric and also central with multiple jets, moderate pulmonary hypertension, moderate tricuspid regurgitation, no aortic stenosis, no significant pericardial effusion. evaluated by infectious disease with recommendations noted. Continues on Zosyn. Blood cultures obtained, results pending. CRP elevated, 2.1, normal procalcitonin. Continues with warming blanket, axillary 97.5. WBC normal. chest x-ray completed yesterday, reported moderate left pleural effusion, right lower lobe infiltrates, stable. Eliquis has been temporarily discontinued, for potential tap. Transition to oral Lasix yesterday, creatinine mildly increased. Eleven 7.5, platelets 140. Sensorium slowly improving,recognizes PCP, Dr. Kwong today. 09/07/2024 reports rough night, did not sleep well .continues on Zosyn , preliminary blood cultures reporting no growth after 24 hours,maintaining tem peratures within normal limits off the warming blanket, currently 98.4. Procalcitonin 0.14. sensorium continues to improve, alert, conversing more. Denies chest pain, palpitations or shortness of breath. 09/08/2024 patient has been off of warming blanket since yesterday afternoon, maintaining temperatures of 97.3-97.5. Preliminary blood cultures reporting no growth after 48 hours. Maintaining O2 sats in the mid to high 90s on 1 L nasal cannula O2 .yesterday patient was much more alert and talking- today patient returned to increased lethargy, sleeping, speech slower, whispering. Follows simple commands with prompting. 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 Nonspecific white matter changes likely secondary to chronic small vessel ischemic disease. Hemoglobin 7.4, platelets 130, potassium 3, magnesium 2.2, bicarb 28 BUN 38, creatinine 1.51. Maintained on empiric Zosyn. daughter reports 5 or 6 episodes of diarrhea within the last 12 hours. Objective - Vital Signs Vital signs: Vital Signs Temp 97.3 F L 09/08/24 08:10 Pulse 69 09/08/24 08:10 Resp 16 09/08/24 08:10 BP 118/76 09/08/24 08:10 Pulse Ox 99 09/08/24 08:10 FiO2 Intake & Output 09/07/24 09/08/24 09/08/24 18:59 06:59 18:59 Intake Total 236 236 Output Total 303 Balance -67 236 Weight 53 kg 53 kg Intake: Oral 236 236 Output: Urine 300 Stool 3 Other: Voiding Method External Catheter External Catheter External Catheter # Bowel Movements 2 - Exam GENERAL: alert and oriented x2, alert to person and place NAD, HEENT: Normocephalic, atraumatic, pupils equal, positive conjunctival pallor. CARDIOVASCULAR: S1 and S2 present. Systolic murmurs, rubs, or gallops. PULMONARY: Unlabored at rest, equal air entry, fine bibasilar crackles. ABDOMEN: Soft, nontender, nondistended, normoactive bowel sounds. No palpable organomegaly. EXTREMITIES: No cyanosis, clubbing, or pedal edema. NEUROLOGICAL: Gross neurological examination did not reveal any focal deficits. SKIN: Warm and dry, no rashes. Microbiology 09/05/24 12:46 Blood Blood Culture - Preliminary 09/05/24 12:30 Blood Blood Culture - Preliminary - Labs CBC & Chem 7: 09/08/24 05:55 09/08/24 05:55 Labs: Abnormal Lab Results - Last 24 Hours (Table) 09/08/24 09/08/24 Range/Units 05:55 05:55 RBC 3.40 L (3.80-5.40) m/uL Hgb 7.4 L (11.4-16.0) gm/dL Hct 28.1 L (34.0-46.0) % MCH 21.9 L (25.0-35.0) pg MCHC 26.5 L (31.0-37.0) g/dL RDW 22.0 H (11.5-15.5) % Plt Count 130 L (150-450) k/uL Potassium 3.0 L (3.5-5.1) mmol/L BUN 38 H (7-17) mg/dL Creatinine 1.51 H (0.52-1.04) mg/dL Calcium 8.2 L (8.4-10.2) mg/dL Microbiology - Last 24 Hours (Table) 09/05/24 12:46 Blood Culture - Preliminary Blood 09/05/24 12:30 Blood Culture - Preliminary Blood Assessment and Plan Assessment: Altered mental status, accompanied by hypothermia, acute moderate encephalopathy, possibly metabolic , etiology unclear. 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 Neurology following. Acute hypoxic respiratory failure secondary to bilateral pleural effusions Acute on chronic CHF, systolic dysfunction EF 40 to 45% Persistent atrial fibrillation with controlled ventricular rate, anticoagulated with Eliquis Normal LV function Moderate pulmonary hypertension Severe mitral regurgitation Moderate tricuspid regurgitation Chronic kidney disease stage III-IV Elevated troponin, secondary to CKD, cardiology following Hypertension Hypothyroidism Possible vascular dementia Plan: Continue on current medication regimen ,monitoring and symptomatic treatment. Further neurology recommendations pending their review of repeat CT. potassium supplemented. blood cultures in progress, antibiotics as per infectious disease. Lactobacillus, Questran added related to possible antibioti c associated diarrhea. Prognosis guarded given multiple complex medical issues The impression and plan of care has been dictated as directed. : I performed a history and examination of this patient, discussed the same with the dictator. I agree with the dictator's note ,documented as a scribe. Any additional findings or plans will be noted.
--- NOTE | 2024-09-08 15:41 | P.PN ---
Subjective Progress Note Date: 09/08/24 I am following up with the patient and per family members today she is doing worse and more confused. Objective - Vital Signs Vital signs: Vital Signs Temp 97.3 F L 09/08/24 14:00 Pulse 76 09/08/24 14:00 Resp 16 09/08/24 14:00 BP 108/56 09/08/24 14:00 Pulse Ox 94 L 09/08/24 14:00 FiO2 Intake & Output 09/07/24 09/08/24 09/08/24 18:59 06:59 18:59 Intake Total 236 236 Output Total 303 Balance -67 236 Weight 53 kg 53 kg Intake: Oral 236 236 Output: Urine 300 Stool 3 Other: Voiding Method External Catheter External Catheter External Catheter # Bowel Movements 2 - Exam General: Lying in bed and is not in acute distress. Neuro: Limited. Is moderately drowsy and is briefly awakeable to voice. She is oriented to self and place and is very hypophonic upon responding. She is able to name her name correctly. She kept on saying "leave me alone" She is following simple commands. Is tracking. Spontaneously lifted the left upper extremity above gravity. Some of the workup during this hospital visit consisted of: Creatinine is 1.35, BUN is 36. Creatinine is trending up to 1.42-->1.51 Troponin is 0.054 and most recent troponin is 0.038 Vitamin B12: 433 TSH: 0.041 and free T4: 2.34 Ammonia <9 CT of the head is reported as no acute intracranial process. I personally reviewed the CT and agree with the report. 2D echo was reported as normal left atrial size systolic function with severe mitral regurgitation. Moderate pulmonary hypertension. Moderate tricuspid regurgitation MRI of the brain is reported as no evidence of intracranial mass or acute/subacute infarct. Remote right occipital lobe and left cerebellum with encephalomalacia and gliosis. EEG is abnormal. The background slowing is suggestive of moderate to severe encephalopathy. Otherwise there is no focal slowing, [employer] discharge or seizure on the EEG. - Labs CBC & Chem 7: 09/08/24 05:55 09/08/24 05:55 Labs: Abnormal Lab Results - Last 24 Hours (Table) 09/08/24 09/08/24 Range/Units 05:55 05:55 RBC 3.40 L (3.80-5.40) m/uL Hgb 7.4 L (11.4-16.0) gm/dL Hct 28.1 L (34.0-46.0) % MCH 21.9 L (25.0-35.0) pg MCHC 26.5 L (31.0-37.0) g/dL RDW 22.0 H (11.5-15.5) % Plt Count 130 L (150-450) k/uL Potassium 3.0 L (3.5-5.1) mmol/L BUN 38 H (7-17) mg/dL Creatinine 1.51 H (0.52-1.04) mg/dL Calcium 8.2 L (8.4-10.2) mg/dL Microbiology - Last 24 Hours (Table) 09/05/24 12:46 Blood Culture - Preliminary Blood 09/05/24 12:30 Blood Culture - Preliminary Blood Assessment and Plan Assessment: This is an 84-year-old man who presents emergency department because of episode of confusion and according to she had head shaking lasting for 2 minutes then afterwards she was somewhat confused and the was concerned seems like a seizure. She does not have any history of stroke. Episode of confusion and hypothermia of unknown etiology rule out underlying infection. Confusion could be due to abnormal thyroid and component of metabolic encephalopathy. EEG is negative for any seizure discharges. MRI of the brain is negative for any acute or subacute stroke--today is she more confused (yesterday there was improvement). This does not seems typical meningoencephalitis and yesterday patient was doing much better compared to today Episode of head shaking with confusion: Unknown exact etiology of encephalopathy. Routine EEG was negative for any seizure discharges. I am concerned about underlying seizure because according to the family members she had staring off episodes at times and head shaking but they want to hold off on any any antiseizure medication at this time. Severe mitral regurgitation. Respiratory distress and probable due to severe Pulmonary hypertension Moderate tricuspid regurgitation Slightly elevated troponin History of stroke/TIA according to medical record but patient and her do not remember that she had a stroke. History of atrial fibrillation on Eliquis Hypertension History of congestive heart failure Chronic kidney insufficiency Hypothyroidism Chronic tobacco use Plan: Will get repeat CT head w/o, routine EEG since more confused. Family still wants the antiseizure to be placed on hold. During this hospital visit she was placed on Keppra but it was stopped couple days ago since family members felt was causing her confused. Recommend patient to be on Vimpat 50 mg twice daily since patient has blank stares with head shaking per family members and that can be considered as an outpatient with her neurologist since family wants to hold off on any antiseizure medication at this time. ID team is on board. I spoke with I.D. team later and he stated he will pursue with lumbar puncture. Patient has abnormal thyroid level and will defer the management to primary team Seizure precautions seizure pads Cardiology is on board Pulmonary team is on board and they are consulted for pulmonary edema Patient is on Eliquis 2.5 mg twice daily her home dose. Will defer the rest of the medical management to primary other specialist. The plan is discussed with her and daughter who are at bedside. Dr. Boyle will resume neurology service tomorrow A.M. and Dr. Mar will resume this Wednesday A.M. Time with Patient: Less than 30
[2024-09-08] MEDS: LACTOBACILLUS ACIDOPHILUS/PECT 1 EACH CAPSULE PO SCH (16:44)
[2024-09-08] MEDS: CHOLESTYRAMINE (WITH SUGAR) 4 GM PACKET PO SCH (18:35)
[2024-09-08] MEDS: QUEtiapine 25 MG TAB PO PRN (22:32)
[2024-09-08 22:55] LABS: HSV I IgG Interp Positive (Negative); HSV II IgG Interp Negative (Negative)
--- NOTE | 2024-09-09 02:35 | EEG ---
ELECTROENCEPHALOGRAM REPORT CLINICAL HISTORY: This is an 84-year-old woman with altered mental status. The video EEG is obtained to evaluate for seizure epileptiform activity. EEG TYPE: This is a routine 21-channel EEG with video using the 10/20 electrode placement system. RELEVANT MEDICATIONS: The patient is not on any antiseizure medication. DESCRIPTION: Wakefulness and drowsiness are obtained. During awake state, the background consists of [id number] voltage of 7 to 7.5 hertz activity. There was no physiological stage 2 sleep architecture. There is no focal slowing. Interictal and ictal is none. ACTIVATION PROCEDURE: Photic stimulation did not evoke a posterior driving response. There is no abnormality during the photic stimulation. Hyperventilation is not performed. There is notation of atrial fibrillation during the EEG by the paint prep technician. CLINICAL INTERPRETATION: This is an abnormal routine EEG. The background slowing is suggestive of mild encephalopathy. There is no focal slowing, epileptiform discharges, or seizure on the EEG. There is Afib noted on this EEG report and the patient does have underlying history of Afib. Clinical correlation is recommended. MMODL / IJN: [id number] /
--- NOTE | 2024-09-09 12:32 | P.PN ---
Subjective Progress Note Date: 09/09/24 The patient is an 84-year-old female who is seen in neurologic follow-up on September 09, 2024, in collaboration with Maribel Olmstead, via teleneurology. Patient's chart has been reviewed. Apparently the patient has been worked up with multiple tests to assess for an etiology for her confusion. She has had 2 EEGs which showed no signs of seizure activity. Brain imaging is normal. Lumbar puncture is pending. Objective - Vital Signs Vital signs: Vital Signs Temp 97.6 F 09/09/24 00:00 Pulse 77 09/09/24 00:00 Resp 16 09/09/24 00:00 BP 106/59 09/09/24 00:00 Pulse Ox 94 L 09/09/24 09:27 FiO2 Intake & Output 09/08/24 09/09/24 09/09/24 18:59 06:59 18:59 Intake Total 236 180 Output Total 900 Balance 236 -900 180 Weight 53 kg 57.2 kg Intake: Oral 236 180 Output: Urine 900 Other: Voiding Method External Catheter External Catheter - Exam General: The patient is reclining in the bed. She is able to be awakened. She is in no acute distress. She is on 1 L nasal cannula. The patient is very cold to touch HEENT: Head is atraumatic, normocephalic. Fundus not visualized. There is no scleral icterus. Mucous members are moist. Neck: Supple without carotid bruits Neurological examination Mental status: The patient is able to follow some simple commands. She is nonverbal. She does however state "help". Cranial nerves: Pupils are equal at 3 mm and reactive. Other cranial nerves are not assessed at this time Motor: The patient is able to raise her legs from the bed. Strength is (right/left) 3/3. Ankle plantar flexors 5/3. Early Interventionist strength 5/4. Coordination: The patient is able to perform [id number] testing. - Labs CBC & Chem 7: 09/08/24 05:55 09/08/24 05:55 Labs: Abnormal Lab Results - Last 24 Hours (Table) 09/08/24 Range/Units 12:00 HSV I IgG Interpret Positive A (Negative) Microbiology - Last 24 Hours (Table) 09/05/24 12:46 Blood Culture - Preliminary Blood 09/05/24 12:30 Blood Culture - Preliminary Blood Assessment and Plan Assessment: Altered mental status of unclear etiology-The patient appears to be somewhat improved today Acute hypoxic respiratory failure secondary to bilateral pleural effusions left greater than right. Atrial fibrillation, anticoagulated with Eliquis. Acute on chronic anemia. Acute kidney injury. Troponin leak. History of hypertension. Hyperlipidemia. Hypothyroidism. Chronic kidney disease Plan: 1. Await lumbar puncture 2. Continue supportive care 3. Consider physical therapy evaluation and treatment Time with Patient: Greater than 30 (40 minutes were spent caring for this patient today including, obtaining a history, examining the patient, reviewing imaging, chart documentation, labs, placing orders and creating this note)
--- NOTE | 2024-09-09 13:13 | P.PN ---
Subjective Progress Note Date: 09/09/24 This is a 84-year-old female admitted with altered mental status changes, acute hypoxic respiratory failure and multiple other medical issues. Evaluated by neurology, neuro workup in progress. Keppra initiated yesterday, no seizure activity reported. reported EEG completed this morning, results pending, MRI and echo pending. Patient does not recognize PCP. Speech is slow ,family reports patient mixing up words and short of breath. Maintaining O2 sats of high 90s to 100% on 2 L nasal cannula. Ultrasound performed yesterday reported large bilateral pleural effusions both marked for possible thoracentesis,left greater than right; anticoagulated on Eliquis. Diuresing on Lasix IV push. blood pressure soft this morning. Bicarb 29, BUN 39, creatinine 1.36. On admission BNP 14,100, currently 17,500. 09/05/2024 require warming blanket to maintain axillary temperature 97.5. EEG completed reporting moderate to severe encephalopathy, no seizure activity. Keppra discontinued as per neurology, at family's request. Brain MRI reported no evidence of intracranial mass or acute/subacute infarct. Remote right occipital lobe and left cerebellum with encephalomalacia and miosis. Nonspecific white matter changes likely secondary to small vessel ischemic disease.Echo reported 6 normal LV function with severe mitral regurgitation, moderate pulmonary hypertension, moderate tricuspid regurgitation, No aortic stenosis, maintain O2 sats in the 90s on 1 L nasal cannula. Afebrile, WBC 12.7, hemoglobin 7.9, platelets 153. Electrolytes within normal limits. Renal function mildly worsened, BUN 44 creatinine 1.42. Diuretics converted from IV push to oral as per cardiology 09/06/2024 echo reported normal LV size and systolic function with severe mitral regurgitation eccentric and also central with multiple jets, moderate pulmonary hypertension, moderate tricuspid regurgitation, no aortic stenosis, no significant pericardial effusion. evaluated by infectious disease with recommendations noted. Continues on Zosyn. Blood cultures obtained, results pending. CRP elevated, 2.1, normal procalcitonin. Continues with warming blanket, axillary 97.5. WBC normal. chest x-ray completed yesterday, reported moderate left pleural effusion, right lower lobe infiltrates, stable. Eliquis has been temporarily discontinued, for potential tap. Transition to oral Lasix yesterday, creatinine mildly increased. Eleven 7.5, platelets 140. Sensorium slowly improving,recognizes PCP, Dr. Kwong today. 09/07/2024 reports rough night, did not sleep well .continues on Zosyn , preliminary blood cultures reporting no growth after 24 hours,maintaining tem peratures within normal limits off the warming blanket, currently 98.4. Procalcitonin 0.14. sensorium continues to improve, alert, conversing more. Denies chest pain, palpitations or shortness of breath. 09/08/2024 patient has been off of warming blanket since yesterday afternoon, maintaining temperatures of 97.3-97.5. Preliminary blood cultures reporting no growth after 48 hours. Maintaining O2 sats in the mid to high 90s on 1 L nasal cannula O2 .yesterday patient was much more alert and talking- today patient returned to increased lethargy, sleeping, speech slower, whispering. Follows simple commands with prompting. 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 Nonspecific white matter changes likely secondary to chronic small vessel ischemic disease. Hemoglobin 7.4, platelets 130, potassium 3, magnesium 2.2, bicarb 28 BUN 38, creatinine 1.51. Maintained on empiric Zosyn. daughter reports 5 or 6 episodes of diarrhea within the last [address] Garcia covering for Dr. Kwong .patient seen and examined. Vital signs this morning show temperature 97.6, heart rate 77, blood pressure 106/59. No acute issues overnight. Patient is lethargic. Family at the bedside REVIEW OF SYSTEMS: Review of system cannot be obtained as patient is lethargic PHYSICAL EXAMINATION: GENERAL: The patient is lethargic, ill looking HEENT: Pupils are round and equally reacting to light. EOMI. No scleral icterus. No conjunctival pallor. Normocephalic, atraumatic. No pharyngeal erythema. No thyromegaly. CARDIOVASCULAR: S1 and S2 present. No murmurs, rubs, or gallops. PULMONARY: Diminished breath sounds at the bases, no wheezing or crackles. ABDOMEN: Soft, nontender, nondistended, normoactive bowel sounds. No palpable organomegaly. MUSCULOSKELETAL: No joint swelling or deformity. EXTREMITIES: No cyanosis, clubbing, or pedal edema. NEUROLOGICAL: Gross neurological examination did not reveal any focal deficits. SKIN: No rashes. Assessment and plan Altered mental status, accompanied by hypothermia, acute moderate encephalopathy, possibly metabolic , etiology unclear. 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 Neurology following. Acute hypoxic respiratory failure secondary to bilateral pleural effusions Acute on chronic CHF, systolic dysfunction EF 40 to 45% Persistent atrial fibrillation with controlled ventricular rate, anticoagulated with Eliquis Normal LV function Moderate pulmonary hypertension Severe mitral regurgitation Moderate tricuspid regurgitation Chronic kidney disease stage III-IV Elevated troponin, secondary to CKD, cardiology following Hypertension Hypothyroidism Possible vascular dementia Monitor vital signs Monitor CBC Monitor CMP Continue telemetry monitoring Encourage use of incentive spirometer Continue IV Zosyn Continue Eliquis Continue Questran EEG done on 09/08 showed abnormal EEG, background slowing suggestive of encephalopathy. Neurology following ID following, consulted anesthesia for lumbar puncture Labs and medication were reviewed.. Continue same treatment. Continue with symptomatic treatment. Resume home medication. Monitor labs and vitals. DVT and GI prophylaxis. Further recommendations as per clinical course of the patient Dictation was produced using [employer] dictation software. please excuse any grammatical, word or spelling errors. Objective - Vital Signs Vital signs: Vital Signs Temp 97.6 F 09/09/24 00:00 Pulse 77 09/09/24 00:00 Resp 16 09/09/24 00:00 BP 106/59 09/09/24 00:00 Pulse Ox 94 L 09/09/24 09:27 FiO2 Intake & Output 09/08/24 09/09/24 09/09/24 18:59 06:59 18:59 Intake Total 236 180 Output Total 900 Balance 236 -900 180 Weight 53 kg 57.2 kg Intake: Oral 236 180 Output: Urine 900 Other: Voiding Method External Catheter External Catheter - Labs CBC & Chem 7: 09/08/24 05:55 09/08/24 05:55 Labs: Abnormal Lab Results - Last 24 Hours (Table) 09/08/24 Range/Units 12:00 HSV I IgG Interpret Positive A (Negative) Microbiology - Last 24 Hours (Table) 09/05/24 12:46 Blood Culture - Preliminary Blood 09/05/24 12:30 Blood Culture - Preliminary Blood
--- NOTE | 2024-09-09 15:02 | P.PN ---
Subjective Progress Note Date: 09/09/24 Principal diagnosis: Reason for follow-up is leukocytosis hypothermia/infection Patient is a 84-year-old female with a past medical history significant for hypertension hyperlipidemia osteoarthritis heart failure atrial fibrillation patient has been brought into the hospital for evaluation of confusion and decreased appetite patient noticed to be hypothermic did have elevated white count prompting this consultation. On today's evaluation that is 09/09/2024, patient temperature has been normalized without any warming blanket she is currently breathing comfortably on 1 L nasal oxygen daughter mention mentation has slightly improved and has eaten a bit more today no vomiting or diarrhea has been reported. No new lab has been repeated today HSV-1 serology positive Objective - Vital Signs Vital signs: Vital Signs Temp 97.1 F L 09/09/24 11:47 Pulse 66 09/09/24 11:47 Resp 20 09/09/24 11:47 BP 110/58 09/09/24 11:47 Pulse Ox 99 09/09/24 11:47 FiO2 Intake & Output 09/08/24 09/09/24 09/09/24 18:59 06:59 18:59 Intake Total 236 180 Output Total 900 Balance 236 -900 180 Weight 53 kg 57.2 kg Intake: Oral 236 180 Output: Urine 900 Other: Voiding Method External Catheter External Catheter External Catheter # Bowel Movements 1 - Exam GENERAL DESCRIPTION: An elderly female lying in bed in no distress RESPIRATORY SYSTEM: Unlabored breathing , decreased breath sounds at bases HEART: S1 S2 regular rate and rhythm , ABDOMEN: Soft , no tenderness EXTREMITIES: No edema feet - Labs CBC & Chem 7: 09/08/24 05:55 09/08/24 05:55 Labs: Abnormal Lab Results - Last 24 Hours (Table) 09/08/24 Range/Units 12:00 HSV I IgG Interpret Positive A (Negative) Microbiology - Last 24 Hours (Table) 09/05/24 12:46 Blood Culture - Preliminary Blood 09/05/24 12:30 Blood Culture - Preliminary Blood Assessment and Plan (1) Leukocytosis Current Visit: Yes Status: Acute Code(s): D72.829 - ELEVATED WHITE BLOOD CELL COUNT, UNSPECIFIED SNOMED Code(s): 953279337 (2) Abnormal chest x-ray Current Visit: Yes Status: Acute Code(s): R93.89 - ABNORMAL FINDINGS ON DX IMAGING OF OTH BODY STRUCTURES SNOMED Code(s): 008303872 (3) Altered mental status Current Visit: Yes Status: Acute Code(s): R41.82 - ALTERED MENTAL STATUS, UNSPECIFIED SNOMED Code(s): 458649846 Plan: 1patient presented to hospital with weakness lethargic now patient did have evidence of hypothermia did have elevated white count patient denies having any headache no neck rigidity underlying [employer] infection less likely patient did have a cough some choking on food question of possible aspiration pneumonitis 2-blood cultures have been obtained which are currently pending chest x-ray with some effusion and infiltrate question of pneumonia 3-patient white count has normalized and the patient did have normalization of the temperature, on empiric Zosyn has developed antibiotic associated diarrhea, continue with Questran for symptomatic relief 4her mental status still not explain on the basis of what we see clinically [employer] infection/encephalitis less likely but not entirely excluded currently waiting for LP scheduled for Wednesday as the patient needs to be off Eliquis for 2 days before the procedure doctor is aware of it and agreeable to the risk associated with it Daughter at the bedside multiple question concern answered Dictation was produced using [employer] dictation software. please excuse any grammatical, word or spelling errors. Time with Patient: Less than 30
[2024-09-10 07:15] LABS: Anisocytosis Moderate; Basophils % (A) 0 %; Eosinophils # (A) 0.2 k/uL (0-0.7); Eosinophils % (A) 2 %; HCT 28.1 % (34.0-46.0); HGB 7.4 gm/dL (11.4-16.0); Hypochromasia Marked; Lymphocytes # (A) 1.2 k/uL (1.0-4.8); Lymphocytes % (A) 14 %; MCH 21.9 pg (25.0-35.0); MCHC 26.3 g/dL (31.0-37.0); Microcytosis Slight; Monocytes # (A) 0.7 k/uL (0-1.0); Monocytes % (A) 8 %; Neutrophils # (A) 6.4 k/uL (1.3-7.7); Neutrophils % (A) 74 %; Platelet Count 156 k/uL (150-450); Poikilocytosis Slight; RBC 3.38 m/uL (3.80-5.40); RDW 21.9 % (11.5-15.5); WBC 8.7 k/uL (3.8-10.6)
[2024-09-10 07:32] LABS: ALT 9 U/L (4-34); AST 13 U/L (14-36); African American GFR (CKD) 40 (>60 ml/min/1.73 sqM); Albumin 2.5 g/dL (3.5-5.0); Alkaline Phosphatase 52 U/L (38-126); Anion Gap 3 mmol/L; Blood Urea Nitrogen 34 mg/dL (7-17); Calcium 8.2 mg/dL (8.4-10.2); Carbon Dioxide 34 mmol/L (22-30); Chloride 106 mmol/L (98-107); Glucose 83 mg/dL (74-99); Non-African American GFR(CKD) 35 (>60 ml/min/1.73 sqM); Potassium 3.5 mmol/L (3.5-5.1); Sodium 143 mmol/L (137-145); Total Bilirubin 0.5 mg/dL (0.2-1.3); Total Protein 5.4 g/dL (6.3-8.2)
--- NOTE | 2024-09-10 13:13 | P.PN ---
Subjective Progress Note Date: 09/10/24 This is a 84-year-old female admitted with altered mental status changes, acute hypoxic respiratory failure and multiple other medical issues. Evaluated by neurology, neuro workup in progress. Keppra initiated yesterday, no seizure activity reported. reported EEG completed this morning, results pending, MRI and echo pending. Patient does not recognize PCP. Speech is slow ,family reports patient mixing up words and short of breath. Maintaining O2 sats of high 90s to 100% on 2 L nasal cannula. Ultrasound performed yesterday reported large bilateral pleural effusions both marked for possible thoracentesis,left greater than right; anticoagulated on Eliquis. Diuresing on Lasix IV push. blood pressure soft this morning. Bicarb 29, BUN 39, creatinine 1.36. On admission BNP 14,100, currently 17,500. 09/05/2024 require warming blanket to maintain axillary temperature 97.5. EEG completed reporting moderate to severe encephalopathy, no seizure activity. Keppra discontinued as per neurology, at family's request. Brain MRI reported no evidence of intracranial mass or acute/subacute infarct. Remote right occipital lobe and left cerebellum with encephalomalacia and miosis. Nonspecific white matter changes likely secondary to small vessel ischemic disease.Echo reported 6 normal LV function with severe mitral regurgitation, moderate pulmonary hypertension, moderate tricuspid regurgitation, No aortic stenosis, maintain O2 sats in the 90s on 1 L nasal cannula. Afebrile, WBC 12.7, hemoglobin 7.9, platelets 153. Electrolytes within normal limits. Renal function mildly worsened, BUN 44 creatinine 1.42. Diuretics converted from IV push to oral as per cardiology 09/06/2024 echo reported normal LV size and systolic function with severe mitral regurgitation eccentric and also central with multiple jets, moderate pulmonary hypertension, moderate tricuspid regurgitation, no aortic stenosis, no significant pericardial effusion. evaluated by infectious disease with recommendations noted. Continues on Zosyn. Blood cultures obtained, results pending. CRP elevated, 2.1, normal procalcitonin. Continues with warming blanket, axillary 97.5. WBC normal. chest x-ray completed yesterday, reported moderate left pleural effusion, right lower lobe infiltrates, stable. Eliquis has been temporarily discontinued, for potential tap. Transition to oral Lasix yesterday, creatinine mildly increased. Eleven 7.5, platelets 140. Sensorium slowly improving,recognizes PCP, Dr. Kwong today. 09/07/2024 reports rough night, did not sleep well .continues on Zosyn , preliminary blood cultures reporting no growth after 24 hours,maintaining tem peratures within normal limits off the warming blanket, currently 98.4. Procalcitonin 0.14. sensorium continues to improve, alert, conversing more. Denies chest pain, palpitations or shortness of breath. 09/08/2024 patient has been off of warming blanket since yesterday afternoon, maintaining temperatures of 97.3-97.5. Preliminary blood cultures reporting no growth after 48 hours. Maintaining O2 sats in the mid to high 90s on 1 L nasal cannula O2 .yesterday patient was much more alert and talking- today patient returned to increased lethargy, sleeping, speech slower, whispering. Follows simple commands with prompting. 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 Nonspecific white matter changes likely secondary to chronic small vessel ischemic disease. Hemoglobin 7.4, platelets 130, potassium 3, magnesium 2.2, bicarb 28 BUN 38, creatinine 1.51. Maintained on empiric Zosyn. daughter reports 5 or 6 episodes of diarrhea within the last [address] Garcia covering for Dr. Kwong .patient seen and examined. Vital signs this morning show temperature 97.6, heart rate 77, blood pressure 106/59. No acute issues overnight. Patient is lethargic. Family at the bedside 09/10. Patient seen and examined.Blood work done this morning showed WBC 8.7, hemoglobin 7.4, platelet count 156, sodium 143, potassium 3.5, BUN 34, creatinine 1.37. Daughter at the bedside. Discussed with her, she is not sure about LP, wants to discuss with Dr. Kwong before proceeding with t. REVIEW OF SYSTEMS: Review of system cannot be obtained as patient is lethargic PHYSICAL EXAMINATION: GENERAL: The patient is lethargic, ill looking HEENT: Pupils are round and equally reacting to light. EOMI. No scleral icterus. No conjunctival pallor. Normocephalic, atraumatic. No pharyngeal erythema. No thyromegaly. CARDIOVASCULAR: S1 and S2 present. No murmurs, rubs, or gallops. PULMONARY: Diminished breath sounds at the bases, no wheezing or crackles. ABDOMEN: Soft, nontender, nondistended, normoactive bowel sounds. No palpable organomegaly. MUSCULOSKELETAL: No joint swelling or deformity. EXTREMITIES: No cyanosis, clubbing, or pedal edema. NEUROLOGICAL: Gross neurological examination did not reveal any focal deficits. SKIN: No rashes. Assessment and plan Altered mental status, accompanied by hypothermia, acute moderate encephalopathy, possibly metabolic , etiology unclear. 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 Neurology following. Acute hypoxic respiratory failure secondary to bilateral pleural effusions Acute on chronic CHF, systolic dysfunction EF 40 to 45% Persistent atrial fibrillation with controlled ventricular rate, anticoagulated with Eliquis Normal LV function Moderate pulmonary hypertension Severe mitral regurgitation Moderate tricuspid regurgitation Chronic kidney disease stage III-IV Elevated troponin, secondary to CKD, cardiology following Hypertension Hypothyroidism Possible vascular dementia Monitor vital signs Monitor CBC Monitor CMP Continue telemetry monitoring Encourage use of incentive spirometer Continue IV Zosyn Eliquis on hold in preparation for lumbar puncture Continue Questran EEG done on 09/08 showed abnormal EEG, background slowing suggestive of encephalopathy. Neurology following ID following, consulted anesthesia for lumbar puncture Labs and medication were reviewed.. Continue same treatment. Continue with symptomatic treatment. Resume home medication. Monitor labs and vitals. DVT and GI prophylaxis. Further recommendations as per clinical course of the pat ient Dictation was produced using [employer] dictation software. please excuse any grammatical, word or spelling errors. Objective - Vital Signs Vital signs: Vital Signs Temp 97.2 F L 09/10/24 08:00 Pulse 86 09/10/24 08:00 Resp 20 09/10/24 08:00 BP 119/70 09/10/24 08:00 Pulse Ox 99 09/10/24 08:00 FiO2 Intake & Output 09/09/24 09/10/24 09/10/24 18:59 06:59 18:59 Intake Total 640 Balance 640 Weight 55.5 kg Intake: Intake, IV Titration 100 Amount Piperacillin-Tazobactam 3 100 .375 gm In Sodium Chloride 0.9% 100 ml @ 25 mls/hr IVPB Q12H [facility] Rx# :[id number] Oral 540 Other: Voiding Method External Catheter External Catheter External Catheter # Bowel Movements 1 - Labs CBC & Chem 7: 09/10/24 06:47 09/10/24 06:47 Labs: Abnormal Lab Results - Last 24 Hours (Table) 09/10/24 09/10/24 Range/Units 06:47 06:47 RBC 3.38 L (3.80-5.40) m/uL Hgb 7.4 L (11.4-16.0) gm/dL Hct 28.1 L (34.0-46.0) % MCH 21.9 L (25.0-35.0) pg MCHC 26.3 L (31.0-37.0) g/dL RDW 21.9 H (11.5-15.5) % Carbon Dioxide 34 H (22-30) mmol/L BUN 34 H (7-17) mg/dL Creatinine 1.37 H (0.52-1.04) mg/dL Calcium 8.2 L (8.4-10.2) mg/dL AST 13 L (14-36) U/L Total Protein 5.4 L (6.3-8.2) g/dL Albumin 2.5 L (3.5-5.0) g/dL
--- NOTE | 2024-09-10 14:33 | P.PN ---
Subjective Progress Note Date: 09/10/24 Principal diagnosis: Reason for follow-up is leukocytosis hypothermia/infection Patient is a 84-year-old female with a past medical history significant for hypertension hyperlipidemia osteoarthritis heart failure atrial fibrillation patient has been brought into the hospital for evaluation of confusion and decreased appetite patient noticed to be hypothermic did have elevated white count prompting this consultation. On today's evaluation that is 09/10/2024, Patient is afebrile patient is currently on 2 L nasal cannula oxygen and seem to be breathing comfortably m entation remains to be same as yesterday as reported by the daughter currently being fed by the daughter at the bedside no choking on the food vomiting or any worsening diarrhea reported. Patient white count is 8.7, creatinine is 1.37 blood culture have been negative so far Objective - Vital Signs Vital signs: Vital Signs Temp 97.2 F L 09/10/24 11:45 Pulse 68 09/10/24 11:45 Resp 20 09/10/24 11:45 BP 113/62 09/10/24 11:45 Pulse Ox 100 09/10/24 11:45 FiO2 Intake & Output 09/09/24 09/10/24 09/10/24 18:59 06:59 18:59 Intake Total 640 420 Output Total 400 Balance 240 420 Weight 55.5 kg Intake: Intake, IV Titration 100 Amount Piperacillin-Tazobactam 3 100 .375 gm In Sodium Chloride 0.9% 100 ml @ 25 mls/hr IVPB Q12H [facility] Rx# :[id number] Oral 540 420 Output: Urine 400 Other: Voiding Method External Catheter External Catheter External Catheter # Bowel Movements 1 1 - Exam GENERAL DESCRIPTION: An elderly female lying in bed in no distress RESPIRATORY SYSTEM: Unlabored breathing , decreased breath sounds at bases HEART: S1 S2 regular rate and rhythm , ABDOMEN: Soft , no tenderness EXTREMITIES: No edema feet - Labs CBC & Chem 7: 09/10/24 06:47 09/10/24 06:47 Labs: Abnormal Lab Results - Last 24 Hours (Table) 09/10/24 09/10/24 Range/Units 06:47 06:47 RBC 3.38 L (3.80-5.40) m/uL Hgb 7.4 L (11.4-16.0) gm/dL Hct 28.1 L (34.0-46.0) % MCH 21.9 L (25.0-35.0) pg MCHC 26.3 L (31.0-37.0) g/dL RDW 21.9 H (11.5-15.5) % Carbon Dioxide 34 H (22-30) mmol/L BUN 34 H (7-17) mg/dL Creatinine 1.37 H (0.52-1.04) mg/dL Calcium 8.2 L (8.4-10.2) mg/dL AST 13 L (14-36) U/L Total Protein 5.4 L (6.3-8.2) g/dL Albumin 2.5 L (3.5-5.0) g/dL Assessment and Plan (1) Leukocytosis Current Visit: Yes Status: Acute Code(s): D72.829 - ELEVATED WHITE BLOOD CELL COUNT, UNSPECIFIED SNOMED Code(s): 240735971 (2) Abnormal chest x-ray Current Visit: Yes Status: Acute Code(s): R93.89 - ABNORMAL FINDINGS ON DX IMAGING OF OTH BODY STRUCTURES SNOMED Code(s): 909018238 (3) Altered mental status Current Visit: Yes Status: Acute Code(s): R41.82 - ALTERED MENTAL STATUS, UNSPECIFIED SNOMED Code(s): 259835272 Plan: 1patient presented to hospital with weakness lethargic now patient did have evidence of hypothermia did have elevated white count patient denies having any headache no neck rigidity 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 less likely patient did have a cough some choking on food question of possible aspiration pneumonitis 2-blood cultures have been obtained which are currently pending chest x-ray with some effusion and infiltrate question of pneumonia 3-patient white count has normalized and the patient did have normalization of the temperature, on empiric Zosyn has developed antibiotic associated diarrhea, did have some improvement with Questran To Continue 4her mental status still not explain on the basis of what we see clinically [employer]WORKING MACHINE OPERATOR infection/encephalitis less likely but not entirely excluded currently waiting for LP scheduled for Wednesday, Daughter at the bedside plan of care once again discussed with her Dictation was produced using [employer] software. please excuse any grammatical, word or spelling errors. Time with Patient: Less than 30
--- NOTE | 2024-09-11 13:20 | P.PN ---
Subjective Progress Note Date: 09/11/24 Principal diagnosis: Altered mental status with pleural effusion versus pneumonia. Ms. Bates is an 84-year-old female with history of atrial fibrillation for which she takes Eliquis at home. She also has CHF, chronic renal insufficiency coronary history of TIAs, coronary artery disease, I disorder, hyperlipidemia, hypertension, osteoarthritis, heart hide hypothyroid, vertigo, macular degeneration, anemia, COPD, and osteoporosis. She was admitted to [facility] on September 02 with altered mental status as well as episodes of head shaking for approximately 2 minutes. She was seen by neurology on September 03 and was oriented x 2 with some evidence of tongue biting. It she also had decreased left lower extremity strength. An EEG was ordered and obtained Dec which revealed slowing at 4 to 5 Hz without epileptiform discharges. She also received an MRI of the brain which revealed no evidence of acute infarct but evidence of chronic infarcts in the right occipital lobe as well as left cerebellum. She was noted to be sleepy on September 05 and this is considered possibly due to pneumonia as her chest x-ray did show some infiltrates. This her mental status improved on the and she was noted by chest ultrasound of September 08 to have a large pleural effusion versus pneumonia. She has been more confused since then and was planned for a lumbar puncture today. However, on follow-up September 11, the patient is more awake and alert and oriented x 3. She is able to follow both simple and complex commands. She is irritable, but neurologic exam was grossly nonfocal. She is able to raise both arms with strength of at least 3 out of 5 has no notable arm rolling weakness and is only able to lift her legs up strength of 2-3 out of 5. Assessment: Ms. Bates is an 84-year-old female with history of meth metabolic encephalopathy recently likely secondary to multifactorial etiology. Her MRI does not show any evidence of acute stroke and her EEG does not reveal any evidence of epileptiform discharges. Her mental status appears improved at this time. Plan: 1. I will discontinue the lumbar puncture for today in light of patient's improved mental status. 2. I will not choose to place her on antiepileptic medication at this time as she has had no notable seizure. However she does have a history of cerebral infarcts which may possibly be epileptogenic. 3. Patient is not currently on her anticoagulation. She was noted to be on Eliquis in the past and has a history of atrial fibrillation. This should be considered to be resumed as soon as possible. 4. Neurology will continue to follow the patient on an intermittent basis from this point forward and make further recommendations as needed. Objective - Vital Signs Vital signs: Vital Signs Temp 97.4 F L 09/11/24 12:00 Pulse 83 09/11/24 12:00 Resp 16 09/11/24 12:00 BP 116/74 09/11/24 12:00 Pulse Ox 98 09/11/24 12:00 FiO2 Intake & Output 09/10/24 09/11/24 09/11/24 18:59 06:59 18:59 Intake Total 700 Output Total 200 2 1 Balance 500 -2 -1 Weight 55.5 kg Intake: Intake, IV Titration 100 Amount Piperacillin-Tazobactam 3 100 .375 gm In Sodium Chloride 0.9% 100 ml @ 25 mls/hr IVPB Q12H [facility] Rx# :[id number] Oral 600 Output: Urine 200 Stool 2 1 Other: Voiding Method External Catheter External Catheter External Catheter # Bowel Movements 1 - Labs CBC & Chem 7: 09/10/24 06:47 09/10/24 06:47 Labs: Microbiology - Last 24 Hours (Table) 09/05/24 12:46 Blood Culture - Final Blood 09/05/24 12:30 Blood Culture - Final Blood
--- NOTE | 2024-09-11 14:31 | P.PN ---
Subjective Progress Note Date: 09/11/24 On 09/11/2024, the patient is being seen for a follow-up.On this is a 84-year-old female patient with multiple comorbidities was hospitalized for altered mental status. The patient is known to have previous history of CVA/TIA along with chronic kidney disease, anemia of chronic disease, and congestion heart failure. The patient had an acute encephalopathy, along with hypothermia and CAT scan of the brain showed remote lacunar infarct involving the right caudate head and neurologist on the case. The patient also had an acute hypoxic respiratory failure with bilateral pleural effusion and her echocardiogram showed systolic heart failure with an ejection fraction of 40 to 45%. She did have paroxysmal atrial fibrillation with controlled rate and the patient is on anticoagulation with Eliquis. Noted her echocardiogram also showed valvular heart disease with severe mitral regurgitation and secondary pulmonary pretension. Her other comorbidities include hypothyroidism, hypertension and v ascular dementia. Her white cell count is at 8.7 with a hemoglobin 7.4 and a platelet count of 156. BUN 34 with a creatinine of 1.37 and those labs are from yesterday. She remains on Aricept regarding her dementia. She remains on Lasix 40 mg p.o. twice a day and metoprolol XL 50 mg p.o. daily. She remains on IV Zosyn as an empiric antibiotic coverage. Blood cultures have been negative. The most recent chest x-ray from 09/05/2024 showed bilateral pleural effusions and ultrasound of the chest was done on 09/06/2024 revealed a large left-sided pleural effusion measuring around 9.4 cm in size. Objective - Vital Signs Vital signs: Vital Signs Temp 97.5 F L 09/11/24 08:00 Pulse 110 H 09/11/24 08:00 Resp 16 09/11/24 08:00 BP 114/67 09/11/24 08:00 Pulse Ox 99 09/11/24 08:00 FiO2 Intake & Output 09/10/24 09/11/24 09/11/24 18:59 06:59 18:59 Intake Total 700 Output Total 200 2 Balance 500 -2 Weight 55.5 kg Intake: Intake, IV Titration 100 Amount Piperacillin-Tazobactam 3 100 .375 gm In Sodium Chloride 0.9% 100 ml @ 25 mls/hr IVPB Q12H [facility] Rx# :[id number] Oral 600 Output: Urine 200 Stool 2 Other: Voiding Method External Catheter External Catheter # Bowel Movements 1 - Exam No acute distress, oriented 3. The patient is currently on 2 L of oxygen, with saturations of 100%. HEENT examination is grossly unremarkable. Mucous membranes are moist. No oral lesions. Neck supple. Full range of motion. No adenopathy thyromegaly or neck vein distention. Cardiovascular examination reveals regular rhythm rate. S1-S2 normal. No S3 or S4. No discernible murmur noted. Lungs reveal basilar crackles. No wheezes or rhonchi. Breath sounds are equal. Diminished breath sound lung base especially in the left lung base Abdomen soft bowel sounds are heard. No masses or tenderness. Extremities are intact. No cyanosis clubbing or edema. Skin is without rash or lesion. Neurologic examination is brief but nonfocal. - Labs CBC & Chem 7: 09/10/24 06:47 09/10/24 06:47 Labs: Microbiology - Last 24 Hours (Table) 09/05/24 12:46 Blood Culture - Final Blood 09/05/24 12:30 Blood Culture - Final Blood Assessment and Plan Plan: Altered mental status, accompanied by hypothermia, acute moderate encephalopathy , possibly metabolic , etiology unclear. 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 Neurologically, stable at this point in time. Acute hypoxic respiratory failure secondary to bilateral pleural effusions, currently on 2 L of oxygen by nasal cannula. The patient has a moderate-sized left-sided pleural effusion confirmed by an ultrasound. Acute on chronic CHF, systolic dysfunction EF 40 to 45% in addition to valvular heart disease with severe mitral regurgitation, moderate TR and moderate degree of pulmonary hypertension Persistent atrial fibrillation with controlled ventricular rate, anticoagulated with Eliquis Chronic kidney disease stage III-IV Elevated troponin, secondary to CKD, cardiology following Hypertension Hypothyroidism Possible vascular dementia plan Clinically stable on 2 L of oxygen by nasal cannula Repeat chest x-ray to follow-up on the pleural effusions Continue Lasix Continue metoprolol No anticoagulants for now May discontinue the IV Zosyn May consider thoracentesis if follow-up chest x-ray shows a sizable pleural effusion Will continue to follow
--- NOTE | 2024-09-11 15:24 | XR ---
EXAMINATION TYPE: XR chest 1V DATE OF EXAM: 09/11/2024 3:17 PM COMPARISON: Chest radiographs from 09/05/2024 CLINICAL INDICATION: Female, 84 years old with history of Pleural effusions; [facility] TECHNIQUE: XR chest 1V Frontal view of the chest. FINDINGS: Lungs/Pleura: No evidence of focal consolidation or pneumothorax. Blunting of the costophrenic angles is present. Pulmonary vascularity: Pulmonary vascular congestion. Heart/mediastinum: Cardiomediastinal silhouette is enlarged. Musculoskeletal: No acute osseous pathology. IMPRESSION: Cardiomegaly, pulmonary vascular congestion and bilateral pleural effusions. Correlate with BNP for c ongestive heart failure. [facility], , 09/11/2024 3:21 PM
--- NOTE | 2024-09-12 10:21 | CDI ---
Documentation Clarification Form Date: 09/12/2024 09:47:21 AM From: Riana Plascencia RN, CCDS Phone: [phone] Admit Date: 09/02/2024 05:17:00 PM Patient Name: Zita Bates Visit Number: [id number] Discharge Date: ATTENTION: The Clinical Documentation Specialists (CDI) and [facility] Coding Staff appreciate your assistance in clarifying documentation. Please respond to the clarification below the line at the bottom and electronically sign. The CDI & [facility] Coding staff will review the response and follow-up if needed. Please note: Queries are made part of the Legal Health Record. If you have any questions, please contact the author of this message via ITS. Doctor/Provider: Gerardo Kwong Chronic kidney disease stage 111-IV is documented in the H/P and subsequent progress notes. We are not allowed to make a medical diagnosis when a range is provided. Additional clarification regarding the stage of CKD is requested. History/Risk Factors: Atrial Fibrillation, Heart Failure, CVA, TIA, Hyperlipidemia, Hypertension CKD, Thyroid disorder Clinical Indicators: 84-year-old female with history of renal disease, chronic kidney disease. 09/02 BUN 36, CR 1.35, GFR 36 09/03 BUN 39, CR 1.36, GFR 35 09/05 BUN 44, CR 1.42 GFR 34 09/06 BUN 46, CR 1.52, GFR 31 09/10 BUN 34, CR 1.37, GFR 35 Treatment: Telemetry Monitoring Monitor Labs, renal function daily, per orders Please clarify the stage of the CKD that is most appropriate for this patient if known: [ ] CKD Stage 3 [ ] CKD Stage 3a [X] CKD Stage 3b [ ] CKD Stage 4 [ ] Other, please specify [ ] Unable to determine Reference: National Kid[employer] Stage 1 eGFR = 90 and kidney damage for =3 months Stage 2 eGFR 60-89 and kidney damage for =3 months Stage 3a eGFR 45-59 and kidney damage for =3 months Stage 3b eGFR 30-44 and kidney damage for =3 months Stage 4 eGFR 15-29 r and kidney damage for =3 months Stage 5 eGFR <15 and kidney damage for =3 months (Template Last revised: September 2023) MTDD
[2024-09-12 10:48] LABS: Anisocytosis Moderate; HCT 27.5 % (34.0-46.0); HGB 7.2 gm/dL (11.4-16.0); Hypochromasia Marked; MCH 21.5 pg (25.0-35.0); MCHC 26.1 g/dL (31.0-37.0); MCV 82.6 fL (80.0-100.0); Mean Platelet Volume 9.9; Microcytosis Slight; Platelet Count 201 k/uL (150-450); Poikilocytosis Slight; RBC 3.33 m/uL (3.80-5.40); RDW 21.8 % (11.5-15.5)
[2024-09-12 11:12] VITALS: BMI 23.8
--- NOTE | 2024-09-12 11:18 | P.DS ---
Providers Date of admission: 09/02/24 17:17 Expected date of discharge: 09/13/24 Attending physician: Gerardo Kwong Consults: 09/02/24 17:15 Consult Physician Routine Consulting Provider: Manav Grimes Consult Reason/Comments: AMS Do you want consulting provider notified?: Yes 09/03/24 09:23 Consult Physician Routine Consulting Provider: Jose Saunders Consult Reason/Comments: pulmonary edema Do you want consulting provider notified?: Yes 09/05/24 12:11 Consult Physician Routine Consulting Provider: Jameel Dasilva Consult Reason/Comments: encephalopathy, etiology unclear Do you want consulting provider notified?: Yes 09/08/24 14:45 Consult to Anesthesia Stat Consulting Provider: Anesthesia,Services Consult Reason/Comments: LP/CSF Primary care physician: Gerardo Kwong [facility] Course: Final diagnosis Altered mental status, accompanied by hypothermia, acute moderate encephalopathy, possibly metabolic , etiology unclear. 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 Neurology following.Per neurology her MRI does not show evidence of acute stroke, and her EEG does not reveal any evidence of elliptic form discharges. LP canceled as per neurology due to patient's improved mental status. Acute hypoxic respiratory failure secondary to bilateral pleural effusions. Left-sided thoracentesis on 09/12/2024, right-sided thoracentesis 09/13/24.Pleural fluid cultures/cytology in progress. Acute on chronic CHF, systolic dysfunction EF 40 to 45% Persistent atrial fibrillation with controlled ventricular rate, anticoagulated with Eliquis Normal LV function Moderate pulmonary hypertension Severe mitral regurgitation Moderate tricuspid regurgitation Chronic kidney disease stage III Elevated troponin, secondary to CKD, cardiology following Hypertension Hypothyroidism Possible vascular dementia Hospital course: This is a 84-year-old female admitted with altered mental status changes, acute hypoxic respiratory failure and multiple other medical issues. Evaluated by neurology, neuro workup in progress. Keppra initiated yesterday, no seizure activity reported. reported EEG completed this morning, results pending, MRI and echo pending. Patient does not recognize PCP. Speech is slow ,family reports patient mixing up words and short of breath. Maintaining O2 sats of high 90s to 100% on 2 L nasal cannula. Ultrasound performed yesterday reported large bilateral pleural effusions both marked for possible thoracentesis,left greater than right; anticoagulated on Eliquis. Diuresing on Lasix IV push. blood pressure soft this morning. Bicarb 29, BUN 39, creatinine 1.36. On admission BNP 14,100, currently 17,500. 09/05/2024 require warming blanket to maintain axillary temperature 97.5. EEG completed reporting moderate to severe encephalopathy, no seizure activity. Keppra discontinued as per neurology, at family's request. Brain MRI reported no evidence of intracranial mass or acute/subacute infarct. Remote right occipital lobe and left cerebellum with encephalomalacia and miosis. Nonspecific white matter changes likely secondary to small vessel ischemic disease.Echo reported 6 normal LV function with severe mitral regurgitation, moderate pulmonary hypertension, moderate tricuspid regurgitation, No aortic stenosis, maintain O2 sats in the 90s on 1 L nasal cannula. Afebrile, WBC 12.7, hemoglobin 7.9, platelets 153. Electrolytes within normal limits. Renal function mildly worsened, BUN 44 creatinine 1.42. Diuretics converted from IV push to oral as per cardiology 09/06/2024 echo reported normal LV size and systolic function with severe mitral regurgitation eccentric and also central with multiple jets, moderate pulmonary hypertension, moderate tricuspid regurgitation, no aortic stenosis, no significant pericardial effusion. evaluated by infectious disease with recommendations noted. Continues on Zosyn. Blood cultures obtained, results pending. CRP elevated, 2.1, normal procalcitonin. Continues with warming blanket, axillary 97.5. WBC normal. chest x-ray completed yesterday, reported moderate left pleural effusion, right lower lobe infiltrates, stable. Eliquis has been temporarily discontinued, for potential tap. Transition to oral Lasix yesterday, creatinine mildly increased. Eleven 7.5, platelets 140. Sensorium slowly improving,recognizes PCP, Dr. Kwong today. 09/07/2024 reports rough night, did not sleep well .continues on Zosyn , preliminary blood cultures reporting no growth after 24 hours,maintaining temperatures within normal limits off the warming blanket, currently 98.4. Procalcitonin 0.14. sensorium continues to improve, alert, conversing more. Denies chest pain, palpitations or shortness of breath. 09/08/2024 patient has been off of warming blanket since yesterday afternoon, maintaining temperatures of 97.3-97.5. Preliminary blood cultures reporting no growth after 48 hours. Maintaining O2 sats in the mid to high 90s on 1 L nasal cannula O2 .yesterday patient was much more alert and talking- today patient returned to increased lethargy, sleeping, speech slower, whispering. Follows simple commands with prompting. 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 Nonspecific white matter changes likely secondary to chronic small vessel ischemic disease. Hemoglobin 7.4, platelets 130, potassium 3, magnesium 2.2, bicarb 28 BUN 38, creatinine 1.51. Maintained on empiric Zosyn. daughter reports 5 or 6 episodes of diarrhea within the last 12 hours. Potential thoracentesis as per pulmonary, Eliquis is on hold and needs to be resumed as soon as possible. 09/13/2024 yesterday pulmonary performed a left-sided thoracentesis with 1 L of turbid colored fluid drained, tolerated procedure well. Pleural fluid cultures/cytology in progress. right-sided thoracentesis today with pulmonary, 550ml drained. Significant clinical improvement. Patient will be discharged to [facility] subacute rehab today in a stable condition with guarded prognosis pending final DC recommendations and clearance per pulmonary, infectious disease and neurology. The impression and plan of care has been dictated as directed. : I performed a history and examination of this patient, discussed the same with the dictator. I agree with the dictator's note ,documented as a scribe. Any additional findings or plans will be noted. Patient Condition at Discharge: Stable Plan - Discharge Summary New Discharge Prescriptions: New Lactobacillus Acidophilus [Acidophilus Probiotic] 1 each PO DAILY #30 capsule Cholestyramine (with Sugar) [Questran Packet] 4 gm PO BID@1000,1800 packet QUEtiapine [SEROquel] 25 mg PO HS PRN tab PRN Reason: Agitation Levothyroxine Sodium [Synthroid] 75 mcg PO DAILY@0630 tab Pantoprazole [Protonix] 40 mg PO DAILY #30 tab Acetaminophen Tab [Tylenol] 650 mg PO Q6HR PRN tab PRN Reason: Mild Pain Or Fever > 100.5 Continue Pravastatin Sodium [Pravachol] 10 mg PO HS Potassium Chloride ER [K-Dur 20] 20 meq PO DAILY Vit C/E/Zn/Coppr/Lutein/Zeaxan [Preservision Areds 2 Softgel] 1 cap PO BID- W/MEALS Iron (Unknown Dose) 2 tab PO DAILY Metoprolol Succinate [Toprol XL] 50 mg PO DAILY #90 tab Apixaban [Eliquis] 5 mg PO BID-W/MEALS Furosemide [Lasix] 40 mg PO BID-W/MEALS Discontinued Donepezil [Aricept] 10 mg PO HS Levothyroxine Sodium [Tirosint] 100 mcg PO DAILY Discharge Medication List Pravastatin Sodium [Pravachol] 10 mg PO HS 06/08/20 [History] Metoprolol Succinate [Toprol XL] 50 mg PO DAILY #90 tab 01/26/23 [Rx] Apixaban [Eliquis] 5 mg PO BID-W/MEALS 07/09/24 [History] Furosemide [Lasix] 40 mg PO BID-W/MEALS 09/02/24 [History] Iron (Unknown Dose) 2 tab PO DAILY 09/02/24 [History] Potassium Chloride ER [K-Dur 20] 20 meq PO DAILY 09/02/24 [History] Vit C/E/Zn/Coppr/Lutein/Zeaxan [Preservision Areds 2 Softgel] 1 cap PO BID- W/MEALS 09/02/24 [History] Acetaminophen Tab [Tylenol] 650 mg PO Q6HR PRN tab 09/12/24 [Rx] Cholestyramine (with Sugar) [Questran Packet] 4 gm PO BID@1000,1800 packet 09/12/24 [Rx] Lactobacillus Acidophilus [Acidophilus Probiotic] 1 each PO DAILY #30 capsule 09/12/24 [Rx] Levothyroxine Sodium [Synthroid] 75 mcg PO DAILY@0630 tab 09/12/24 [Rx] Pantoprazole [Protonix] 40 mg PO DAILY #30 tab 09/12/24 [Rx] QUEtiapine [SEROquel] 25 mg PO HS PRN tab 09/12/24 [Rx] Follow up Appointment(s)/Referral(s): [facility], [NON-STAFF] - Gerardo Kwong DO [Primary Care Provider] - 1-2 days Activity/Diet/Wound Care/Special Instructions: Diet: Health Health Dysphagia Level II Ground Activity as tolerated [place]: [facility] [place] CBC, BMP in 3 days Discharge Disposition: TRANSFER TO SNF/ECF
[2024-09-12 12:00] LABS: African American GFR (CKD) 50 (>60 ml/min/1.73 sqM); Anion Gap 12 mmol/L; Blood Urea Nitrogen 31 mg/dL (7-17); Calcium 8.6 mg/dL (8.4-10.2); Carbon Dioxide 22 mmol/L (22-30); Chloride 108 mmol/L (98-107); Glucose 161 mg/dL (74-99); Non-African American GFR(CKD) 43 (>60 ml/min/1.73 sqM); Potassium 3.6 mmol/L (3.5-5.1); Sodium 142 mmol/L (137-145)
--- NOTE | 2024-09-12 13:05 | P.PN ---
Subjective Progress Note Date: 09/11/24 Principal diagnosis: Reason for follow-up is leukocytosis hypothermia/infection Patient is a 84-year-old female with a past medical history significant for hypertension hyperlipidemia osteoarthritis heart failure atrial fibrillation patient has been brought into the hospital for evaluation of confusion and decreased appetite patient noticed to be hypothermic did have elevated white count prompting this consultation. On today's evaluation that is 09/11/2024, patient has been afebrile, patient is breathing comfortably and is currently on 2 L nasal cannula oxygen, patient seem to be slightly more awake today no vomiting or any worsening diarrhea reported by the daughter at the bedside. Patient did not have lab draw today Objective - Vital Signs Vital signs: Vital Signs Temp 97.5 F L 09/11/24 08:00 Pulse 110 H 09/11/24 08:00 Resp 16 09/11/24 08:00 BP 114/67 09/11/24 08:00 Pulse Ox 99 09/11/24 08:00 FiO2 Intake & Output 09/10/24 09/11/24 09/11/24 18:59 06:59 18:59 Intake Total 700 Output Total 200 2 Balance 500 -2 Weight 55.5 kg Intake: Intake, IV Titration 100 Amount Piperacillin-Tazobactam 3 100 .375 gm In Sodium Chloride 0.9% 100 ml @ 25 mls/hr IVPB Q12H [facility] Rx# :[id number] Oral 600 Output: Urine 200 Stool 2 Other: Voiding Method External Catheter External Catheter # Bowel Movements 1 - Exam GENERAL DESCRIPTION: An elderly female lying in bed in no distress RESPIRATORY SYSTEM: Unlabored breathing , decreased breath sounds at bases HEART: S1 S2 regular rate and rhythm , ABDOMEN: Soft , no tenderness EXTREMITIES: No edema feet - Labs CBC & Chem 7: 09/12/24 10:16 09/12/24 10:16 Labs: Microbiology - Last 24 Hours (Table) 09/05/24 12:46 Blood Culture - Final Blood 09/05/24 12:30 Blood Culture - Final Blood Assessment and Plan (1) Leukocytosis Current Visit: Yes Status: Acute Code(s): D72.829 - ELEVATED WHITE BLOOD CELL COUNT, UNSPECIFIED SNOMED Code(s): 127660548 (2) Abnormal chest x-ray Current Visit: Yes Status: Acute Code(s): R93.89 - ABNORMAL FINDINGS ON DX IMAGING OF OTH BODY STRUCTURES SNOMED Code(s): 075078639 (3) Altered mental status Current Visit: Yes Status: Acute Code(s): R41.82 - ALTERED MENTAL STATUS, UNSPECIFIED SNOMED Code(s): 967767611 Plan: 1patient presented to hospital with weakness lethargic now patient did have evidence of hypothermia did have elevated white count patient denies having any headache no neck rigidity underlying TIRE INSTALLER infection less likely patient did have a cough some choking on food question of possible aspiration pneumonitis 2-blood cultures have been obtained which are currently pending chest x-ray with some effusion and infiltrate question of pneumonia 3-patient white count has normalized and the patient did have normalization of the temperature, on empiric Zosyn has developed antibiotic associated diarrhea, did have some improvement with Questran To Continue 4her mental status still not explain on the basis of what we see clinically TIRE INSTALLER infection/encephalitis less likely but not entirely excluded patient is currently waiting for the LP scheduled for this afternoon Daughter at the bedside plan of care once again discussed with her Dictation was produced using Sidecar dictation software. please excuse any grammatical, word or spelling errors. Time with Patient: Less than 30
--- NOTE | 2024-09-12 13:06 | P.PN ---
Subjective Progress Note Date: 09/12/24 Principal diagnosis: Reason for follow-up is leukocytosis hypothermia/infection Patient is a 84-year-old female with a past medical history significant for hypertension hyperlipidemia osteoarthritis heart failure atrial fibrillation patient has been brought into the hospital for evaluation of confusion and decreased appetite patient noticed to be hypothermic did have elevated white count prompting this consultation. On today's evaluation that is 09/12/2024, Patient is afebrile this morning patient is up in the chair breathing comfortably on room air elevated good historian no vomiting diarrhea and the changes reported by the daughter at the bedside. Patient did have white count of 10.0, creatinine is 1.16 Objective - Vital Signs Vital signs: Vital Signs Temp 97.5 F L 09/12/24 08:00 Pulse 80 09/12/24 12:00 Resp 18 09/12/24 12:00 BP 112/74 09/12/24 12:00 Pulse Ox 93 L 09/12/24 12:00 FiO2 Intake & Output 09/11/24 09/12/24 09/12/24 18:59 06:59 18:59 Intake Total 358 Output Total 302 150 Balance -302 208 Weight 55.5 kg Intake: Oral 358 Output: Urine 300 150 Stool 2 Other: Voiding Method External Catheter External Catheter External Catheter # Voids 1 - Exam GENERAL DESCRIPTION: An elderly female lying in bed in no distress RESPIRATORY SYSTEM: Unlabored breathing , decreased breath sounds at bases HEART: S1 S2 regular rate and rhythm , ABDOMEN: Soft , no tenderness EXTREMITIES: No edema feet - Labs CBC & Chem 7: 09/12/24 10:16 09/12/24 10:16 Labs: Abnormal Lab Results - Last 24 Hours (Table) 09/12/24 09/12/24 Range/Units 10:16 10:16 RBC 3.33 L (3.80-5.40) m/uL Hgb 7.2 L (11.4-16.0) gm/dL Hct 27.5 L (34.0-46.0) % MCH 21.5 L (25.0-35.0) pg MCHC 26.1 L (31.0-37.0) g/dL RDW 21.8 H (11.5-15.5) % Chloride 108 H (98-107) mmol/L BUN 31 H (7-17) mg/dL Creatinine 1.16 H (0.52-1.04) mg/dL Glucose 161 H (74-99) mg/dL Assessment and Plan (1) Leukocytosis Current Visit: Yes Status: Acute Code(s): D72.829 - ELEVATED WHITE BLOOD CELL COUNT, UNSPECIFIED SNOMED Code(s): 447546171 (2) Abnormal chest x-ray Current Visit: Yes Status: Acute Code(s): R93.89 - ABNORMAL FINDINGS ON DX IMAGING OF OTH BODY STRUCTURES SNOMED Code(s): 299765055 (3) Altered mental status Current Visit: Yes Status: Acute Code(s): R41.82 - ALTERED MENTAL STATUS, UNSPECIFIED SNOMED Code(s): 509976177 Plan: 1patient presented to hospital with weakness lethargic now patient did have evidence of hypothermia did have elevated white count patient denies having any headache no neck rigidity underlying IT PROGRAMMER infection less likely patient did have a cough some choking on food question of possible aspiration pneumonitis 2-blood cultures have been obtained which are currently pending chest x-ray with some effusion and infiltrate question of pneumonia 3-patient white count has normalized and the patient did have normalization of the temperature, however culture remains to be negative to have normal procalcitonin as the patient has received about a week of antibiotic and has lost her IV he will consider discontinuation of antibiotics and monitor the patient closely off antibiotic therapy 4her mental status still not explain on the basis of what we see clinically IT PROGRAMMER infection/encephalitis less likely but not entirely excluded LP was canceled by neurology yesterday and per discussion with the neurologist he told me he does not think it was necessary that is why he canceled it Daughter at the bedside question concern answered Dictation was produced using [employer] dictation software. please excuse any grammatical, word or spelling errors. Time with Patient: Less than 30
--- NOTE | 2024-09-12 13:58 | XR ---
EXAMINATION TYPE: XR chest 1V portable DATE OF EXAM: 09/12/2024 12:56 PM COMPARISON: Chest radiographs from09/11/2024 CLINICAL INDICATION: Female, 84 years old with history of post left thoracentesis; TECHNIQUE: XR chest 1V portable Frontal view of the chest. FINDINGS: Lungs/Pleura: There is no evidence of pleural effusion, focal consolidation, or pneumothorax. Right perihilar nodule measuring 12 mm. Pulmonary vascularity: Pulmonary vascular congestion. Heart/mediastinum: Cardiomediastinal silhouette is enlarged. Musculoskeletal: No acute osseous pathology. IMPRESSION: 1. Reduced left pleural effusion without evidence of pneumothorax. 2. Cardiomegaly and mild pulmonary vascular congestion. Correlate with BNP for congestive heart fail ure. 3. Right perihilar nodule suggested measuring 12 mm. [facility], , 09/12/2024 1:56 PM
--- NOTE | 2024-09-12 15:06 | P.PN ---
Subjective Progress Note Date: 09/11/24 This is a 84-year-old female admitted with altered mental status changes, acute hypoxic respiratory failure and multiple other medical issues. Evaluated by neurology, neuro workup in progress. Keppra initiated yesterday, no seizure activity reported. reported EEG completed this morning, results pending, MRI and echo pending. Patient does not recognize PCP. Speech is slow ,family reports patient mixing up words and short of breath. Maintaining O2 sats of high 90s to 100% on 2 L nasal cannula. Ultrasound performed yesterday reported large bilateral pleural effusions both marked for possible thoracentesis,left greater than right; anticoagulated on Eliquis. Diuresing on Lasix IV push. blood pressure soft this morning. Bicarb 29, BUN 39, creatinine 1.36. On admission BNP 14,100, currently 17,500. 09/05/2024 require warming blanket to maintain axillary temperature 97.5. EEG completed reporting moderate to severe encephalopathy, no seizure activity. Keppra discontinued as per neurology, at family's request. Brain MRI reported no evidence of intracranial mass or acute/subacute infarct. Remote right occipital lobe and left cerebellum with encephalomalacia and miosis. Nonspecific white matter changes likely secondary to small vessel ischemic disease.Echo reported 6 normal LV function with severe mitral regurgitation, moderate pulmonary hypertension, moderate tricuspid regurgitation, No aortic stenosis, maintain O2 sats in the 90s on 1 L nasal cannula. Afebrile, WBC 12.7, hemoglobin 7.9, platelets 153. Electrolytes within normal limits. Renal function mildly worsened, BUN 44 creatinine 1.42. Diuretics converted from IV push to oral as per cardiology 09/06/2024 echo reported normal LV size and systolic function with severe mitral regurgitation eccentric and also central with multiple jets, moderate pulmonary hypertension, moderate tricuspid regurgitation, no aortic stenosis, no significant pericardial effusion. evaluated by infectious disease with recommendations noted. Continues on Zosyn. Blood cultures obtained, results pending. CRP elevated, 2.1, normal procalcitonin. Continues with warming blanket, axillary 97.5. WBC normal. chest x-ray completed yesterday, reported moderate left pleural effusion, right lower lobe infiltrates, stable. Eliquis has been temporarily discontinued, for potential tap. Transition to oral Lasix yesterday, creatinine mildly increased. Eleven 7.5, platelets 140. Sensorium slowly improving,recognizes PCP, Dr. Kwong today. 09/07/2024 reports rough night, did not sleep well .continues on Zosyn , preliminary blood cultures reporting no growth after 24 hours,maintaining tem peratures within normal limits off the warming blanket, currently 98.4. Procalcitonin 0.14. sensorium continues to improve, alert, conversing more. Denies chest pain, palpitations or shortness of breath. 09/08/2024 patient has been off of warming blanket since yesterday afternoon, maintaining temperatures of 97.3-97.5. Preliminary blood cultures reporting no growth after 48 hours. Maintaining O2 sats in the mid to high 90s on 1 L nasal cannula O2 .yesterday patient was much more alert and talking- today patient returned to increased lethargy, sleeping, speech slower, whispering. Follows simple commands with prompting. 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 Nonspecific white matter changes likely secondary to chronic small vessel ischemic disease. Hemoglobin 7.4, platelets 130, potassium 3, magnesium 2.2, bicarb 28 BUN 38, creatinine 1.51. Maintained on empiric Zosyn. daughter reports 5 or 6 episodes of diarrhea within the last 12 hours. 09/11/2024 continues on Questran, diarrhea improving ,2 episodes documented today. Anticoagulation remains on hold, LP pending. Potential thoracentesis per pulmonary, pending chest x-ray. Blood cultures negative, continues on Zosyn. Afebrile. More awake today. Objective - Vital Signs Vital signs: Vital Signs Temp 97.4 F L 09/11/24 16:00 Pulse 76 09/11/24 16:00 Resp 18 09/11/24 16:00 BP 114/66 09/11/24 16:00 Pulse Ox 99 09/11/24 16:00 FiO2 Intake & Output 09/11/24 09/11/24 09/12/24 06:59 18:59 06:59 Output Total 2 302 Balance -2 -302 Weight 55.5 kg Output: Urine 300 Stool 2 2 Other: Voiding Method External Catheter External Catheter - Exam GENERAL: alert and oriented x2, alert to person and place NAD, HEENT: Normocephalic, atraumatic, pupils equal, positive conjunctival pallor. MMM. CARDIOVASCULAR: S1 and S2 present. Systolic murmurs, rubs, or gallops. PULMONARY: Unlabored at rest, equal air entry, fine bibasilar crackles. ABDOMEN: Soft, nontender, nondistended, normoactive bowel sounds. Positive bowel sounds EXTREMITIES: No cyanosis, clubbing, or pedal edema. NEUROLOGICAL: Gross neurological examination did not reveal any focal deficits. SKIN: Warm and dry, no rashes. - Labs CBC & Chem 7: 09/12/24 10:16 09/12/24 10:16 Labs: Microbiology - Last 24 Hours (Table) 09/05/24 12:46 Blood Culture - Final Blood 09/05/24 12:30 Blood Culture - Final Blood Assessment and Plan Assessment: Altered mental status, accompanied by hypothermia, acute moderate encephalopathy, possibly metabolic , etiology unclear. 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 Neurology following. LP pending. Acute hypoxic respiratory failure secondary to bilateral pleural effusions Acute on chronic CHF, systolic dysfunction EF 40 to 45% Persistent atrial fibrillation with controlled ventricular rate, anticoagulated with Eliquis Normal LV function Moderate pulmonary hypertension Severe mitral regurgitation Moderate tricuspid regurgitation Chronic kidney disease stage III-IV Elevated troponin, secondary to CKD, cardiology following Hypertension Hypothyroidism Possible vascular dementia Plan: Continue on current medication regimen ,monitoring and symptomatic treatment. LP pending. Potential thoracentesis per pulmonary, pending chest x- ray. antibiotics as per infectious disease. Discharge planning in progress for [facility], [facility]. The impression and plan of care has been dictated as directed. : I performed a history and examination of this patient, discussed the same with the dictator. I agree with the dictator's note ,documented as a scribe. Any additional findings or plans will be noted.
--- NOTE | 2024-09-12 15:36 | P.PN ---
Subjective Progress Note Date: 09/12/24 This is a 84-year-old female admitted with altered mental status changes, acute hypoxic respiratory failure and multiple other medical issues. Evaluated by neurology, neuro workup in progress. Keppra initiated yesterday, no seizure activity reported. reported EEG completed this morning, results pending, MRI and echo pending. Patient does not recognize PCP. Speech is slow ,family reports patient mixing up words and short of breath. Maintaining O2 sats of high 90s to 100% on 2 L nasal cannula. Ultrasound performed yesterday reported large bilateral pleural effusions both marked for possible thoracentesis,left greater than right; anticoagulated on Eliquis. Diuresing on Lasix IV push. blood pressure soft this morning. Bicarb 29, BUN 39, creatinine 1.36. On admission BNP 14,100, currently 17,500. 09/05/2024 require warming blanket to maintain axillary temperature 97.5. EEG completed reporting moderate to severe encephalopathy, no seizure activity. Keppra discontinued as per neurology, at family's request. Brain MRI reported no evidence of intracranial mass or acute/subacute infarct. Remote right occipital lobe and left cerebellum with encephalomalacia and miosis. Nonspecific white matter changes likely secondary to small vessel ischemic disease.Echo reported 6 normal LV function with severe mitral regurgitation, moderate pulmonary hypertension, moderate tricuspid regurgitation, No aortic stenosis, maintain O2 sats in the 90s on 1 L nasal cannula. Afebrile, WBC 12.7, hemoglobin 7.9, platelets 153. Electrolytes within normal limits. Renal function mildly worsened, BUN 44 creatinine 1.42. Diuretics converted from IV push to oral as per cardiology 09/06/2024 echo reported normal LV size and systolic function with severe mitral regurgitation eccentric and also central with multiple jets, moderate pulmonary hypertension, moderate tricuspid regurgitation, no aortic stenosis, no significant pericardial effusion. evaluated by infectious disease with recommendations noted. Continues on Zosyn. Blood cultures obtained, results pending. CRP elevated, 2.1, normal procalcitonin. Continues with warming blanket, axillary 97.5. WBC normal. chest x-ray completed yesterday, reported moderate left pleural effusion, right lower lobe infiltrates, stable. Eliquis has been temporarily discontinued, for potential tap. Transition to oral Lasix yesterday, creatinine mildly increased. Eleven 7.5, platelets 140. Sensorium slowly improving,recognizes PCP, Dr. Kwong today. 09/07/2024 reports rough night, did not sleep well .continues on Zosyn , preliminary blood cultures reporting no growth after 24 hours,maintaining tem peratures within normal limits off the warming blanket, currently 98.4. Procalcitonin 0.14. sensorium continues to improve, alert, conversing more. Denies chest pain, palpitations or shortness of breath. 09/08/2024 patient has been off of warming blanket since yesterday afternoon, maintaining temperatures of 97.3-97.5. Preliminary blood cultures reporting no growth after 48 hours. Maintaining O2 sats in the mid to high 90s on 1 L nasal cannula O2 .yesterday patient was much more alert and talking- today patient returned to increased lethargy, sleeping, speech slower, whispering. Follows simple commands with prompting. 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 Nonspecific white matter changes likely secondary to chronic small vessel ischemic disease. Hemoglobin 7.4, platelets 130, potassium 3, magnesium 2.2, bicarb 28 BUN 38, creatinine 1.51. Maintained on empiric Zosyn. daughter reports 5 or 6 episodes of diarrhea within the last 12 hours. 09/11/2024 continues on Questran, diarrhea improving ,2 episodes documented today. Anticoagulation remains on hold, LP pending. Potential thoracentesis per pulmonary, pending chest x-ray. Blood cultures negative, continues on Zosyn. Afebrile. More awake today. 09/12/2024 neurology canceled LP as they felt her mentation had improved. Chest x-ray yesterday afternoon reported cardiomegaly, pulmonary vascular congestion and bilateral pleural effusions ,possible thoracentesis today with pulmonary, Anticoagulation remains on hold. Sitting up in chair. Afebrile, vital signs stable. Denies chest pain, palpitations. Reports shortness of breath, maintaining O2 sats in the low 90s on room air. Labs pending. Objective - Vital Signs Vital signs: Vital Signs Temp 97.5 F L 09/12/24 08:00 Pulse 80 09/12/24 12:00 Resp 18 09/12/24 12:00 BP 112/74 09/12/24 12:00 Pulse Ox 93 L 09/12/24 12:00 FiO2 Intake & Output 09/11/24 09/12/24 09/12/24 18:59 06:59 18:59 Intake Total 358 Output Total 302 150 Balance -302 208 Weight 55.5 kg Intake: Oral 358 Output: Urine 300 150 Stool 2 Other: Voiding Method External Catheter External Catheter External Catheter # Voids 1 - Exam GENERAL: alert and oriented x2, sitting up in chair, sleepy ,alert to person and place NAD, HEENT: Normocephalic, atraumatic, pupils equal, positive conjunctival pallor. MM M. CARDIOVASCULAR: S1 and S2 present. Systolic murmur. PULMONARY: Unlabored, equal air entry, fine bibasilar crackles. ABDOMEN: Soft, nontender, nondistended, normoactive bowel sounds. Positive edith l sounds EXTREMITIES: No cyanosis, clubbing, or pedal edema. NEUROLOGICAL: Gross neurological examination did not reveal any focal deficits. SKIN: Warm and dry, no rashes. - Labs CBC & Chem 7: 09/12/24 10:16 09/12/24 10:16 Labs: Abnormal Lab Results - Last 24 Hours (Table) 09/12/24 09/12/24 Range/Units 10:16 10:16 RBC 3.33 L (3.80-5.40) m/uL Hgb 7.2 L (11.4-16.0) gm/dL Hct 27.5 L (34.0-46.0) % MCH 21.5 L (25.0-35.0) pg MCHC 26.1 L (31.0-37.0) g/dL RDW 21.8 H (11.5-15.5) % Chloride 108 H (98-107) mmol/L BUN 31 H (7-17) mg/dL Creatinine 1.16 H (0.52-1.04) mg/dL Glucose 161 H (74-99) mg/dL Assessment and Plan Assessment: Altered mental status, accompanied by hypothermia, acute moderate encephalopathy, possibly metabolic , etiology unclear. 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 Neurology following. LP canceled as per neurology. Acute hypoxic respiratory failure secondary to bilateral pleural effusions, potential thoracentesis pending Acute on chronic CHF, systolic dysfunction EF 40 to 45% Persistent atrial fibrillation with controlled ventricular rate, anticoagulated with Eliquis Normal LV function Moderate pulmonary hypertension Severe mitral regurgitation Moderate tricuspid regurgitation Chronic kidney disease stage III Elevated troponin, secondary to CKD, cardiology following Hypertension Hypothyroidism Possible vascular dementia Plan: Continue on current medication regimen ,monitoring and symptomatic treatment. Labs pending .anticoagulation remains on hold. Potential thoracentesis per pulmonary, pending chest x-ray review. antibiotics as per infectious disease. Discharge planning in progress for [facility]. Family at bedside and updated on plan of care. The impression and plan of care has been dictated as directed. : I performed a history and examination of this patient, discussed the same with the dictator. I agree with the dictator's note ,documented as a scribe. Any additional findings or plans will be noted.
--- NOTE | 2024-09-12 18:06 | P.PN ---
Subjective Progress Note Date: 09/12/24 On 09/11/2024, the patient is being seen for a follow-up.On this is a 84-year-old female patient with multiple comorbidities was hospitalized for altered mental status. The patient is known to have previous history of CVA/TIA along with chronic kidney disease, anemia of chronic disease, and congestion heart failure. The patient had an acute encephalopathy, along with hypothermia and CAT scan of the brain showed remote lacunar infarct involving the right caudate head and neurologist on the case. The patient also had an acute hypoxic respiratory failure with bilateral pleural effusion and her echocardiogram showed systolic heart failure with an ejection fraction of 40 to 45%. She did have paroxysmal atrial fibrillation with controlled rate and the patient is on anticoagulation with Eliquis. Noted her echocardiogram also showed valvular heart disease with severe mitral regurgitation and secondary pulmonary pretension. Her other comorbidities include hypothyroidism, hypertension and v ascular dementia. Her white cell count is at 8.7 with a hemoglobin 7.4 and a platelet count of 156. BUN 34 with a creatinine of 1.37 and those labs are from yesterday. She remains on Aricept regarding her dementia. She remains on Lasix 40 mg p.o. twice a day and metoprolol XL 50 mg p.o. daily. She remains on IV Zosyn as an empiric antibiotic coverage. Blood cultures have been negative. The most recent chest x-ray from 09/05/2024 showed bilateral pleural effusions and ultrasound of the chest was done on 09/06/2024 revealed a large left-sided pleural effusion measuring around 9.4 cm in size. On 09/12/2024, the patient was able to sit up on the chair along with assistance. She continues to have shortness of breath even at rest and the patient is currently on room air oxygen. As noted earlier, the patient also has bilateral pleural effusions. Mental status seems to be adequate at this point and the patient has no focal neurological deficits. Nevertheless, she has generalized global weakness in all 4 extremities. She is currently off anticoagulation. She is known to have CHF with systolic heart failure with an ejection fraction 40 to 45% along with severe MR and moderate TR and moderate degree of pulm hypertension. She remains on Lasix. The patient is receiving Lasix 40 mg p.o. twice a day. WBC count is at 10 with a hemoglobin 7.2 and a platelet count is at 2 1. Serum bicarb is at 22 with a sodium level of 142 and a potassium level of 3.6. BUN 31 with a creatinine of 1.1. The patient underwent a thoracentesis of the right lung. There was successful evacuation of approximately 1 L of pleural fluid without any significant complications or pneumothorax. The patient is currently on room air oxygen. The patient will have the pleural fluid sent for chemical analysis. Objective - Vital Signs Vital signs: Vital Signs Temp 97.5 F L 09/12/24 08:00 Pulse 86 09/12/24 08:00 Resp 18 09/12/24 08:00 BP 107/70 09/12/24 08:00 Pulse Ox 99 09/12/24 08:00 FiO2 Intake & Output 09/11/24 09/12/24 09/12/24 18:59 06:59 18:59 Intake Total 118 Output Total 302 Balance -302 118 Weight 55.5 kg Intake: Oral 118 Output: Urine 300 Stool 2 Other: Voiding Method External Catheter External Catheter External Catheter # Voids 1 - Exam No acute distress, oriented 3. The patient is currently on room air oxygen HEENT examination is grossly unremarkable. Mucous membranes are moist. No oral lesions. Neck supple. Full range of motion. No adenopathy thyromegaly or neck vein d istention. Cardiovascular examination reveals regular rhythm rate. S1-S2 normal. No S3 or S4. No discernible murmur noted. Lungs reveal basilar crackles. No wheezes or rhonchi. Breath sounds are equal. Diminished breath sound lung base especially in the left lung base, improvement in the aeration left lung base following the thoracentesis Abdomen soft bowel sounds are heard. No masses or tenderness. Extremities are intact. No cyanosis clubbing or edema. Skin is without rash or lesion. Neurologic examination is brief but nonfocal. - Labs CBC & Chem 7: 09/12/24 10:16 09/12/24 10:16 Labs: Abnormal Lab Results - Last 24 Hours (Table) 09/12/24 Range/Units 10:16 RBC 3.33 L (3.80-5.40) m/uL Hgb 7.2 L (11.4-16.0) gm/dL Hct 27.5 L (34.0-46.0) % MCH 21.5 L (25.0-35.0) pg MCHC 26.1 L (31.0-37.0) g/dL RDW 21.8 H (11.5-15.5) % Assessment and Plan Plan: Altered mental status, accompanied by hypothermia, acute moderate encephalopath y, possibly metabolic , etiology unclear. 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 Neurologically, stable at this point in time. Acute hypoxic respiratory failure secondary to bilateral pleural effusions, improving and the patient is currently on room air oxygen Bilateral pleural effusions s/p thoracentesis with evacuation of approximately 1 L from the left lung/left hemithorax Acute on chronic CHF, systolic dysfunction EF 40 to 45% in addition to valvular heart disease with severe mitral regurgitation, moderate TR and moderate degree of pulmonary hypertension Persistent atrial fibrillation with controlled ventricular rate, anticoagulated with Eliquis, currently off anticoagulation Chronic kidney disease stage III-IV, with a component of acute kidney injury and the acute component has been improving Elevated troponin, secondary to CKD, cardiology following Hypertension Hypothyroidism Possible vascular dementia plan Clinically stable on room air oxygen Left-sided thoracentesis was completed with evacuation of 1 L of pleural fluid Pleural fluid will be sent for analysis Continue Lasix Continue metoprolol No anticoagulants for now Zosyn has been discontinued May restart anticoagulation with Eliquis postthoracentesis Will continue to follow
--- NOTE | 2024-09-12 18:07 | P.PCN ---
Date of Procedure: 09/12/24 Preoperative Diagnosis: Left-sided pleural effusion Postoperative Diagnosis: Left-sided pleural effusion Procedure(s) Performed: Left-sided thoracentesis Anesthesia: local Surgeon: August Henderson Estimated Blood Loss (ml): 0 Pathology: other Condition: stable Disposition: floor Operative Findings: A time out was performed and the chest x-ray was reviewed, the appropriate side was confirmed and marked. My hands were washed immediately prior to the procedure. I wore a surgical cap, mask with protective eyewear, sterile gown and sterile gloves throughout the procedure. The patient was prepped and draped in a sterile manner using chlorhexidine scrub after the appropriate level was percussed and confirmed by ultrasound. 1% lidocaine was used to anesthesize the skin, subcutaneous tissue, superior aspect of the rib periosteum and parietal pleura. A finder needle was then introduced over the superior aspect of the rib to locate the pleural fluid; 2colored fluid was aspirated at a depth of approximately 2 cm. A 10-blade scalpel was used to vale the skin at the insertion site. The [id number] needle was then introduced through the skin incision into the pleural space using negative aspiration pressure and the red colometric indicator to confirm appropriate positioning of the needle. The thoracentesis catheter was then threaded without difficulty. 1000 ml of turbid colored fluid was removed without difficulty. The catheter was then removed. No immediate complications were noted during the procedure. A post-procedure chest x-ray is pending at the time of this note. The fluid will be sent for studies. Estimated blood loss is 0cc
[2024-09-13 02:49] LABS: Glucose, BF Source Pleural fluid; Glucose, Body Fluid 152 mg/dL; LDH, Body Fluid Source Pleural fluid; T. Protein, Body Fluid Source Pleural fluid; Total Protein, Body Fluid 1350 mg/dL
[2024-09-13 04:11] LABS: Appearance,BF Clear (Clear)
[2024-09-13 07:44] LABS: Anisocytosis Moderate; Basophils % (A) 0 %; Eosinophils # (A) 0.1 k/uL (0-0.7); Eosinophils % (A) 1 %; HCT 26.7 % (34.0-46.0); HGB 7.1 gm/dL (11.4-16.0); Hypochromasia Marked; Lymphocytes # (A) 1.5 k/uL (1.0-4.8); Lymphocytes % (A) 14 %; MCH 21.7 pg (25.0-35.0); MCHC 26.5 g/dL (31.0-37.0); MCV 82.1 fL (80.0-100.0); Mean Platelet Volume 8.1; Microcytosis Slight; Monocytes # (A) 0.8 k/uL (0-1.0); Monocytes % (A) 7 %; Neutrophils % (A) 76 %; Platelet Count 193 k/uL (150-450); Poikilocytosis Slight; RBC 3.25 m/uL (3.80-5.40); RDW 21.7 % (11.5-15.5); WBC 10.6 k/uL (3.8-10.6)
[2024-09-13 07:49] LABS: African American GFR (CKD) 50 (>60 ml/min/1.73 sqM); Anion Gap 4 mmol/L; Blood Urea Nitrogen 29 mg/dL (7-17); Calcium 8.5 mg/dL (8.4-10.2); Carbon Dioxide 28 mmol/L (22-30); Chloride 106 mmol/L (98-107); Glucose 77 mg/dL (74-99); Non-African American GFR(CKD) 43 (>60 ml/min/1.73 sqM); Potassium 3.6 mmol/L (3.5-5.1); Sodium 138 mmol/L (137-145)
[2024-09-13 09:55] VITALS: TEMP 97.7
[2024-09-13 12:08] VITALS: BP 128/67; PULSE 90; RESP 20
--- NOTE | 2024-09-13 15:24 | XR ---
EXAMINATION TYPE: XR chest 1V portable DATE OF EXAM: 09/13/2024 3:14 PM COMPARISON: Chest radiographs from 09/12/2024 CLINICAL INDICATION: Female, 84 years old with history of post right thoracentesis; [facility] TECHNIQUE: XR chest 1V portable Frontal view of the chest. FINDINGS/IMPRESSION: 1. Decrease in right pleural effusion. There remains bilateral pleural effusions. 2. No pneumothorax identified. 3. Left lower lung airspace opacities correlate for pulmonary edema versus atelectasis. 4. [facility]ome[facility]aly [facility], , 09/13/2024 3:22 PM
--- NOTE | 2024-09-13 16:15 | P.PN ---
Subjective Progress Note Date: 09/13/24 On 09/11/2024, the patient is being seen for a follow-up.On this is a 84-year-old female patient with multiple comorbidities was hospitalized for altered mental status. The patient is known to have previous history of CVA/TIA along with chronic kidney disease, anemia of chronic disease, and congestion heart failure. The patient had an acute encephalopathy, along with hypothermia and CAT scan of the brain showed remote lacunar infarct involving the right caudate head and neurologist on the case. The patient also had an acute hypoxic respiratory failure with bilateral pleural effusion and her echocardiogram showed systolic heart failure with an ejection fraction of 40 to 45%. She did have paroxysmal atrial fibrillation with controlled rate and the patient is on anticoagulation with Eliquis. Noted her echocardiogram also showed valvular heart disease with severe mitral regurgitation and secondary pulmonary pretension. Her other comorbidities include hypothyroidism, hypertension and v ascular dementia. Her white cell count is at 8.7 with a hemoglobin 7.4 and a platelet count of 156. BUN 34 with a creatinine of 1.37 and those labs are from yesterday. She remains on Aricept regarding her dementia. She remains on Lasix 40 mg p.o. twice a day and metoprolol XL 50 mg p.o. daily. She remains on IV Zosyn as an empiric antibiotic coverage. Blood cultures have been negative. The most recent chest x-ray from 09/05/2024 showed bilateral pleural effusions and ultrasound of the chest was done on 09/06/2024 revealed a large left-sided pleural effusion measuring around 9.4 cm in size. On 09/12/2024, the patient was able to sit up on the chair along with assistance. She continues to have shortness of breath even at rest and the patient is currently on room air oxygen. As noted earlier, the patient also has bilateral pleural effusions. Mental status seems to be adequate at this point and the patient has no focal neurological deficits. Nevertheless, she has generalized global weakness in all 4 extremities. She is currently off anticoagulation. She is known to have CHF with systolic heart failure with an ejection fraction 40 to 45% along with severe MR and moderate TR and moderate degree of pulm hypertension. She remains on Lasix. The patient is receiving Lasix 40 mg p.o. twice a day. WBC count is at 10 with a hemoglobin 7.2 and a platelet count is at 2 1. Serum bicarb is at 22 with a sodium level of 142 and a potassium level of 3.6. BUN 31 with a creatinine of 1.1. The patient underwent a thoracentesis of the right lung. There was successful evacuation of approximately 1 L of pleural fluid without any significant complications or pneumothorax. The patient is currently on room air oxygen. The patient will have the pleural fluid sent for chemical analysis. On 09/13/2024, the patient reports some improvement in respiratory status following a thoracentesis was performed yesterday. A total of 1000 cc of pleural fluid was aspirated from the patient's left lung and the pleural fluid is a transudate based on the protein and LDH criteria. No complications following the thoracentesis. Based on that, another thoracentesis was performed on the right this morning and the patient had another 500 cc of pleural fluid aspirated from the right lung without any complications. She is currently on room air oxygen with a pulse ox of 92 to 94%. She is still weak and debilitated and the patient is going to ECF. The white cell count of 10.6 with a hemoglobin 7.1 and a platelet count of 194. BUN is 29 with a creatinine of 1.1 and a sodium level is at 138. Anticoagulation is to be resumed. She is on Lasix 40 mg p.o. twice a day. Objective - Vital Signs Vital signs: Vital Signs Temp 97.7 F 09/13/24 08:00 Pulse 95 09/13/24 08:00 Resp 18 09/13/24 08:00 BP 116/71 09/13/24 08:00 Pulse Ox 94 L 09/13/24 08:00 FiO2 Intake & Output 09/12/24 09/13/24 09/13/24 18:59 06:59 18:59 Intake Total 598 240 Output Total 250 1 250 Balance 348 -1 -10 Weight 55.5 kg 55.5 kg Intake: Oral 598 240 Output: Urine 250 250 Stool 1 Other: Voiding Method External Catheter External Catheter External Catheter # Voids 1 # Bowel Movements 1 - Exam No acute distress, oriented 3. The patient is currently on room air oxygen HEENT examination is grossly unremarkable. Mucous membranes are moist. No oral lesions. Neck supple. Full range of motion. No adenopathy thyromegaly or neck vein distention. Cardiovascular examination reveals regular rhythm rate. S1-S2 normal. No S3 or S4. No discernible murmur noted. Lungs reveal basilar crackles. No wheezes or rhonchi. Breath sounds are equal. Diminished breath sound lung base especially in the left lung base, improvement in the aeration left lung base following the thoracentesis. Abdomen soft bowel sounds are heard. No masses or tenderness. Extremities are intact. No cyanosis clubbing or edema. Skin is without rash or lesion. Neurologic examination is brief but nonfocal. - Labs CBC & Chem 7: 09/13/24 07:01 09/13/24 07:01 Labs: Abnormal Lab Results - Last 24 Hours (Table) 09/12/24 09/13/24 09/13/24 Range/Units 10:16 07:01 07:01 RBC 3.25 L (3.80-5.40) m/uL Hgb 7.1 L (11.4-16.0) gm/dL Hct 26.7 L (34.0-46.0) % MCH 21.7 L (25.0-35.0) pg MCHC 26.5 L (31.0-37.0) g/dL RDW 21.7 H (11.5-15.5) % Neutrophils # 8.0 H (1.3-7.7) k/uL Chloride 108 H (98-107) mmol/L BUN 31 H 29 H (7-17) mg/dL Creatinine 1.16 H 1.16 H (0.52-1.04) mg/dL Glucose 161 H (74-99) mg/dL Microbiology - Last 24 Hours (Table) 09/12/24 14:00 Gram Stain - Preliminary Pleural Fluid Assessment and Plan Plan: Altered mental status, accompanied by hypothermia, acute moderate encephalopathy, possibly metabolic , etiology unclear. 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 Neurologically, stable at this point in time. The patient is awake and alert and communicating. She is profoundly weak and she needs rehabilitation., Another 500 cc of Acute hypoxic respiratory failure secondary to bilateral pleural effusions, improving and the patient is currently on room air oxygen Bilateral pleural effusions s/p thoracentesis with evacuation of approximately 1 L from the left lung/left hemithorax, another 500 cc of pleural fluid aspirated from the left and the fluid is a transudate. Acute on chronic CHF, systolic dysfunction EF 40 to 45% in addition to valvular heart disease with severe mitral regurgitation, moderate TR and moderate degree of pulmonary hypertension, patient is on Lasix Persistent atrial fibrillation with controlled ventricular rate, anticoagulated with Eliquis, and anticoagulation to be resumed Chronic kidney disease stage III-IV, with a component of acute kidney injury and the acute component has been improving Elevated troponin, secondary to CKD, cardiology following Hypertension Hypothyroidism Possible vascular dementia plan Clinically stable on room air oxygen Left-sided thoracentesis was completed with evacuation of 1 L of pleural fluid Right-sided thoracentesis completed with evacuation of 500 cc of pleural fluid Pleural fluid will be sent for analysis and it is a transudate Continue Lasix Continue metoprolol Resume anticoagulation with Eliquis Discharge planning is in progress
--- NOTE | 2024-09-13 16:16 | P.PCN ---
Date of Procedure: 09/13/24 Operative Findings: Preoperative Diagnosis: Right sided pleural effusion Postoperative Diagnosis: Right-sided pleural effusion Procedure(s) Performed: Right-sided thoracentesis Anesthesia: local Surgeon: August Henderson Estimated Blood Loss (ml): 0 Pathology: other Condition: stable Disposition: floor Operative Findings: A time out was performed and the chest x-ray was reviewed, the appropriate side was confirmed and marked. My hands were washed immediately prior to the procedure. I wore a surgical cap, mask with protective eyewear, sterile gown and sterile gloves throughout the procedure. The patient was prepped and draped in a sterile manner using chlorhexidine scrub after the appropriate level was percussed and confirmed by ultrasound. 1% lidocaine was used to anesthesize the skin, subcutaneous tissue, superior aspect of the rib periosteum and parietal pleura. A finder needle was then introduced over the superior aspect of the rib to locate the pleural fluid; 2colored fluid was aspirated at a depth of approximately 2 cm. A 10-blade scalpel was used to vale the skin at the insertion site. The [id number] needle was then introduced through the skin incision into the pleural space using negative aspiration pressure and the red colometric indicator to confirm appropriate positioning of the needle. The thoracentesis catheter was then threaded without difficulty. 500 ml of turbid colored fluid was removed without difficulty. The catheter was then removed. No immediate complications were noted during the procedure. A post-procedure chest x-ray is pending at the time of this note. The fluid will not be sent for studies. Estimated blood loss is 0cc
[2024-09-13] MEDS ORDERED: APIXABAN 2.5 MG TABLET PO SCH (21:00)
--- NOTE | 2024-09-14 11:58 | P.PN ---
Subjective Progress Note Date: 09/13/24 Principal diagnosis: Reason for follow-up is leukocytosis hypothermia/infection Patient is a 84-year-old female with a past medical history significant for hypertension hyperlipidemia osteoarthritis heart failure atrial fibrillation patient has been brought into the hospital for evaluation of confusion and decreased appetite patient noticed to be hypothermic did have elevated white count prompting this consultation. On today's evaluation that is 09/13/2024,the patient denies any fever or any chills, patient is breathing comfortably on room air, the patient is more awake and alert no chest pain or cough no abdominal pain and diarrhea has slowed down. Patient white count is 10.6, creatinine is 1.16 she did have a thoracocentesis yesterday white count was only 70 Objective - Vital Signs Vital signs: Vital Signs Temp 97.7 F 09/13/24 08:00 Pulse 95 09/13/24 08:00 Resp 18 09/13/24 08:00 BP 116/71 09/13/24 08:00 Pulse Ox 94 L 09/13/24 08:00 FiO2 Intake & Output 09/12/24 09/13/24 09/13/24 18:59 06:59 18:59 Intake Total 598 240 Output Total 250 1 250 Balance 348 -1 -10 Weight 55.5 kg 55.5 kg Intake: Oral 598 240 Output: Urine 250 250 Stool 1 Other: Voiding Method External Catheter External Catheter External Catheter # Voids 1 # Bowel Movements 1 - Exam GENERAL DESCRIPTION: An elderly female lying in bed in no distress RESPIRATORY SYSTEM: Unlabored breathing , decreased breath sounds at bases HEART: S1 S2 regular rate and rhythm , ABDOMEN: Soft , no tenderness EXTREMITIES: No edema feet - Labs CBC & Chem 7: 09/13/24 07:01 09/13/24 07:01 Labs: Abnormal Lab Results - Last 24 Hours (Table) 09/12/24 09/12/24 09/13/24 Range/Units 10:16 10:16 07:01 RBC 3.33 L 3.25 L (3.80-5.40) m/uL Hgb 7.2 L 7.1 L (11.4-16.0) gm/dL Hct 27.5 L 26.7 L (34.0-46.0) % MCH 21.5 L 21.7 L (25.0-35.0) pg MCHC 26.1 L 26.5 L (31.0-37.0) g/dL RDW 21.8 H 21.7 H (11.5-15.5) % Neutrophils # 8.0 H (1.3-7.7) k/uL Chloride 108 H (98-107) mmol/L BUN 31 H (7-17) mg/dL Creatinine 1.16 H (0.52-1.04) mg/dL Glucose 161 H (74-99) mg/dL 09/13/24 Range/Units 07:01 RBC (3.80-5.40) m/uL Hgb (11.4-16.0) gm/dL Hct (34.0-46.0) % MCH (25.0-35.0) pg MCHC (31.0-37.0) g/dL RDW (11.5-15.5) % Neutrophils # (1.3-7.7) k/uL Chloride (98-107) mmol/L BUN 29 H (7-17) mg/dL Creatinine 1.16 H (0.52-1.04) mg/dL Glucose (74-99) mg/dL Microbiology - Last 24 Hours (Table) 09/12/24 14:00 Gram Stain - Preliminary Pleural Fluid Assessment and Plan (1) Leukocytosis Status: Acute Code(s): D72.829 - ELEVATED WHITE BLOOD CELL COUNT, UNSPECIFIED SNOMED Code(s): 697657468 (2) Abnormal chest x-ray Status: Acute Code(s): R93.89 - ABNORMAL FINDINGS ON DX IMAGING OF OTH BODY STRUCTURES SNOMED Code(s): 913137096 (3) Altered mental status Status: Acute Code(s): R41.82 - ALTERED MENTAL STATUS, UNSPECIFIED SNOMED Code(s): 453178995 Plan: 1patient presented to hospital with weakness lethargic now patient did have evidence of hypothermia did have elevated white count patient denies having any headache no neck rigidity underlying [employer] infection less likely patient did have a cough some choking on food question of possible aspiration pneumonitis 2-blood cultures have been obtained which are currently pending chest x-ray with some effusion and infiltrate question of pneumonia 3-patient white count has normalized and the patient did have normalization of the temperature, however culture remains to be negative to have normal procalcitonin patient also have a thoracocentesis with a white count only 70 is mostly transudate and did well off antibiotic for 24 hours hence recommending no antibiotic at discharge Daughter at the bedside question answered Dictation was produced using [employer] (FIG) dictation software. please excuse any grammatical, word or spelling errors. Time with Patient: Less than 30
== END 2024-09-13 15:29 | DRG 291 ==
LOC: EC 13:26 → 3SCARD 17:17
PROVIDERS: ADMIT Family Medicine; ATTEND Family Medicine
PROC: 05HF33Z Insertion of Infusion Device into Left Cephalic Vein, Percutaneous Approach (ICD-10-PCS; 2024-09-11)
PROC: 0W9B3ZZ Drainage of Left Pleural Cavity, Percutaneous Approach (ICD-10-PCS; 2024-09-12)
PROC: 0W993ZZ Drainage of Right Pleural Cavity, Percutaneous Approach (ICD-10-PCS; principal; 2024-09-13)
DX: I13.0 Hypertensive heart and chronic kidney disease with heart failure and stage 1 through stage 4 chronic kidney disease, or unspecified chronic kidney disease (principal); G93.41 Metabolic encephalopathy; I50.23 Acute on chronic systolic (congestive) heart failure; J96.01 Acute respiratory failure with hypoxia; I48.19 Other persistent atrial fibrillation; N17.9 Acute kidney failure, unspecified; E78.5 Hyperlipidemia, unspecified; F01.50 Vascular dementia, unspecified severity, without behavioral disturbance, psychotic disturbance, mood disturbance, and anxiety; I27.20 Pulmonary hypertension, unspecified; E03.9 Hypothyroidism, unspecified; Z79.890 Hormone replacement therapy; D64.9 Anemia, unspecified; J43.9 Emphysema, unspecified; H91.90 Unspecified hearing loss, unspecified ear; D63.1 Anemia in chronic kidney disease; Z11.52 Encounter for screening for COVID-19; M81.0 Age-related osteoporosis without current pathological fracture; D72.829 Elevated white blood cell count, unspecified; I25.10 Atherosclerotic heart disease of native coronary artery without angina pectoris; G93.89 Other specified disorders of brain; N18.32 Chronic kidney disease, stage 3b; I08.1 Rheumatic disorders of both mitral and tricuspid valves; Z79.01 Long term (current) use of anticoagulants; Z79.899 Other long term (current) drug therapy; Z82.49 Family history of ischemic heart disease and other diseases of the circulatory system; Z86.73 Personal history of transient ischemic attack (TIA), and cerebral infarction without residual deficits
CPT/HCPCS: 36410; 36415; 70450; 70551; 71045; 76604; 76937; 80048; 80053; 80306; 81001; 81003; 82009; 82140; 82607; 82803; 82945; 83615; 83735; 83880; 84145; 84157; 84439; 84443; 84484; 85025; 85027; 85610; 85730; 86140; 86695; 86696; 87040; 87070; 87205; 87636; 88108; 88305; 89050; 93005; 93306; 94760; 95816; 96360; 96361; 99285